=== PATIENT | female | born 1955 | race Caucasian/White ===

== ENCOUNTER 2023-09-14 13:28 | Outpatient (CLI) | payer MEDICARE, BC, SELFPAY ==
--- OUTSIDE RECORDS SUMMARY | 2023-09-14 13:34 | XMS_ITS | Continuity of Care Document ---
Author Name Unknown Organization [facility] Address [address] [place] [address] [address] [place] [address] Phone Care Team Providers Care Web Assistant Name Role Phone No Information Unavailable Unavailable Procedures Procedure Date Office consultation, moderate 9 X-ray exam lwr spine, min 4 views X-ray exam of pelvis, 1-2 views 009 Advance Directives Directive Yes / No Effective Date File Name No Information Encounters Encounter Description Practice Location Reason(s) For Visit Diagnoses Date Provider Providers Copied on Encounter [facility], [address] [place] [address], [facility], tel:[phone] No Information 4-200 9 No Information Office consultation, moderate Z [facility], [address], [address], [place] tel:[phone] [facility] No Information [address]ir. [facility], [address], [id number], [place]. tel:[phone] Family History Family Member Type Diagnosis Age At Onset No Information Payers Payer name Insurance type Covered republican ID [employer] tibrain(s) [employer] WC [id number] [employer] CI [id number] Social History Type Description Quantity Date Captured Comments Sex Female Smoking Status No Information Chief Complaint And Reason For Visit No Information Reason For Referral Reason For Referral No Information History Of Present Illness Encounter Date Complaint History Of Prese nt Illness No Information Functional Status Date Functional Assessmen t No Information Instructions Date Instruction Additional Infor mation No Information Assessments Type Assessment Date No Information Patient Care Teams Name Effective Dates (start - stop) Status Members No Information
== END 2023-09-14 13:29 | disposition home or self-care (01) ==
LOC: INJ CL 13:32
PROVIDERS: PCP Surgery; Visit Provider Family Medicine
DX: M17.12 Unilateral primary osteoarthritis, left knee (principal); M25.562 Pain in left knee
CPT/HCPCS: 64454

== ENCOUNTER 2023-10-05 13:15 | Outpatient (CLI) | payer MEDICARE, BC, SELFPAY | END 2023-10-05 13:16 | disposition home or self-care (01) | LOC: INJ CL 13:16 | PROVIDERS: PCP Surgery; Visit Provider Family Medicine | DX: M17.12 Unilateral primary osteoarthritis, left knee (principal); M25.562 Pain in left knee; G89.29 Other chronic pain | CPT/HCPCS: 64624; J2250; J3010 ==

== ENCOUNTER 2024-04-11 14:48 | Outpatient (CLI) | payer MEDICARE, BC, SELFPAY | END 2024-04-11 14:49 | disposition home or self-care (01) | PROVIDERS: PCP Surgery; Visit Provider Family Medicine | DX: M17.12 Unilateral primary osteoarthritis, left knee (principal); M25.562 Pain in left knee | CPT/HCPCS: 64454 ==

== ENCOUNTER 2024-05-09 12:03 | Outpatient (CLI) | payer MEDICARE, BC, SELFPAY ==
--- OUTSIDE RECORDS SUMMARY | 2024-05-09 12:07 | XMS_ITS | Clinical Summary ---
Author Organization [facility] Address [address] [place] [address] Care Team Providers Care Project Account Manager Name Role Phone Arnoldo Mejia MD Primary Care Provider [phone] Allergies Active Allergy Reactions Criticality Noted Date Comments Alendronate Other (See Comments) 12/12/2021 Tooth problem - possible osteonecrosis Blood-Group Specific Substance Other (See Comments) Low 02/26/2019 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 Blood products may be delayed. Draw patient 24 hours prior to transfusion. Draw one red top and two purple top tubes for all type and screen orders. Patient has an anti-Tiara antibody. Blood products may be delayed. Draw patient 24 hours prior to transfusion. For [facility] testing, draw one red top and two purple top tubes for all Type and Screen orders. Cefazolin Anaphylaxis High 07/23/2016 Tolerates cephalexin Ibuprofen Other (See Comments),Unknown Medium 07/22/2009 6 unit upper GI bleed. Oxycodone-Acetaminop hen Visual Disturbance Low 05/09/2009 Oxycodone-Acetaminop hen Low 08/18/2021 Hallucination, tolerates [place] and plain APAP Salicylates Other (See Comments),Unknown Low 03/08/2009 Contraindicated Medications Medication Sig Dispensed Refills Start Date End Date Status allopurinol (ZYLOPRIM) 300 MG tablet Take 300 mg by mouth daily Active calcium-vitamin D (OSCAL) 250-125 MG-UNIT TABS per tablet Take 1 tablet by mouth 2 times daily Active escitalopram (LEXAPRO) 20 MG tablet Take 20 mg by mouth daily Active Surprise-3 Fatty Acids (FISH OIL) 600 MG CAPS Take 2 capsules by mouth daily Active metFORMIN (GLUCOPHAGE) 1000 MG tablet Take 1,000 mg by mouth 2 times daily (with meals) Active multivitamin w/minerals (THERA-VIT-M) tablet Take 1 tablet by mouth daily Active omeprazole (PRILOSEC) [address] capsule Take 20 mg by mouth daily Active triamterene-HCTZ (MAXZIDE-25) 37.5-25 MG tablet Take 1 tablet by mouth every morning Active buPROPion (WELLBUTRIN SR) 150 MG 12 hr tablet Take 150 mg by mouth 2 times daily Active atorvastatin (LIPITOR) 20 MG tablet Take 20 mg by mouth At Bedtime Active pramipexole (MIRAPEX) 0.125 MG tablet Take 0.25 mg by mouth At Bedtime Active aspirin 81 MG EC tablet Take 81 mg by mouth daily Active fentaNYL (DURAGESIC) 25 mcg/hr [address] 1 patch onto the skin every 72 hours 03/27/2024 Active FEROSUL 325 (65 Fe) MG tablet Take 325 mg by mouth daily (with breakfast) 03/16/2024 Active gabapentin (NEURONTIN) 600 MG tablet Take 1,200 mg by mouth 3 times daily 03/10/2024 Active Glucosamine-Chond roitin 250-200 MG TABS Take 1 tablet by mouth 2 times daily Active HYDROcodone-aceta minophen (NORCO) 10-325 MG per tablet TAKE 1 TABLET BY MOUTH EVERY 4 HOURS NEEDED FOR PAIN . DO NOT EXCEED 6 PER 24 HOURS (USE DATES 04/21/24-05/20/24 ) Active losartan (COZAAR) 25 MG tablet Take 1 tablet by mouth daily 03/04/2024 Active methocarbamol (ROBAXIN) 750 MG tablet Take 750 mg by mouth 3 times daily as needed for muscle spasms Active acetaminophen (TYLENOL) 500 MG tablet Take 500-1,000 mg by mouth every 8 hours as needed for mild pain Active Vitamin D3 (CHOLECALCIFEROL) 25 mcg (1000 units) tablet Take 25 mcg by mouth daily 4 Discontinued (Med Rec(No AVS / No eCancel)) Cinnamon Bark POWD Take 500 mg by mouth 2 times daily 4 Discontinued (Med Rec(No AVS / No eCancel)) cyclobenzaprine (FLEXERIL) 10 MG tablet Take 10 mg by mouth 3 times daily as needed for muscle spasms 4 Discontinued (Med Rec(No AVS / No eCancel)) fentaNYL (DURAGESIC) 50 mcg/hr [address] 1 patch onto the skin every 72 hours remove old patch. 4 Discontinued (Med Rec(No AVS / No eCancel)) lisinopril (ZESTRIL) 5 MG tablet Take 5 mg by mouth daily 4 Discontinued (Med Rec(No AVS / No eCancel)) nystatin-triamcin olone (MYCOLOG II) 484866-9.1 UNIT/GM-% external cream Apply topically 4 times daily 4 Discontinued (Med Rec(No AVS / No eCancel)) vitamin E 400 units TABS Take 400 Units by mouth daily 4 Discontinued (Med Rec(No AVS / No eCancel)) Misc Natural Products (OSTEO BI-FLEX/5-LOXIN ADVANCED PO) Take 1 tablet by mouth daily 4 Discontinued (Med Rec(No AVS / No eCancel)) ketotifen (ZADITOR) 0.025 % ophthalmic solution Place 1 drop into both eyes 2 times daily as needed for itching 4 Discontinued (Med Rec(No AVS / No eCancel)) senna-docusate (SENOKOT-S/MIKAELA LACE) 8.6-50 MG tabletIndications :Status post total replacement of right hip Take 1 tablet by mouth 2 times daily Take while on oral narcotics to prevent or treat constipation. 40 tablet 09/16/2021 4 Discontinued (Med Rec(No AVS / No eCancel)) aspirin 81 MG EC tabletIndications :Status post total replacement of right hip Take 1 tablet (81 mg) by mouth 2 times daily 60 tablet 09/16/2021 4 Discontinued (Med Rec(No AVS / No eCancel)) Ferrous Sulfate 324 (65 Fe) MG TBECIndications:A nemia due to blood loss, acute Take 1.0031 tablets (325 mg) by mouth daily 90 tablet 09/19/2021 4 Discontinued (Med Rec(No AVS / No eCancel)) gabapentin (NEURONTIN) 300 MG capsuleIndication s:Status post total replacement of right hip Take 2 capsules (600 mg) by mouth 3 times daily 30 capsule 09/19/2021 4 Discontinued (Med Rec(No AVS / No eCancel)) HYDROmorphone (DILAUDID) 2 MG tabletIndications :Status post total replacement of right hip Take 1 tablet (2 mg) by mouth 4 times daily as needed for moderate to severe pain or severe pain (2 mg for moderate pain and 4 mg for severe pain) 2 mg four times/day prn 26 tablet 09/19/2021 4 Discontinued (Med Rec(No AVS / No eCancel)) acetaminophen (TYLENOL) 325 MG tabletIndications :Status post total replacement of left hip Take 3 tablets (975 mg) by mouth 3 times daily 30 tablet 09/19/2021 4 Discontinued (Med Rec(No AVS / No eCancel)) levofloxacin (LEVAQUIN) 750 MG tabletIndications :Pneumonia due to infectious organism, unspecified laterality, unspecified part of lung Take 1 tablet (750 mg) by mouth daily for 4 days 4 tablet 04/29/2024 4 Active Problems Problem Noted Date Diagnosed Date Pneumonia due to infectious organism, unspecified laterality, unspecified part of lung 04/26/2024 Sepsis with encephalopathy w ithout septic shock, due to unspecified organism 04/26/2024 Chronic, continuous use of opioids 04/26/2024 Family history of colon cancer 04/26/2024 Tibial plateau fracture, rig ht, closed, with routine healing, subsequent encounter 04/26/2024 Vitamin D deficiency 04/26/2024 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 The antibody is directed against the [place] antigen. It is not difficult to screen for and fully crossmatch [place] negative RBCs (about 93% of donor population) but this will add 1-2 hours to provision of antigen negative fully crossmatched RBC units. Pedro Plata MD, 04/08/2021 10:44 AM Iron deficiency 02/12/2021 Nephrolithiasis 04/03/2019 Ascending aorta dilatation (H24) 04/08/2018 CAD in [place] artery 10/15/2016 Osteopenia 07/03/2016 Type 2 diabetes mellitus without complication Lumbar spinal stenosis 02/11/2015 Anxiety state 10/22/2009 Dyslipidemia 07/16/2009 HTN (hypertension) 07/16/2009 Hypothyroidism 07/16/2009 Compression fx, lumbar spine 01/23/2009 Depressive disorder 02/22/2007 Restless legs syndrome (RLS) 02/22/2007 Encounters Date Type Department Care Team Description 04/26/2024 10:10 AM CDT - 04/29/2024 1:58 PM CDT Hospital Encounter [facility] [address] [place] [address] Connor Mast MD Schotl, Brent, MD Imholte, Philip B, MD Pneumonia due to infectious organism, unspecified laterality, unspecified part of lung; Sepsis with encephalopathy without septic shock, due to unspecified organism (H) Discharge Disposition: Home or Self Care 04/26/2024 Travel from Last 3 Months Immunizations Name Administration Dates Next Due Hepatitis B, Adult 01/12/1997,12/22/1996 Influenza (H1N1) 10/22/2009 Influenza (High Dose) 3 tyler nt vaccine 07/21/2019 Influenza (intradermal) 09/07/2018,07/28,10/05/2017,2015,08/20/2015,08/12/2015,08/11/2015,1 ,08/18/2013,07/14/2012, 011,09/22/2010,07/19/2009,09/17/2008,,08/03/2003 Influenza Vaccine 65+ (Fluzone HD) 09/20/2021, Pneumo Conj 13-V (2010&after) 02/03/2019 Pneumococcal 23 valent 12/01/2010 TD,PF 7+ (Tenivac) 08/29/2001 Tdap (Adult) Unspecified Formulation 04/08/2021, 12/01/2010 Social History Tobacco Use Types Packs/Day Years Used Date Smoking Tobacco: Never Smokeless Tobacco: Never Alcohol Use Standard Drinks/Week Comments Never 0 (1 standard drink = 0.6 oz pur e alcohol) Adolescent Education Answer Date Record ed Getting School Help Needed Not on file 08/11 Sex and Gender Information Value Date Recorded Sex Assigned at Not on file Gender Identity Not on file Sexual Orientation Not on file Last Filed Vital Signs Vital Sign Reading Time Taken Comments Blood Pressure 131/73 04/29/2024 1:04 PM CDT Pulse 83 04/29/2024 1:04 PM CDT Temperature 36.6 ??C (97.8 ??F) 04/29/2024 1:04 PM CD T Respiratory Rate 18 04/29/2024 1:04 PM CDT Oxygen Saturation 90% 04/29/2024 1:04 PM CDT Inhaled Oxygen Concentration - - Weight 108.1 kg (238 lb 6.4 oz) 04/28/2024 4:50 AM CDT Height 154.9 cm (5' 1) 04/26/2024 10:1 5 AM CDT Body Mass Index 45.05 04/26/2024 10:15 AM CDT Plan of Treatment Health Maintenance Due Date Last Done Comments ADVANCE CARE PLANNING 1955 ANNUAL REVIEW OF HM ORDERS 1953 CONTROLLED SUBSTANCE AGREEMENT FOR CHRONIC PAIN MANAGEMENT 1953 CT COLONOGRAPHY 1953 DEXA 1953 DIABETIC FOOT EXAM 1953 FIT 1953 FLEX SIG 1953 MIGUEL ASSESSMENT 1953 LIPID 1953 MICROALBUMIN 1953 PHQ-9 1953 URINE DRUG SCREEN 1953 sDNA (Cologuard) 1953 HEPATITIS C SCREENING 1971 RSV VACCINE ( & 60+) (1 - 1-dose 60+ series) 2013 FALL RISK ASSESSMENT 2018 EYE EXAM 08/11/2022 08/11/2021 PHQ-2 (once per calendar year) 2023 MEDICARE ANNUAL WELLNESS VISIT 10/29/2023 10/29/2022 COVID-19 Vaccine (2022- season) 2024 11/29/2023, 09/28/2022, 06/15/2022, Additional history exists INFLUENZA VACCINE (#1) 2024 , 07/15/2022, 09/20/2021, Additional history exists A1C 07/27/2024 04/26/2024, 08/18/2021 MAMMO SCREENING 11/17/2024 11/17/2022, 10/26, 03/07/2021 BMP 04/29/2025 04/29/2024, 07/0 02/2024, 04/27/2024, Additional history exists COLONOSCOPY 08/08/2030 08/08/2020 COLORECTAL CANCER SCREENING 08/08/2030 DTAP/TDAP/TD IMMUNIZATION (3 - Td or Tdap) 04/08/2031 04/08/2021, 04/08/2021, 12/01/2010, Additional history exists Pneumococcal Vaccine: 65+ Years Completed 09/28/2022, 02/03/2019, 12/01/2010 ZOSTER IMMUNIZATION Completed 02/11/2023, 3 HPV IMMUNIZATION Aged Out No longer e ligible based on patient's age to complete this topic IPV IMMUNIZATION Aged Out No longer e ligible based on patient's age to complete this topic MENINGITIS IMMUNIZATION Aged Out No l onger eligible based on patient's age to complete this topic RSV MONOCLONAL ANTIBODY Aged Out No l onger eligible based on patient's age to complete this topic Medical Devices Implanted Type Area Merchandise Appraiser Device Identifier Shelf Expiration Date Model / Serial / Lot Imp Adams Hole Eliminator Hip Depuy Duraloc 1246-03-000 - [id number] Implanted:Qty : 1 on 09/16/2021 by Ehsan Dumont MD at [facility] Metallic Hardware/An chor Right: Hip [employer]- [id number] 03/24/2031 [id number] / / [id number] Imp Scr Bone Can Aram 6.5x30mm 1217-30-500 - [id number] Implanted:Qty : 1 on 09/16/2021 by Ehsan Dumont MD at [facility] Metallic Hardware/An chor Right: Hip [employer] [id number] 05/24/2031 [id number] / / [id number] Imp Scr Bone Can Aram 6.5x25mm 1217--500 - [id number] Implanted:Qty : 1 on 09/16/2021 by Ehsan Dumont MD at [facility] Metallic Hardware/An chor Right: Hip [employer] [id number] 11/24/2030 [id number] / / [id number] Shell Allons Sector W/ Gription 52mm - [id number] Implanted:Qty : 1 on 09/16/2021 by Ehsan Dumont MD at [facility] Total Joint Component/I nsert Right: Hip [employer] 07/24/2031 1217-32-052 / / [id number] Liner Acetabular Altrx +4 Neut 98n40uc - [id number] Implanted:Qty : 1 on 09/16/2021 by Ehsan Dumont MD at [facility] Total Joint Component/I nsert Right: Hip [employer] [id number] 07/24/2026 1221-36-452 / / [id number] Imp Head Femoral Depuy Ceramic 36mm +8mm 1365-36-330 - [id number] Implanted:Qty : 1 on 09/16/2021 by Ehsan Dumont MD at [facility] Total Joint Component/I nsert Right: Hip [employer] [id number] 04/23/2026 [id number] / / [id number] Imp Stem Fem Depuy Actis Std Collar Tpr Sz 6mm 1010-11-060 - [id number] Implanted:Qty : 1 on 09/16/2021 by Ehsan Dumont MD at [facility] Total Joint Component/I nsert Right: Hip [facility] [id number] 08/24/2031 [id number] / / [id number] Procedures Procedure Name Priority Date/Time Associated Diagnosis Comments GLUCOSE BY METER Routine 04/29/2024 11:1 5 AM CDT GLUCOSE BY METER Routine 04/29/2024 7:34 AM CDT EXTRA SERUM SEPARATOR TUBE (SST) Routine 04/29/2024 5:27 AM CDT EXTRA BLUE TOP TUBE Routine 04/29/2024 5 :27 AM CDT EXTRA TUBE Routine 04/29/2024 5:27 AM CDT PROCALCITONIN Routine 04/29/2024 5:27 AM CDT BASIC METABOLIC PANEL Routine 04/29/2024 5:27 AM CDT CBC WITH PLATELETS Routine 04/29/2024 5: 27 AM CDT GLUCOSE BY METER Routine 04/28/2024 9:21 PM CDT GLUCOSE BY METER Routine 04/28/2024 4:56 PM CDT GLUCOSE BY METER Routine 04/28/2024 11:3 2 AM CDT PROCALCITONIN Add-On 04/28/2024 5:55 AM CDT BASIC METABOLIC PANEL Routine 04/28/2024 5:55 AM CDT CBC WITH PLATELETS Routine 04/28/2024 5: 55 AM CDT GLUCOSE BY METER Routine 04/27/2024 9:55 PM CDT GLUCOSE BY METER Routine 04/27/2024 4:12 PM CDT GLUCOSE BY METER Routine 04/27/2024 11:1 7 AM CDT LEGIONELLA URINARY ANTIGEN AND STREPTOCOCCUS PNEUMONIAE ANTIGEN Routine 04/27/2024 9:33 AM CDT BASIC METABOLIC PANEL Routine 04/27/2024 7:52 AM CDT CBC WITH PLATELETS Routine 04/27/2024 7: 52 AM CDT GLUCOSE BY METER Routine 04/27/2024 7:31 AM CDT XR CHEST 2 VIEWS Routine 04/27/2024 7:03 AM CDT GLUCOSE BY METER Routine 04/26/2024 10:0 3 PM CDT GLUCOSE BY METER Routine 04/26/2024 4:09 PM CDT EKG 12-LEAD, TRACING ONLY STAT 04/26/2024 1:39 PM CDT LACTIC ACID WHOLE BLOOD STAT 04/26/2024 12:42 PM CDT ROUTINE UA WITH MICROSCOPIC REFLEX TO CULTURE STAT 04/26/2024 11:09 AM CDT XR CHEST PORT 1 VIEW STAT 04/26/2024 11:05 AM CDT BLOOD GAS VENOUS STAT 04/26/2024 10:5 7 AM CDT BLOOD CULTURE STAT 04/26/2024 10:46 AM CDT BLOOD CULTURE STAT 04/26/2024 10:46 AM CDT MRSA MSSA PCR, NASAL SWAB STAT 04/26/2024 10:37 AM CDT INFLUENZA A/B, RSV, & SARS-COV2 PCR STAT 04/26/2024 10:37 AM CDT PROCALCITONIN Add-On 04/26/2024 10:32 AM CDT TSH WITH FREE T4 REFLEX Add-On 04/26/2024 10:32 AM CDT EXTRA RED TOP TUBE STAT 04/26/2024 10 :32 AM CDT EXTRA BLUE TOP TUBE STAT 04/26/2024 1 0:32 AM CDT EXTRA TUBE STAT 04/26/2024 10:32 AM CDT CBC WITH PLATELETS & DIFFERENTIAL STAT 04/26/2024 10:30 AM CDT HEMOGLOBIN A1C Add-On 04/26/2024 10:30 AM CDT NT PROBNP INPATIENT STAT 04/26/2024 1 0:30 AM CDT CBC WITH PLATELETS AND DIFFERENTIAL STAT 04/26/2024 10:30 AM CDT LACTIC ACID WHOLE BLOOD WITH 1X REPEAT IN 2 HR WHEN >2 STAT 04/26/2024 10:30 AM CDT COMPREHENSIVE METABOLIC PANEL STAT 04/26/2024 10:30 AM CDT MA SCREENING BILATERAL W/ CORY Routine 11/17/2022 10:37 AM 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 [facility] GLUCOSE BY METER POCT 137(H) 70 - 99 mg/dL 04/29/2024 11:22 AM CDT LABORATORY Blood, Capillary BLOOD SPECIMEN / Unknown 04/29/2024 11:15 AM CDT 04/29/2024 11:22 AM CDT Chris Ford MD LAB - BEAKER POCT LABORATORY [facility] [address] [facility] [address], [facility] [phone] * Extra Serum Separator Tube (SST) (04/29/2024 5:27 AM CDT) Hold Specimen [facility] 04/29/2024 6:46 AM CDT LABORATORY Blood STRUCTURE OF RIGHT UPPER LIMB / Unknown Venipuncture / Unknown 04/29/2024 5:27 AM CDT 04/29/2024 5:42 AM CDT Chris Ford MD LAB - BLOOD ORDERABL ES Performing Organization Address [facility]/ZIP Co de Phone Number LABORATORY [facility] [address] [place] [address] [place] [address], [facility] [phone] * Extra Blue Top Tube (04/29/2024 5:27 AM CDT) Only the most recent of2 resultswithin the time period is included. Hold Specimen [facility] 04/29/2024 6:46 AM CDT LABORATORY Blood STRUCTURE OF RIGHT UPPER LIMB / Unknown Venipuncture / Unknown 04/29/2024 5:27 AM CDT 04/29/2024 5:43 AM CDT Chris Ford MD LAB - BLOOD ORDERABL ES LABORATORY [facility] [address] [place] [address], [facility] [phone] * Procalcitonin (04/29/2024 5:27 AM CDT) Only the most recent of3 resultswithin the time period is included. [facility] Procalcitonin 0.40 <0.50 ng/mL 04/29/2024 6:26 AM CDT LABORATORY Comment: Interpretation and Recommendations <0.5 ng/mL: Systemic bacterial infection unlikely. Local bacterial infection is possible. 0.5-1.99 ng/mL: Systemic bacterial infection possible, but various other conditions are known to induce PCT as well. >=2.00 ng/mL: Systemic bacterial infection likely, unless other causes are known. Decision to start antibiotics should not be based on procalcitonin level alone. See Procalcitonin Guidance document for more details. [email or web address] Factors that may affect PCT levels (not all-inclusive): ?? - Increased PCT level ?Severe trauma/espitia ?Invasive surgery ?Cooling therapy after cardiac arrest/surgery ?Treatment with agents which stimulate cytokines ?Acute kidney injury ?Chronic kidney disease and end stage renal disease ?Acute graft vs host disease ?Non-specific shock causing decreased organ perfusion and/or infarction ?? - Normal or unchanged PCT level ?Early in infections (if low and infection is suspected, repeating in 6-12 hours is recommended) ?Chronic infections (endocarditis, osteomyelitis, prosthetic device/graft infections) ?Localized infections (cellulitis, wound infections, intra-abdominal abscess) Note: PCT has not been extensively studied in /, pediatrics, severe immunosuppression, and cystic fibrosis. Blood STRUCTURE OF RIGHT UPPER LIMB / Unknown Venipuncture / Unknown 04/29/2024 5:27 AM CDT 04/29/2024 5:43 AM CDT Chris Ford MD LAB - BLOOD ORDERABL ES LABORATORY [facility] [address] [facility] [place] [address], [facility] [phone] * (ABNORMAL) Basic metabolic panel (04/29/2024 5:27 AM CDT) Only the most recent of3 resultswithin the time period is included. Sodium 136 135 - 145 mmol/L 04/29/2024 6:21 AM CDT LABORATORY Potassium 3.8 3.4 - 5.3 mmol/L 04/29/2024 6:21 AM T LABORATORY Chloride 96(L) 98 - 107 mmol/L 04/29/2024 6:21 AM T LABORATORY Carbon Dioxide (CO2) 33(H) 22 - 29 mmol/L 04/29/2024 6:21 AM [facility] LABOR[facility] Anion Gap 7 7 - 15 mmol/L 04/29/2024 6:21 AM T LABORATORY Urea Nitrogen 17.9 8.0 - 23.0 mg/dL 04/29/2024 6:21 AM T LABORATORY Creatinine 0.77 0.51 - 0.95 mg/dL 04/29/2024 6:21 AM T LABORATORY GFR Estimate 83 >60 mL/min/1.7 3m2 04/29/2024 6:21 AM [facility] LABORATORY Comment:eGFR calculated 2020 CKD-EPI equation. Calcium 9.1 8.8 - 10.2 mg/dL 04/29/2024 6:21 AM T LABORATORY Glucose 134(H) 70 - 99 mg/dL 04/29/2024 6:21 AM T LABORATORY Blood STRUCTURE OF RIGHT UPPER LIMB / Unknown Venipuncture / Unknown 04/29/2024 5:27 AM CDT 04/29/2024 5:43 AM CDT Chris Ford MD LAB - BLOOD ORDERABL ES LABORATORY [facility] [address] [facility] [place] [address], [facility] [phone] * (ABNORMAL) CBC with platelets (04/29/2024 5:27 AM CDT) Only the most recent of3 resultswithin the time period is included. WBC Count 6.0 4.0 - 11.0 10e3/uL 04/29/2024 5:48 AM CDT LABORATORY RBC Count 3.44(L) 3.80 - 5.20 10e6/uL 04/29/2024 5:48 AM CDT LABORATORY Hemoglobin 10.9(L) 11.7 - 15.7 g/dL 04/29/2024 5:48 AM CDT LABORATORY Hematocrit 33.2(L) 35.0 - 47.0 % 04/29/2024 5:48 AM CDT LABORATORY MCV 97 78 - 100 fL 04/29/2024 5:48 AM CDT LABORATORY MCH 31.7 26.5 - 33.0 pg 04/29/2024 5:48 AM CDT LABORATORY MCHC 32.8 31.5 - 36.5 g/dL 04/29/2024 5:48 AM CDT LABORATORY RDW 13.4 10.0 - 15.0 % 04/29/2024 5:48 AM CDT LABORATORY Platelet Count 151 150 - 450 10e3/uL 04/29/2024 5:48 AM CDT LABORATORY Blood STRUCTURE OF RIGHT UPPER LIMB / Unknown Venipuncture / Unknown 04/29/2024 5:27 AM CDT 04/29/2024 5:42 AM CDT Chris Ford MD LAB - BLOOD ORDERABL ES LABORATORY [facility] [address] [place] [address], [facility] [phone] * Legionella Urinary Antigen and Streptococcus pneumoniae antigen (04/27/2024 9:33 AM CDT) Pathologist [facility] Legionella pneumophila serogroup 1 urinary antigen Negative Negative KYLE 04/28/2024 3:22 PM CDT [facility] Comment:A negative result do es not exclude the possibility of a Legionella infection, as it can be caused by other serogroups and species of Legionella. Streptococcus pneumoniae antigen Negative Negative KYLE 04/28/2024 3:22 PM CDT [facility] Comment:A negative result do es not exclude a Streptococcus pneumoniae infection. Urine URINE SPECIMEN OBTAINED BY CLEAN CATCH PROCEDURE / Unknown Non-blood Collection / Unknown 04/27/2024 9:33 AM CDT 04/27/2024 11:06 AM CDT Narrative [facility] - 04/28/2024 3:22 PM CDT The result of this test as well as culture, serology, or other antigen detection methods should be used in conjunction with clinical findings to make an accurate diagnosis. Chris Ford MD LAB - MICRO GENERAL ORDERABLES [facility]AT[facility] Inf. Diseases Diag. Lab [address] [facility], [address] [place], [place] [phone] * XR Chest 2 Views (04/27/2024 7:03 AM CDT) Anatomical Region Laterality Modality Chest Computed Radiogr aphy 04/27/2024 6:46 AM CDT Impressions 04/27/2024 9:37 AM CDT IMPRESSION: Left lower lobe pneumonia. THIS DOCUMENT HAS BEEN ELECTRONICALLY SIGNED BY RY MASON MD Narrative 04/27/2024 9:37 AM CDT PROCEDURE INFORMATION: Exam: XR Chest Exam date and time: 04/27/2024 6:46 AM Age: 68 years old Clinical indication: Other: Sepsis TECHNIQUE: Imaging protocol: Radiologic exam of the chest. Views: 2 views. COMPARISON: CR XR CHEST PORT 1 VIEW 04/26/2024 10:57 AM FINDINGS: Lungs: There is consolidation in the left lower lung zone likely lower lobe developed/worsened compared to yesterday's study. Normal pulmonary vasculature. Pleural spaces: Unremarkable. No pleural effusion. No pneumothorax. Heart/Mediastinum: Normal heart size. TAVR. Bones/joints: Unremarkable. Procedure Note Ry Mason MD - 04/27/2024 PROCEDURE INFORMATION: Exam: XR Chest Exam date and time: 04/27/2024 6:46 AM Age: 68 years old Clinical indication: Other: Sepsis TECHNIQUE: Imaging protocol: Radiologic exam of the chest. Views: 2 views. COMPARISON: CR XR CHEST PORT 1 VIEW 04/26/2024 10:57 AM FINDINGS: Lungs: There is consolidation in the left lower lung zone likely lowerlobe developed/worsened compared to yesterday's study. Normal pulmonaryvasculature. Pleural spaces: Unremarkable. No pleural effusion. No pneumothorax. Heart/Mediastinum: Normal heart size. TAVR. Bones/joints: Unremarkable. IMPRESSION: Left lower lobe pneumonia. THIS DOCUMENT HAS BEEN ELECTRONICALLY SIGNED BY RY MASON MD Mike Gill MD IMG DIAGNOSTIC IMAGI NG ORDERABLES * EKG 12-lead, tracing only (04/26/2024 1:39 PM CDT) Systolic Blood Pressure mmHg RADIOLOGY RESULTS Diastolic Blood Pressure mmHg RADIOLOGY RESULTS Ventricular Rate 102 BPM RAD IOLOGY RESULTS Atrial Rate 102 BPM RADIOLOG Y RESULTS MN Interval 190 ms RADIOLOG Y RESULTS QRS Duration 106 ms RADIOLO GY RESULTS QT 386 ms RADIOLOGY RESULTS QTc 503 ms RADIOLOGY RESULTS P [place] 33 degrees RADIOLOGY RESULTS R AXIS 17 degrees RADIOLOGY RESULTS T [place] 42 degrees RADIOLOGY RESULTS Interpretation ECG wandering baseline limits interpretation supraventricular rhythm. No previous ECGs available Confirmed by MD MANFRED, [facility] ([id number]) on 04/28/2024 10:10:35 AM RADIOLOGY RESULTS 04/26/2024 1:39 PM CDT 04/28/2024 10:10 AM CDT Connor Mast MD ECG ORDERABLES RADIOLOGY RESULTS * Lactic acid whole blood (04/26/2024 12:42 PM CDT) Lactic Acid 1.6 0.7 - 2.0 mmol/L 04/26/2024 12:45 PM CDT LABORATORY Blood BLOOD SPECIMEN / Unknown Venipuncture / Unknown 04/26/2024 12:42 PM CDT 04/26/2024 12:43 PM CDT Connor Mast MD LAB - BLOOD ORDERABL ES LABORATORY [facility] [address] [place] [address], [facility] [phone] * (ABNORMAL) UA with Microscopic reflex to Culture (04/26/2024 11:09 AM CDT) Color Urine Light Yellow Colorless, Straw, Light Yellow, Yellow 04/26/2024 11:18 AM CDT LABORATORY Appearance Urine Clear Clear 04/26/20 11:18 AM CDT LABORATORY Glucose Urine Negative Negative mg/dL 04/26/2024 11:18 AM CDT LABORATORY Bilirubin Urine Negative Negative 11:18 AM CDT LABORATORY Ketones Urine Negative Negative mg/dL 04/26/2024 11:18 AM CDT LABORATORY Specific [place] Urine 1.012 1.000 - 1.030 04/26/2024 11:18 AM CDT LABORATORY Blood Urine Negative Negative 04/26/2024 11:18 AM CDT LABORATORY pH Urine 7.5 5.0 - 9.0 04/26/2024 11:18 AM CDT LABORATORY Protein Albumin Urine 200(A) Negative mg/dL 04/26/2024 11:18 AM CDT LABORATORY Urobilinogen Urine 2.0 Normal, 2.0 mg/dL 04/26/2024 11:18 AM CDT LABORATORY Nitrite Urine Negative Negative 04/26/2024 11:18 AM CDT LABORATORY Leukocyte Esterase Urine Negative Negative 04/26/2024 11:18 AM CDT LABORATORY RBC Urine 1 <=2 /HPF 04/26/2024 11:18 AM CDT LABORATORY WBC Urine 1 <=5 /HPF 04/26/2024 11:18 AM CDT LABORATORY Urine URINE SPECIMEN FROM URINARY CONDUIT / Unknown Non-blood Collection / Unknown 04/26/2024 11:09 AM CDT 04/26/2024 11:13 AM CDT Narrative LABORATORY - 04/26/2024 11:18 AM CDT Urine Culture not indicated Connor Mast MD LAB - URINE ORDERABL ES LABORATORY [facility] [address] [place] [address], [facility] [phone] * XR Chest Port 1 View (04/26/2024 11:05 AM CDT) Anatomical Region Laterality Modality Chest Computed Radiogr aphy Impressions 04/26/2024 11:10 AM CDT Impression: Constellation of findings suggesting CHF with developing perihilar/ infrahilar pulmonary edema. No apparent pleural effusion. NIRMAL SHANNON MD Narrative 04/26/2024 11:10 AM CDT Procedure:XR CHEST PORT 1 VIEW Clinical history:Female, 68 years, Fever Technique: Single view was obtained. Comparison: No relevant prior imaging. Findings: The cardiac silhouette appears mildly enlarged. The pulmonary vasculature is distended and indistinct The lungs demonstrate diffuse interstitial thickening with patchy areas of airspace consolidation. Costophrenic angles are sharp Bony structures are unremarkable. Procedure Note Nirmal Shannon MD - 04/26/2024 Procedure:XR CHEST PORT 1 VIEW Clinical history:Female, 68 years, Fever Technique: Single view was obtained. Comparison: No relevant prior imaging. Findings: The cardiac silhouette appears mildly enlarged. The pulmonary vasculature is distended and indistinct The lungs demonstrate diffuse interstitial thickening with patchy areas of airspace consolidation. Costophrenic angles are sharp Bony structures are unremarkable. Impression: Constellation of findings suggesting CHF with developing perihilar/ infrahilar pulmonary edema. No apparent pleural effusion. NIRMAL SHANNON MD Connor Mast MD IMG DIAGNOSTIC IMAGI NG ORDERABLES * (ABNORMAL) Blood gas venous (04/26/2024 10:57 AM CDT) pH Venous 7.35 7.32 - 7.43 04/26/2024 11:01 AM CDT LABORATORY pCO2 Venous 58(H) 40 - 50 mm Hg 04/26/2024 11:01 AM CDT LABORATORY pO2 Venous 36 25 - 47 mm Hg 04/26/2024 11:01 AM CDT LABORATORY Bicarbonate Venous 32(H) 21 - 28 mmol/L 04/26/2024 11:01 AM CDT LABORATORY Base Excess/Deficit Venous 4.6(H) -3.0 - 3.0 mmol/L 04/26/2024 11:01 AM CDT LABORATORY FIO2 36 KYLE 04/26/2024 11:01 AM CDT LABORATORY Oxyhemoglobin Venous 65(L) 70 - 75 % 04/26/2024 11:01 AM CDT LABORATORY O2 Sat, Venous 66.3(L) 70.0 - 75.0 % 04/26/2024 11:01 AM CDT LABORATORY Blood, venous BLOOD SPECIMEN / Unknown Venipuncture / Unknown 04/26/2024 10:57 AM CDT 04/26/2024 10:57 AM CDT Narrative LABORATORY - 04/26/2024 11:01 AM CDT In healthy individuals, oxyhemoglobin (O2Hb) and oxygen saturation (SO2) are approximately equal. In the presence of dyshemoglobins, oxyhemoglobin can be considerably lower than oxygen saturation. Connor Mast MD LAB - BLOOD ORDERABL ES [facility] [address] [place] [address], [facility] [phone] * Blood Culture Peripheral Blood (04/26/2024 10:46 AM CDT) Only the most recent of2 resultswithin the time period is included. Culture No Growth 05/01/2024 11:01 AM CDT LABORATORY Blood BLOOD SPECIMEN / Unknown Venipuncture / Unknown 04/26/2024 10:46 AM CDT 04/26/2024 10:57 AM CDT Connor Mast MD LAB - MICRO GENERAL ORDERABLES [facility] [address] [place] [address], [facility] [phone] * Symptomatic Influenza A/B, RSV, & SARS-CoV2 PCR (COVID-19) Nose (04/26/2024 10:37 AM CDT) Influenza A PCR Negative Negative 04/26/2024 11:23 AM CDT LABORATORY Influenza B PCR Negative Negative 04/26/2024 11:23 AM CDT LABORATORY RSV PCR Negative Negative 04/26/2024 11:23 AM CDT LABORATORY SARS CoV2 PCR Negative Negative 04/26/2024 11:23 AM CDT LABORATORY Comment:NEGATIVE: SARS-CoV-2 (COVID-19) RNA not detected, presumed negative. Swab NASAL STRUCTURE / Unknown Non-blood Collection / Unknown 04/26/2024 10:37 AM CDT 04/26/2024 10:42 AM CDT Narrative LABORATORY - 04/26/2024 11:23 AM CDT Testing was performed using the Xpert Xpress CoV2/Flu/RSV Assay on the [employer] GeneXpert Instrument. This test should be ordered for the detection of SARS-CoV-2, influenza, and RSV viruses in individuals who meet clinical and/or epidemiological criteria. Test performance is unknown in asymptomatic patients. This test is for in vitro diagnostic use under the FDA EUA for laboratories certified under CLIA to perform high or moderate complexity testing. This test has not been FDA cleared or approved. A negative result does not rule out the presence of PCR inhibitors in the specimen or target RNA in concentration below the limit of detection for the assay. If only one viral target is positive but coinfection with multiple targets is suspected, the sample should be re-tested with another FDA cleared, approved, or authorized test, if coinfection would change clinical management. This test was validated by the [facility] [employer]. These laboratories are certified under the Clinical Laboratory Improvement Amendments of 1988 (CLIA-88) as qualified to perform high complexity laboratory testing. Connor Mast MD LAB - MICRO GENERAL ORDERABLES LABORATORY [facility] [address] [place] [address], [facility] [phone] * MRSA/MSSA PCR (04/26/2024 10:37 AM CDT) MRSA Target DNA Negative Negative 04/26/2024 8:25 PM CDT [facility] SA Target DNA Negative 04/26/2024 8:25 PM CDT [facility] Swab NASAL STRUCTURE / Unknown Non-blood Collection / Unknown 04/26/2024 10:37 AM CDT 04/26/2024 10:42 AM CDT Narrative [facility] - 04/26/2024 8:25 PM CDT The Cepheid?? Xpert SA Nasal Complete assay performed in the Instilling Values?? Dx System is a qualitative in vitro diagnostic test designed for rapid detection of Staphylococcus aureus (SA) and methicillin-resistant Staphylococcus aureus (MRSA) from nasal swabs in patients at risk for nasal colonization. The test utilizes automated real- time polymerase chain reaction (PCR) to detect MRSA/SA DNA. The Xpert SA Nasal Complete assay is intended to aid in the prevention and control of MRSA/SA infections in healthcare settings. The assay is not intended to diagnose, guide or monitor treatment for MRSA/SA infections, or provide results of susceptibility to methicillin. A negative result does not preclude MRSA/SA nasal colonization. Connor aMst MD LAB - MICRO GENERAL ORDERABLES [facility]ORAT[facility] Lab [address] [place] [address], [facility] * Extra Red Top Tube (04/26/2024 10:32 AM CDT) Pathologist [facility] Hold Specimen JIC 04/26/2024 11:47 AM CDT LABORATORY Blood BLOOD SPECIMEN / Unknown Venipuncture / Unknown 04/26/2024 10:32 AM CDT 04/26/2024 10:34 AM CDT Connor Mast MD LAB - BLOOD ORDERABL ES LABORATORY [facility] [address] [place] [address], [facility] [phone] * TSH with free T4 reflex (04/26/2024 10:32 AM CDT) TSH 2.17 0.30 - 4.20 uIU/mL 04/26/2024 1:49 PM CDT LABORATORY Blood BLOOD SPECIMEN / Unknown Venipuncture / Unknown 04/26/2024 10:32 AM CDT 04/26/2024 10:34 AM CDT Mike Gill MD LAB - BLOOD ORDERABL ES LABORATORY [facility] [address] [facility] [place] [address], [facility] [phone] * (ABNORMAL) Lactic Acid Whole Blood with 1X Repeat in 2 HR when >2 (04/26/2024 10:30 AM CDT) Lactic Acid, Initial 2.5(H) 0.7 - 2.0 mmol/L 04/26/2024 10:39 AM CDT LABORATORY Blood BLOOD SPECIMEN / Unknown Venipuncture / Unknown 04/26/2024 10:30 AM CDT 04/26/2024 10:34 AM CDT Connor Mast MD LAB - BLOOD ORDERABL ES LABORATORY [facility] [address] [facility] [place] [address], [facility] [phone] * (ABNORMAL) CBC with platelets and differential (04/26/2024 10:30 AM CDT) WBC Count 11.8(H) 4.0 - 11.0 10e3/uL 04/26/2024 10:39 AM CDT LABORATORY RBC Count 4.46 3.80 - 5.20 10e6/uL 04/26/2024 10:39 AM CDT LABORATORY Hemoglobin 14.2 11.7 - 15.7 g/dL 04/26/2024 10:39 AM CDT [facility] LAB[facility]ATORY Hematocrit 42.6 35.0 - 47.0 % 04/26/2024 10:39 AM CDT [facility] MCV 96 78 - 100 fL 04/26/2024 10:39 AM CDT [facility] MCH 31.8 26.5 - 33.0 pg 04/26/2024 10:39 AM CDT [facility] MCHC 33.3 31.5 - 36.5 g/dL 04/26/2024 10:39 AM CDT [facility] RDW 13.3 10.0 - 15.0 % 04/26/2024 10:39 AM CDT [facility] Platelet Count 162 150 - 450 10e3/uL 04/26/2024 10:39 AM CDT [facility] % Neutrophils 87 % 04/26/2024 10:39 AM CDT [facility] % Lymphocytes 6 % 04/26/2024 10:39 AM CDT [facility] % Monocytes 6 % 04/26/2024 10:39 AM CDT [facility] % Eosinophils 0 % 04/26/2024 10:39 AM CDT [facility] % Basophils 0 % 04/26/2024 10:39 AM CDT [facility] % Immature Granulocytes 0 % 04/26/2024 10:39 AM CDT [facility] NRBCs per 100 WBC 0 <1 /100 024 10:39 AM CDT [facility] Absolute Neutrophils 10.3(H) 1.6 - 8.3 10e3/uL 04/26/2024 10:39 AM CDT [facility] Absolute Lymphocytes 0.7(L) 0.8 - 5.3 10e3/uL 04/26/2024 10:39 AM CDT [facility] Absolute Monocytes 0.7 0.0 - 1.3 10e3/uL 04/26/2024 10:39 AM CDT [facility] LAB[facility]AT[facility] Absolute Eosinophils 0.0 0.0 - 0.7 10e3/uL 04/26/2024 10:39 AM CDT [facility]AT[facility] Absolute Basophils 0.0 0.0 - 0.2 10e3/uL 04/26/2024 10:39 AM CDT [facility] LAB[facility]AT[facility] Absolute Immature Granulocytes 0.1 <=0.4 10e3/uL 04/26/2024 10:39 AM CDT [facility] LAB[facility]AT[facility] Absolute NRBCs 0.0 10e3/uL 04/26/2024 10:39 AM CDT [facility] LAB[facility]AT[facility] Blood BLOOD SPECIMEN / Unknown Venipuncture / Unknown 04/26/2024 10:30 AM CDT 04/26/2024 10:34 AM CDT Connor Mast MD LAB - BLOOD ORDERABL ES LABORATORY [facility] [address] [facility] [facility] [address], [facility] [phone] * NT pro BNP (04/26/2024 10:30 AM CDT) N terminal Pro BNP Inpatient 400 0 - 900 pg/mL 04/26/2024 11:27 AM CDT LABORATORY Comment: Reference range shown and results flagged as abnormal are suggested inpatient cut points for confirming diagnosis if CHF in an acute setting. Establishing a baseline value for each individual patient is useful for follow-up. An inpatient or emergency department NT-proPBNP <300 pg/mL effectively rules out acute CHF, with 99% negative predictive value. The outpatient non-acute reference range for ruling out CHF is: 0-125 pg/mL (age 18 to less than 75) 0-450 pg/mL (age 75 yrs and older) Blood BLOOD SPECIMEN / Unknown Venipuncture / Unknown 04/26/2024 10:30 AM CDT 04/26/2024 10:34 AM CDT Connor Mast MD LAB - BLOOD ORDERABL ES LABORATORY [facility] [address] [place] [address] [place] [address], [facility] [phone] * Hemoglobin A1c (04/26/2024 10:30 AM CDT) Hemoglobin A1C 6.2 4.0 - 6.2 % 04/26/2024 1:31 PM CDT LABORATORY Blood BLOOD SPECIMEN / Unknown Venipuncture / Unknown 04/26/2024 10:30 AM CDT 04/26/2024 10:34 AM CDT Mike Gill MD LAB - BLOOD ORDERABL ES LABORATORY [facility] [address] [place] [address], [facility] [phone] * (ABNORMAL) Comprehensive metabolic panel (04/26/2024 10:30 AM CDT) Sodium 134(L) 135 - 145 mmol/L 04/26/2024 11:00 AM T LABORATORY Potassium 3.7 3.4 - 5.3 mmol/L 04/26/2024 11:00 AM [facility] Carbon Dioxide (CO2) 32(H) 22 - 29 mmol/L 04/26/2024 11:00 AM [facility] Anion Gap 11 7 - 15 mmol/L 04/26/2024 11:00 AM [facility] Urea Nitrogen 10.9 8.0 - 23.0 mg/dL 04/26/2024 11:00 AM [facility] Creatinine 0.69 0.51 - 0.95 mg/dL 04/26/2024 11:00 AM [facility] GFR Estimate >90 >60 mL/min/1. 73m2 04/26/2024 11:00 AM [facility] Comment:eGFR calculated usin g 2020 CKD-EPI equation. Calcium 10.0 8.8 - 10.2 mg/dL 04/26/2024 11:00 AM [facility] Chloride 91(L) 98 - 107 mmol/L 04/26/2024 11:00 AM [facility] Glucose 169(H) 70 - 99 mg/dL 04/26/2024 11:00 AM T LABORATORY Alkaline Phosphatase 78 40 - 150 U/L 04/26/2024 11:00 AM [facility] AST 32 0 - 45 U/L 04/26/2024 11:00 AM [facility] Comment:Reference intervals for this test were updated on 04/05/2023 to more accurately reflect our healthy population. There may be differences in the flagging of prior results with similar values performed with this method. Interpretation of those prior results can be made in the context of the updated reference intervals. ALT 30 0 - 50 U/L 04/26/2024 11:00 AM CDT [facility] LAB[facility]ATORY Comment:Reference intervals for this test were updated on 04/05/2023 to more accurately reflect our healthy population. There may be differences in the flagging of prior results with similar values performed with this method. Interpretation of those prior results can be made in the context of the updated reference intervals. Protein Total 7.8 6.4 - 8.3 g/dL 04/26/2024 11:00 AM CDT [facility] LAB[facility]AT[facility] Albumin 4.8 3.5 - 5.2 g/dL 04/26/2024 11:00 AM CDT LABORATORY Bilirubin Total 0.8 <=1.2 mg/dL 04/26/2024 11:00 AM CDT LABORATORY Blood BLOOD SPECIMEN / Unknown Venipuncture / Unknown 04/26/2024 10:30 AM CDT 04/26/2024 10:34 AM CDT Connor Mast MD LAB - BLOOD ORDERABL ES LABORATORY [facility] [address] [place] [address] [phone] from Last 3 Months or Most Recently Relevant to Health Maintenance Advance Directives For more information, please contact: [phone] * Full Code (Latest Code Status on File) Date Activated Date Inactivated Comments 04/26/2024 2:32 PM 04/29/2024 4:03 PM All basic and advanced life-sustaining interventions are performed as appropriate Question Answer Comments Code status determined by: Discussion with patie nt/ legal decision maker * Full Code Date Activated Date Inactivated Comments 09/16/2021 11:25 AM 09/20/2021 5:39 PM All basic and advanced life-sustaining interventions are performed as appropriate Question Answer Comments Code status determined by: Unable to dis cuss and no AD/POLST on file; continue PREVIOUSLY ORDERED code status Care Teams Project Account Manager Relationship Specialty Start Date End Date Arnoldo Mejia MD [address] [place] [address] PCP - General 08/26/21
--- OUTSIDE RECORDS SUMMARY | 2024-05-09 12:07 | XMS_ITS | Referral Summary ---
Author Organization [facility] Address [address] [place] [address] Care Team Providers Care Cylinder Inspector Name Role Phone Arnoldo Mejia MD Primary Care Provider [phone] Encounters Date Type Department Care Team Description 04/26/2024 10:10 AM CDT - 04/29/2024 1:58 PM CDT Hospital Encounter [facility] [address] [place] [address] Connor Mast MD Schotl, Brent, MD Imholte, Philip B, MD Pneumonia due to infectious organism, unspecified laterality, unspecified part of lung; Sepsis with encephalopathy without septic shock, due to unspecified organism (H) Discharge Disposition: Home or Self Care 04/26/2024 Travel from Last 3 Months Allergies Active Allergy Reactions Criticality Noted Date Comments Alendronate Other (See Comments) 12/12/2021 Tooth problem - possible osteonecrosis Blood-Group Specific Substance Other (See Comments) Low 02/26/2019 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 Blood products may be delayed. Draw patient 24 hours prior to transfusion. Draw one red top and two purple top tubes for all type and screen orders. Patient has an anti-[place] antibody. Blood products may be delayed. Draw patient 24 hours prior to transfusion. For [facility] testing, draw one red top and two purple top tubes for all Type and Screen orders. Cefazolin Anaphylaxis High 07/23/2016 Tolerates cephalexin Ibuprofen Other (See Comments),Unknown Medium 07/22/2009 6 unit upper GI bleed. Oxycodone-Acetaminop hen Visual Disturbance Low 05/09/2009 Oxycodone-Acetaminop hen Low 08/18/2021 Hallucination, tolerates [place] and plain APAP Salicylates Other (See Comments),Unknown Low 03/08/2009 Contraindicated Medications Medication Sig Dispensed Refills Start Date End Date Status allopurinol (ZYLOPRIM) 300 MG tablet Take 300 mg by mouth daily Active calcium-vitamin D (OSCAL) 250-125 MG-UNIT TABS per tablet Take 1 tablet by mouth 2 times daily Active escitalopram (LEXAPRO) 20 MG tablet Take 20 mg by mouth daily Active [place]-3 Fatty Acids (FISH OIL) 600 MG CAPS [...] / No eCancel)) nystatin-triamcin olone (MYCOLOG II) 231934-0.1 UNIT/GM-% external cream Apply topically 4 times [...] 04/08/21. The antibody is directed against the [place] antigen. It is not difficult to screen for and fully crossmatch [place] negative RBCs (about 93% of donor population) but this will add 1-2 hours to provision of antigen negative fully crossmatched RBC units. Pedro Plata MD, 04/08/2021 10:44 AM Iron deficiency 02/12/2021 Nephrolithiasis 04/03/2019 Ascending aorta dilatation (H24) 04/08/2018 CAD in [place] artery 10/15/2016 Osteopenia 07/03/2016 Type 2 diabetes mellitus without complication Lumbar spinal stenosis 02/11/2015 Anxiety state 10/22/2009 Dyslipidemia 07/16/2009 HTN (hypertension) 07/16/2009 Hypothyroidism 07/16/2009 Compression fx, lumbar spine 01/23/2009 Depressive disorder 02/22/2007 Restless legs syndrome (RLS) 02/22/2007 Immunizations Name Administration Dates Next Due Hepatitis [...] 04/26/2024 10:15 AM CDT Plan of Treatment Not on file Medical Devices Implanted Type Area Asphalt Spreader Operator Device Identifier Shelf Expiration Date Model / Serial / Lot Imp [place] Hole Eliminator Hip Depuy Duraloc 1246-03-000 - [id number] Implanted:Qty : 1 on 09/16/2021 by Ehsan Dumont MD at [facility] Metallic Hardware/An chor Right: Hip [employer] [id number] 03/24/2031 [id number] / / [id number] Imp Scr Bone Can Aram 6.5x30mm 1217-30-500 - [id number] Implanted:Qty : 1 on 09/16/2021 by Ehsan Dumont MD at [facility] Metallic Hardware/An chor Right: Hip [employer] [id number] 05/24/2031 [id number] / / [id number] Imp Scr Bone Can Aram 6.5x25mm 1217-25-500 - [id number] Implanted:Qty : 1 on 09/16/2021 by Ehsan Dumont MD at [facility] Metallic Hardware/An chor Right: Hip [employer] [id number] 11/24/2030 [id number] / / [id number] Shell [place] W/ Gription 52mm - [id number] Implanted:Qty : 1 on 09/16/2021 by Ehsan Dumont MD at [facility] Total Joint Component/I nsert Right: Hip [employer] 07/24/2031 1217-32-052 / / [id number] Liner Acetabular Altrx +4 Neut [id number] - [id number] Implanted:Qty : 1 on 09/16/2021 by Ehsan Dumont MD at [facility] Total Joint Component/I nsert Right: Hip [employer] [id number] 07/24/2026 1221-36-452 / / [id number] Imp Head Femoral Depuy Ceramic 36mm +8mm 1365-36-330 - [id number] Implanted:Qty : 1 on 09/16/2021 by Ehsan Dumont MD at [facility] Total Joint Component/I nsert Right: Hip [employer] [id number] 04/23/2026 [id number] / / [id number] Imp Stem Fem Depuy Actis Std Collar Tpr Sz 6mm 1010-11-060 - [id number] Implanted:Qty : 1 on 09/16/2021 by Ehsan Dumont MD at [facility] Total Joint Component/I nsert Right: Hip [employer] [id number] 08/24/2031 [id number] / / [id number] Procedures Procedure Name Priority Date/Time Associated Diagnosis [...] BILATERAL W/ CORY Routine 11/17/2022 10:37 AM SHANK ARCHER from Last 3 Months or Most Recently Relevant to Health Maintenance Results * (ABNORMAL) Glucose by meter (04/29/2024 11:15 AM CDT) Only the most recent of11 resultswithin the time period is included. [facility] GLUCOSE BY METER POCT 137(H) 70 - 99 mg/dL 04/29/2024 11:22 AM CDT [facility] LABORATORY Blood, Capillary BLOOD SPECIMEN / Unknown 04/29/2024 11:15 AM CDT 04/29/2024 11:22 AM CDT Chris Ford MD LAB - BEAKER POCT LABORATORY [facility] [address] [place] [address], [facility] [phone] * Extra Serum Separator Tube (SST) (04/29/2024 5:27 AM CDT) Hold Specimen [facility] 04/29/2024 6:46 AM CDT LABORATORY Blood STRUCTURE OF RIGHT UPPER LIMB / Unknown Venipuncture / Unknown 04/29/2024 5:27 AM CDT 04/29/2024 5:42 AM CDT Chris Ford MD LAB - BLOOD ORDERABL ES Performing Organization Address [facility] Care [facility]/ZIP Co de Phone Number LABORATORY [facility] [address] [place] [address], [facility] [phone] * Extra Blue Top Tube (04/29/2024 5:27 AM CDT) Only the most recent of2 resultswithin the time period is included. Hold Specimen [facility] 04/29/2024 6:46 AM CDT LABORATORY Blood STRUCTURE OF RIGHT UPPER LIMB / Unknown Venipuncture / Unknown 04/29/2024 5:27 AM CDT 04/29/2024 5:43 AM CDT Chris Ford MD LAB - BLOOD ORDERABL ES LABORATORY [facility] [address] [place] [address], [facility] [phone] * Procalcitonin (04/29/2024 5:27 AM CDT) Only the most recent of3 resultswithin the time period is included. Procalcitonin 0.40 <0.50 ng/mL 04/29/2024 6:26 AM [...] See Procalcitonin Guidance document for more details. [email or web address] Factors that may affect PCT levels (not [...] MD LAB - BLOOD ORDERABL ES LABORATORY [facility] [address] [place] [address], [facility] [phone] * (ABNORMAL) Basic metabolic panel (04/29/2024 5:27 AM CDT) Only the most recent of3 resultswithin the time period is included. [facility] Sodium 136 135 - 145 mmol/L 04/29/2024 6:21 AM CDT LABORATORY Potassium 3.8 3.4 - 5.3 mmol/L 04/29/2024 6:21 AM T LABORATORY Chloride 96(L) 98 - 107 mmol/L 04/29/2024 6:21 AM [facility] LABORATORY Carbon Dioxide (CO2) 33(H) 22 - 29 mmol/L 04/29/2024 6:21 AM [facility] LAB[facility]ATORY Anion Gap 7 7 - 15 mmol/L 04/29/2024 6:21 AM [facility] LAB[facility] Urea Nitrogen 17.9 8.0 - 23.0 mg/dL 04/29/2024 6:21 AM T LABORATORY Creatinine 0.77 0.51 - 0.95 mg/dL 04/29/2024 6:21 AM T LABORATORY GFR Estimate 83 >60 mL/min/1.7 3m2 04/29/2024 6:21 AM [facility] LABORATORY Comment:eGFR calculated 2020 CKD-EPI equation. Calcium 9.1 8.8 - 10.2 mg/dL 04/29/2024 6:21 AM [facility] LABORATORY Glucose 134(H) 70 - 99 mg/dL 04/29/2024 6:21 AM [facility] LABORATORY Blood STRUCTURE OF RIGHT UPPER LIMB / Unknown Venipuncture / Unknown 04/29/2024 5:27 AM CDT 04/29/2024 5:43 AM CDT Chris Ford MD LAB - BLOOD ORDERABL ES LABORATORY [facility] [address] [place] [address], [facility] [phone] * (ABNORMAL) CBC with platelets (04/29/2024 5:27 AM CDT) Only the most recent of3 resultswithin the time period is included. [facility] WBC Count 6.0 4.0 - 11.0 10e3/uL [...] MD LAB - BLOOD ORDERABL ES LABORATORY [facility] [address] [place] [address], [facility] [phone] * Legionella Urinary Antigen and Streptococcus pneumoniae antigen (04/27/2024 9:33 AM CDT) [facility] Legionella pneumophila serogroup 1 urinary antigen Negative [...] AM CDT 04/27/2024 11:06 AM CDT Narrative [facility] - 04/28/2024 3:22 PM CDT The result of this test as well as culture, serology, or other antigen detection methods should be used in conjunction with clinical findings to make an accurate diagnosis. Chris Ford MD LAB - MICRO GENERAL ORDERABLES [facility]ORATORY [facility] Inf. Diseases Diag. Lab [address] [facility] [place] [address] * XR Chest 2 Views (04/27/2024 7:03 [...] Atrial Rate 102 BPM RADIOLOG Y RESULTS DC Interval 190 ms RADIOLOG Y RESULTS QRS Duration 106 ms RADIOLO GY RESULTS QT 386 ms RADIOLOGY RESULTS QTc 503 ms RADIOLOGY RESULTS P [place] 33 degrees RADIOLOGY RESULTS R AXIS 17 degrees RADIOLOGY RESULTS T [place] 42 degrees RADIOLOGY RESULTS Interpretation ECG wandering baseline limits interpretation supraventricular rhythm. No previous ECGs available Confirmed by MD MANFRED, [facility] ([id number]) on 04/28/2024 10:10:35 AM RADIOLOGY RESULTS 04/26/2024 [...] MD LAB - BLOOD ORDERABL ES LABORATORY [facility] [address] [place] [address], [facility] [phone] * (ABNORMAL) UA with Microscopic reflex to [...] mg/dL 04/26/2024 11:18 AM CDT LABORATORY Specific [place] Urine 1.012 1.000 - 1.030 04/26/2024 11:18 [...] Urine 1 <=5 /HPF 04/26/2024 11:18 AM T LABORATORY Urine URINE SPECIMEN FROM URINARY CONDUIT / Unknown Non-blood Collection / Unknown 04/26/2024 11:09 AM CDT 04/26/2024 11:13 AM CDT Narrative LABORATORY - 04/26/2024 11:18 AM CDT Urine Culture not indicated Connor Mast MD LAB - URINE ORDERABL ES LABORATORY [facility] [address] [place] [address], [facility] [phone] * XR Chest Port 1 View (04/26/2024 [...] effusion. NIRMAL SHANNON MD Connor Mast MD G DIAGNOSTIC IMAGI NG ORDERABLES * (ABNORMAL) Blood [...] Mast MD LAB - BLOOD ORDERABL ES Performing Organization Address City/[facility] Care [facility]/ZIP Co de Phone Number [facility] [place] [address], [facility] [phone] * Blood Culture Peripheral Blood (04/26/2024 10:46 AM CDT) Only the most recent of2 resultswithin the time period is included. Pathologist [facility] Culture No Growth 05/01/2024 11:01 AM CDT LABORATORY Blood BLOOD SPECIMEN / Unknown Venipuncture / Unknown 04/26/2024 10:46 AM CDT 04/26/2024 10:57 AM CDT Connor Mast MD LAB - MICRO GENERAL ORDERABLES [facility] [address] [address], [facility] [phone] * Symptomatic Influenza A/B, RSV, & SARS-CoV2 [...] the Xpert Xpress CoV2/Flu/RSV Assay on the [employer] GeneXpert Instrument. This test should be ordered [...] management. This test was validated by the [facility]. These laboratories are certified under the Clinical Laboratory Improvement Amendments of 1988 (CLIA-88) as qualified to perform high complexity laboratory testing. Connor Mast MD LAB - MICRO GENERAL ORDERABLES LABORATORY [facility] [address] [place] [address], [facility] [phone] * MRSA/MSSA PCR (04/26/2024 10:37 AM CDT) [...] SA Nasal Complete assay performed in the GeneTalkSession?? Dx System is a qualitative in vitro [...] does not preclude MRSA/SA nasal colonization. Connor Mast MD LAB - MICRO GENERAL ORDERABLES [facility] LABORATORY [facility] Inf. Diseases Diag. Lab [address] [facility] [place] [address], [facility] * Extra Red Top Tube (04/26/2024 10:32 AM CDT) Hold Specimen [facility] 04/26/2024 11:47 AM CDT LABORATORY Blood BLOOD SPECIMEN / Unknown Venipuncture / Unknown 04/26/2024 10:32 AM CDT 04/26/2024 10:34 AM CDT Connor Mast MD LAB - BLOOD ORDERABL ES LABORATORY [facility] [address] [place] [address], [facility] [phone] * TSH with free T4 reflex (04/26/2024 10:32 AM CDT) TSH 2.17 0.30 - 4.20 uIU/mL 04/26/2024 1:49 PM CDT LABORATORY Blood BLOOD SPECIMEN / Unknown Venipuncture / Unknown 04/26/2024 10:32 AM CDT 04/26/2024 10:34 AM CDT Mike Gill MD LAB - BLOOD ORDERABL ES Performing Organization Address City/[facility]/ZIP Co de Phone Number LABORATORY [facility] [address] [facility] [place] [address], [facility] [phone] * (ABNORMAL) Lactic Acid Whole Blood with 1X Repeat in 2 HR when >2 (04/26/2024 10:30 AM CDT) Lactic Acid, Initial 2.5(H) 0.7 - 2.0 mmol/L 04/26/2024 10:39 AM CDT LABORATORY Blood BLOOD SPECIMEN / Unknown Venipuncture / Unknown 04/26/2024 10:30 AM CDT 04/26/2024 10:34 AM CDT Connor Mast MD LAB - BLOOD ORDERABL ES Performing Organization Address City/[facility]/ZIP Co de Phone Number LABORATORY [facility] [address] [place] [address], [facility] [phone] * (ABNORMAL) CBC with platelets and differential (04/26/2024 10:30 AM CDT) WBC Count 11.8(H) 4.0 - 11.0 10e3/uL 04/26/2024 10:39 AM CDT LABORATORY RBC Count 4.46 3.80 - 5.20 10e6/uL 04/26/2024 10:39 AM CDT LABORATORY Hemoglobin 14.2 11.7 - 15.7 g/dL 04/26/2024 10:39 AM CDT LABORATORY Hematocrit 42.6 35.0 - 47.0 % 04/26/2024 10:39 AM CDT LABORATORY MCV 96 78 - 100 fL 04/26/2024 10:39 AM CDT LABORATORY MCH 31.8 26.5 - 33.0 pg [...] MD LAB - BLOOD ORDERABL ES LABORATORY [facility] [address] [facility] [address], [facility] [phone] * NT pro BNP (04/26/2024 10:30 AM [...] Mast MD LAB - BLOOD ORDERABL ES Performing Organization Address [facility] Co de Phone Number LABORATORY [facility] [address] [place] [address] [place] [address], [facility] [phone] * Hemoglobin A1c (04/26/2024 10:30 AM CDT) Hemoglobin A1C 6.2 4.0 - 6.2 % 04/26/2024 1:31 PM CDT LABORATORY Blood BLOOD SPECIMEN / Unknown Venipuncture / Unknown 04/26/2024 10:30 AM CDT 04/26/2024 10:34 AM CDT Mike Gill MD LAB - BLOOD ORDERABL ES LABORATORY [facility] [address] [facility] [address], [facility] [phone] * (ABNORMAL) Comprehensive metabolic panel (04/26/2024 10:[address] [facility]) Sodium 134(L) 135 - 145 mmol/L 04/26/2024 11:00 AM [facility] LABORATORY Potassium 3.7 3.4 - 5.3 mmol/L 04/26/2024 11:00 AM [facility] LABORATORY Carbon Dioxide (CO2) 32(H) 22 - 29 mmol/L 04/26/2024 11:00 AM [facility] LAB[facility]ATORY Anion Gap 11 7 - 15 mmol/L 04/26/2024 11:00 AM [facility] LAB[facility]ORY Urea Nitrogen 10.9 8.0 - 23.0 mg/dL 04/26/2024 11:00 AM [facility] LAB[facility]ATORY Creatinine 0.69 0.51 - 0.95 mg/dL 04/26/2024 11:00 AM [facility] LABORATORY GFR Estimate >90 >60 mL/min/1. 73m2 04/26/2024 11:00 AM [facility] LAB[facility]ATORY Comment:eGFR calculated usin 2020 CKD-EPI equation. Calcium 10.0 8.8 - 10.2 mg/dL 04/26/2024 11:00 AM [facility] LABORATORY Chloride 91(L) 98 - 107 mmol/L 04/26/2024 11:00 AM [facility] LAB[facility]ATORY Glucose 169(H) 70 - 99 mg/dL 04/26/2024 11:00 AM [facility] LABORATORY Alkaline Phosphatase 78 40 - 150 U/L 04/26/2024 11:00 AM [facility] LABORATORY AST 32 0 - 45 U/L 04/26/2024 11:00 AM [facility] LAB[facility]ATORY Comment:Reference intervals for this test were updated on 04/05/2023 to more accurately reflect our healthy population. There may be differences in the flagging of prior results with similar values performed with this method. Interpretation of those prior results can be made in the context of the updated reference intervals. ALT 30 0 - 50 U/L 04/26/2024 11:00 AM [facility] LABORATORY Comment:Reference intervals for this test were updated on 04/05/2023 to more accurately reflect our healthy population. There may be differences in the flagging of prior results with similar values performed with this method. Interpretation of those prior results can be made in the context of the updated reference intervals. Protein Total 7.8 6.4 - 8.3 g/dL 04/26/2024 11:00 AM CDT LABORATORY Albumin 4.8 3.5 - 5.2 g/dL 04/26/2024 11:00 AM CDT LABORATORY Bilirubin Total 0.8 <=1.2 mg/dL 04/26/2024 11:00 AM CDT LABORATORY Blood BLOOD SPECIMEN / Unknown Venipuncture / Unknown 04/26/2024 10:30 AM CDT 04/26/2024 10:34 AM CDT Connor Mast MD LAB - BLOOD ORDERABL ES LABORATORY [facility] Laboratory [address] [place] [address], [facility] [phone] from Last 3 Months or Most Recently Relevant to Health Maintenance Advance Directives For more information, please contact: [phone] * Full Code (Latest Code Status on File) Date Activated Date Inactivated Comments 04/26/2024 2:32 PM 04/29/2024 4:03 PM All basic and advanced life-sustaining interventions are performed as appropriate Question Answer Comments Code status determined by: Discussion with manda danielle/ legal decision maker * Full Code Date Activated Date Inactivated Comments 09/16/2021 11:25 AM 09/20/2021 5:39 PM All basic and advanced life-sustaining interventions are performed as appropriate Question Answer Comments Code status determined by: Unable to dis cuss and no AD/POLST on file; continue PREVIOUSLY ORDERED code status Care Teams Cylinder Inspector Relationship Specialty Start Date End Date Arnoldo Mejia MD [address] [place] [address] PCP - General 08/26/21
--- OUTSIDE RECORDS SUMMARY | 2024-05-09 12:07 | XMS_ITS | Clinical Summary ---
Author Organization [facility] Address [place], [place] [address] Care Team Providers Care Nude Model Name Role Phone Jax Bradford DPM Unavailable [phone] Arnoldo Mejia MD Primary Care Provider [phone] Allergies Active Allergy Reactions Criticality Noted Date Comments Cefazolin Anaphylaxis High 07/23/2016 Tolerates cephalexin Blood-Group Specific Substance Other - Describe In Comment Field 11/06/2021 Patient has an anti-Tiara (antibody). Blood products may be delayed. Draw patient 24 hours prior to transfusion. For [facility] testing, draw one red top and two purple top tubes for all Type and Screen orders. Alendronate Other - Describe In Comment Field 12/12/2021 Tooth problem - possible osteonecrosis Ibuprofen Bleeding 07/22/2009 6 unit upper GI bleed. Oxycodone-Acetamino phen Hallucinations 05/09/2009 Salicylates *Unknown,Other - Describe In Comment Field,*Unknown - Follow up needed 03/08/2009 Contraindicated Contraindicated Unlisted Allergen (Include Detail In Comments) *Unknown 08/18/2021 Medications Medication Sig Dispensed Refills Start Date End Date Status multivitamin (MVI) tablet Take 1 Tablet by mouth once daily. Active TENS unit and electrodes cmpkIndications:C hronic pain syndrome As directed. 1 Each 07/26/2020 Active vitamin E acid succinate (vitamin E succinate) 400 unit tab Take 400 units by mouth once daily. Active cholecalciferol (VITAMIN D3) 1,000 unit tablet Take 25 mcg by mouth once daily. Active calcium carbonate-vitamin D 250-125 mg-unit tab Take 1 Tablet by mouth 2 times daily. Active cinnamon bark, bulk, powd Mix 500 mg in liquid then take by mouth once daily. Active aspirin 81 mg cap Take by mouth. 0 12/11/2021 Act dari nebulizer accessories kitIndications:Ac yesenia non-recurrent maxillary sinusitis For home use. Length of need: prn going forward 1 Kit 01/06/2022 Active CPAPIndications:O SA (obstructive sleep apnea) CPAP machine for home use at pressure 4-10 cm/H2O, full face mask x1/3month with a full face cushion x1/mo 1 Each 11 03/24/2022 Active blood-glucose meterIndications: Type 2 diabetes mellitus without complication, without long-term current use of insulin (HC) Dispense meter covered by pt ins. E11.9 NIDDM type II - Test 1 time/day 1 Each 01/29/2023 Active nystatin (MYCOSTATIN) 100,000 unit/gram topical creamIndications: Intertrigo Apply topically to affected area(s) two times daily. To yeast rash. 30 g 2 10/08/2023 Active Narcan 4 mg/actuation nasal sprayIndications: Chronic, continuous use of opioids 1 spray (4 mg) intranasally into 1 nostril. Administer into alternating nostrils. additional doses of NARCAN Nasal [place] may be given every 2 to 3 minutes until emergency medical assistance arrives 1 Each 10/20/2023 Active gabapentin (NEURONTIN) 600 mg tabletIndications :Restless legs syndrome (RLS) Take 2 Tablets (1,200 mg) by mouth three times daily. 540 Tablet 3 02/23/2024 Active methocarbamoL (Robaxin-750) 750 mg tabletIndications :Myofascial pain Take 1 tablet 3x a days as needed for muscle spasm 90 Tablet 3 02/23/2024 Active benzonatate (TESSALON) 200 mg capsuleIndication s:Cough, unspecified type Take 1 Capsule (200 mg) by mouth 3 times daily if needed for Cough. 21 Capsule 03/02/2024 Active allopurinoL (ZYLOPRIM) 300 mg tabletIndications :Gout, unspecified cause, unspecified chronicity, unspecified site Take 1 Tablet (300 mg) by mouth once daily. 90 Tablet 3 03/04/2024 Active atorvastatin (LIPITOR) 20 mg tabletIndications :Dyslipidemia Take 1 Tablet (20 mg) by mouth at bedtime. 90 Tablet 3 03/04/2024 Active blood sugar diagnostic (Accu-Chek Lisa Plus test strp) stripIndications: Type 2 diabetes mellitus without complication, without long-term current use of insulin (HC) Dispense item covered by pt ins. E11.9 NIDDM type II - Test 1 time/day 100 Each 3 03/04/2024 Active buPROPion (WELLBUTRIN SR) 150 mg Sustained-Release tabletIndications :Depressive disorder Take 1 Tablet (150 mg) by mouth two times daily. 180 Tablet 2 03/04/2024 Active escitalopram oxalate (LEXAPRO) 20 mg tabletIndications :Dysthymia Take 1 Tablet (20 mg) by mouth every morning. 90 Tablet 2 03/04/2024 Active ferrous sulfate, 65 mg elemental, (FeroSuL) tabletIndications :Iron deficiency anemia, unspecified iron deficiency anemia type Take 1 Tablet (325 mg) by mouth once daily with a meal. 90 Tablet 3 03/04/2024 Active losartan (COZAAR) 25 mg tabletIndications :HTN (hypertension) Take 1 Tablet (25 mg) by mouth once daily. 90 Tablet 3 03/04/2024 Active metFORMIN (GLUCOPHAGE) 1,000 mg tabletIndications :Type 2 diabetes mellitus without complication, unspecified whether cuff turner insulin use (HC) Take 1 Tablet (1,000 mg) by mouth two times daily with meals. 180 Tablet 03/04/2024 Active omeprazole (PRILOSEC) 20 mg Delayed-Release capsuleIndication s:Gastroesophagea l reflux disease, unspecified whether esophagitis present Take 1 Capsule (20 mg) by mouth once daily before a meal. 90 Capsule 3 03/04/2024 Active pramipexole (MIRAPEX) 0.125 mg tabletIndications :Restless leg syndrome Take 2 Tablets (0.25 mg) by mouth at bedtime. 180 Tablet 2 03/04/2024 Active triamterene-hydro chlorothiazide, 37.5-25 mg, (MAXZIDE-25) 37.5-25 mg tabletIndications :HTN (hypertension) Take 1 Tablet by mouth every morning. 90 Tablet 4 03/04/2024 Active blood-glucose meterIndications: Type 2 diabetes mellitus without complication, without long-term current use of insulin (HC) Check 1-2 times per day 1 Each 03/06/2024 Active albuterol HFA (PRO-AIR; VENTOLIN; PROVENTIL) 90 mcg/actuation inhalerIndication s:Bronchiolitis Inhale 1-2 Puffs by mouth every 4 hours if needed for Shortness Of Breath or Wheezing. 1 Each 3 03/07/2024 Active furosemide (LASIX) 40 mg tabletIndications :Rhonchi at both lung bases Take 1 Tablet (40 mg) by mouth once daily in the morning. 7 Tablet 03/10/2024 Active fentaNYL (DURAGESIC) 25 mcg/hr transdermal patchIndications: Chronic pain syndrome Apply 1 Patch on dry, clean, hairless skin every 72 hours. Use dates: 04/18/2024-2023 10 Patch 04/15/2024 Active HYDROcodone-aceta minophen (10-325 mg/tablet)Indicat ions:Chronic pain syndrome,Lumbar degenerative disc disease,Neck pain, chronic,Controlle d substance agreement signed Take 1 tablet Every 4 hours PRN PAIN (MAX OF 6 TABS/DAY) use dates: 04/21/2024-2023 180 Tablet 04/18/2024 Active naloxone (Narcan) 4 mg/actuation nasal sprayIndications: Chronic pain syndrome Inhale 1 Earleton into affected nostril(s) each time if needed for Patient Diff To Arouse or Resp Rate < 8 / min. Additional doses may be given every 2 to 3 minutes until emergency medical assistance arrives. 2 Each 04/14/2024 Active fentaNYL (DURAGESIC) 25 mcg/hr transdermal patchIndications: Chronic pain syndrome Apply 1 Patch on dry, clean, hairless skin every 72 hours. Use dates: 03/19/24-04/17/20 24 10 Patch 03/16/2024 4 Discontinue d(Reorder (E-cancel not sent)) HYDROcodone-aceta minophen (10-325 mg/tablet)Indicat ions:Chronic pain syndrome,Lumbar degenerative disc disease,Neck pain, chronic,Controlle d substance agreement signed Take 1 tablet Every 4 hours PRN PAIN (MAX OF 6 TABS/DAY) use dates: 03/22/2024-2023 (54 of 180 remaindered) 54 Tablet 03/22/2024 4 Discontinue d(Reorder (E-cancel not sent)) levoFLOXacin (LEVAQUIN) 750 mg tablet Take 750 mg by mouth. 04/29/2024 4 Active Problems Problem Noted Date Diagnosed Date Controlled substance agreement signed 05/26/2023 Overview: Jeff Painter .................... 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 04/13/2022 02/18/2023 S/P TAVR (transcatheter aortic valve replacement ) 01/09/2022 CARA 02/24/2021 AHI- 26, no REM FFM standard 12/11 Closed fracture of lateral portion of right tibi al plateau 11/28/2021 S/P total hip arthroplasty 09/16/2021 Hip pain 08/29/2021 Controlled substance agreement signed 05/20/2021 Overview: David Varner MD [facility] Merna Yu CMA....05/20/2021 3:21 PM Open displaced comminuted nur pracondylar fracture without intercondylar fracture of right humerus 04/08/2021 Iron deficiency 02/12/2021 Controlled substance agreement signed 05/22/2020 Overview: David Varner MD [facility] [place] Merna Yu CMA....05/21/2020 10:46 AM Nephrolithiasis 04/03/2019 Polymicrobial sepsis 02/23/2019 Pyelonephritis 02/23/2019 Polyarthralgia 02/22/2019 Ascending aorta dilatation 04/08/2018 CAD in tribal artery 10/15/2016 Osteopenia 07/03/2016 Type 2 diabetes mellitus without complication Lumbar spinal stenosis at L4-5 and L1-2 02/12/20 15 Anxiety state, unspecified 10/22/2009 Hypothyroidism 07/16/2009 Dyslipidemia 07/16/2009 HTN (hypertension) 07/16/2009 Compression fx, lumbar spine 01/23/2009 Restless legs syndrome (RLS) 02/22/2007 Depressive disorder, not elsewhere classified Chronic, continuous use of opioids Family history of colon cancer Tibial plateau fracture, rig ht, closed, with routine healing, subsequent encounter Resolved Problems Problem Noted Date Diagnosed Date Resolved Date Controlled substance agreement signed 03/25/2022 10/29/2022 Severe aortic stenosis 08/29/202110/29 Hypoxia 04/11/2019 10/31/2019 Hypoxia 03/09/2019 10/31/2019 Hypoventilation associated w ith obesity syndrome 03/02/2019 12/12/2021 Allergy to cephalosporin 02/24/201904/2020 Proteus mirabilis infection 02/24/2019 10/31/2019 Drug resistance 02/24/2019 10/31/2019 Antibiotic-resistant bacterial infection 02/24/2019 10/31/2019 Carbapenem-resistant Enterob acteriaceae infection 02/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 Varner 05/27/18 90 day reminder signed. Dona Benson CMA...........05/27/2018 1:07 PM Controlled substance agreement signed 05/27/2018 07/08/2018 Overview: David Varner MD [facility] Merna Yu CMA....05/27/2018 3:11 PM Aortic valve stenosis 04/08/20182021 Overview: Moderate on echo 04/2018 - repeat 1-2 years Controlled substance agreement signed 07/23/2017 05/27/2018 Overview: Telly Hernandez ,[facility],[place] Merna [place] MUÑIZ....07/23/2017 1:30 PM Probable bicuspice aortic va lve stenosis (tte 10/09/16) 10/11/2016 09/20/2018 Overview: Needs an echocardiogram every 2 to 3 years, or sooner should she have symptoms suggestive of symptomatic aortic valve stenosis Demand ischemia 10/09/2016 10/15/2016 Pneumonia of left lower lobe due to infectious organism 10/09/2016 10/15/2016 Acute respiratory failure with hypoxia 10/08/2016 10/15/2016 Elevated troponin 10/08/2016 10/09/2016 Chronic pain disorder 01/06/20162019 Lumbar spinal stenosis 10/05/201402/11 Diastasis recti 01/04/2012 02/03/2019 Osteopenia 01/04/2012 07/03/2016 Pain medication agreement si gned and scanned 09/10/10 03/26/2011 12/15/2017 Overview: Prescriber: Dr. Renato Miguel, Pain clinic referral Ok to fill at same amount/dose/frequency in my absence. Controlled substance agreement: updated and signed 06/07/15, and signed in 2009. TELEPHONE OPERATOR CHIEF query was acceptable. Last UDS on 03/2017, was appropriate. Pubic ramus fractures, s/p ORIF 03/11/2011 07/03/2016 Pelvic fracture 12/04/2010 07/16/2014 Tendonitis 02/20/2010 07/03/2016 Hair loss 10/22/2009 05/18/2016 GI bleed 07/18/2009 12/29/2010 Chronic back pain 07/16/2009 02/11/2015 Abnormal EKG 07/16/2009 02/03/2019 Anemia due to acute blood loss 07/16/2009 02/20/2010 Bleeding stomach ulcer 07/16/200912/29 Melena 07/15/2009 07/21/2012 Degeneration of lumbar or michelle mbosacral intervertebral disc 06/10/2009 10/29/2022 Lumbosacral Facet Arthropathy 06/10/2009 10/31/2019 L4-5 Disk Herniation with L5 Impingement 06/10/2009 07/03/2016 Venous Stasis Ulcer right medial malleolus 08/01/2008 05/19/2013 Venous insufficiency 06/15/2008 019 Irritable bowel syndrome 02/22/2007 Acute respiratory insufficiency 10/31/2019 Encounters Date Type Department Care Team Description 05/02/2024 7:30 AM CDT Preop Visit [facility] [address] [place] [address] Thaddeus Smith DO Preoperative Exam (LT Knee Coolief RFA - [facility] - [facility] - SHEILA 05/09/2024) 05/02/2024 Travel 04/14/2024 Refill [facility] [address] [place] [address] David Varner MD Refill Request 04/11/2024 3:00 PM CDT Procedure Only [facility] [address] [place] [address] Farooq Euceda MD Procedure (Left knee genicular nerve block ) 03/27/2024 Nurse Triage [facility] [address] [place] [address] Arnoldo Mejia MD Chest Pain/problem 03/21/2024 Telephone [facility] [address] [place] [address] David Varner MD Medication Management 03/17/2024 Telephone [facility] [address] [place] [address] David Varner MD Error-please disregard 03/17/2024 Telephone [facility] [address] [place] [address] David Varner MD Prior Authorization (Fentanyl 25 mcg patch ) 03/16/2024 Orders Only [facility] [address] [place] [address] David Varner MD <No scans attached> 03/10/2024 Telephone [facility] [address] [place] [address] Arnoldo Mejia MD Questions 03/10/2024 Telephone [facility] [address] [place] [address] David Varner MD Medication Management (Medication review ) 03/07/2024 10:05 AM CDT Office Visit [facility] [address] [place] [address] Arnoldo Mejia MD Follow Up (CT scan results) 03/06/2024 11:30 AM CDT Ancillary Procedure [address] [address] 03/06/[address] [address] Arnoldo Mejia MD Refill Request (Accuchek) 03/06/2024 Travel 03/06/[address] [address] Arnoldo Mejia MD Cough (Pneumonia, wheezy) 03/03/[address] [address] Arnoldo Mejia MD Medication Management (MEDICATION TRANSFER ISSUES) 03/01/[address] [address] Arnoldo Mejia MD Refill Request (BENZONATAPE 100 MG ) 02/29/2024 4:15 PM CDT Ancillary Procedure [address] [address] 02/29/2024 3:40 PM CDT Office Visit [address] [address] Arnoldo Mejia MD Cough (Started a week ago/A rattle ); Nose Problem (Started running this morning); Shortness Of Breath (Started a week ago) 02/29/2024 Travel 02/28/[address] [place] [address] Arnoldo Mejia MD Medication Management (Med for cough?) 02/23/2024 1:30 PM CDT Office Visit [facility] [address] [place] [address] David Varner MD Occ Med (Worker's comp) 02/23/2024 Travel 02/21/2024 8:00 AM CDT Office Visit [facility] [address] [facility] [place] [address] Farooq Euceda MD Musculoskeletal Problem (Follow up left knee pain) 02/21/2024 Travel 02/16/2024 Refill [facility] [address] [place] [address] David Varner MD Refill Request from Last 3 Months Immunizations Name Administration Dates Next Due AMB Influenza, IIV4 PF (=>6 mos Flulaval,Fluzone Fluarix)(Flu Clinic Only) 09/07/2018 COVID-19 vaccine (Moderna 100mcg/0.5mL) PF, MDV 01/17/2021,12/20/2020 COVID-19 vaccine (Pfizer-Bio NTech 30mcg/0.3mL) 12YO+ BIVALENT PF, MDV 09/28/2022 COVID-19 vaccine (Pfizer-Bio NTech 30mcg/0.3mL) 12YO+ ESME-SUCROSE PF, MDV 06/15/2022 COVID-19 vaccine (Pfizer-Bio NTech 30mcg/0.3mL) PF, MDV 10/02/2021 Hepatitis B (Adult) 01/22/1997,12/22/1996 Influenza A (H1N1), Inactivated 10/22/2009 Influenza A (H1N1), Inactiva benja (Age >=3 Years) 10/22/2009 Influenza Virus, Unspecified 09/20/2021 Influenza, High-dose Inactivated 07/21/2019 Influenza, High-dose Quadriv alent Inactivated 09/20/2021,08/21/2020 Influenza, IIV3 (Age 6-35 mos) 08/11/2015,2010 Influenza, IIV3 (Age >=3 years) 08/07/20 14,08/18/2013,07/14/2012,2010,09/22/2010,07/19/2009,09/17/2008,1 11/17/2005,08/03/2003 Influenza, IIV4 07/28/2018, 7,08/20/2015,2014 Influenza, Inactivated AIIV4 (Age 65+ Years) Preserv Free 07/15/2022 Influenza, RIV3 (Age =>18 Years) 07/03/2016 Pneumococcal Conj 20-valent (Prevnar 20) 09/28/2022 Pneumococcal Poly,23-Valent (Pneumovax) 12/01/2010 Pneumococcal conj 13-Valent (Prevnar 13) 02/03/2019 TD, UNSPECIFIED 04/08/2021,08/29/2001 Td (Age >=7 Years) 08/29/2001 Tdap 12/01/2010 Tdap, Unspecified 04/08/2021 Zoster (Shingrix-RZV, recombinant) 02/11/2023, Family History Medical History Relation Name Comments Stroke Father Heart Disease Mother AAA Diabetes Paternal Grandmother Cancer-colon Sister 7 Cancer-breast No Family History Relation Name Status Comments Brother 1 Alive Brother 2 Alive Daughter Alive Father Maternal Grandfather Mother Paternal Grandfather Paternal Grandmother Sister 1 Sister 2 Alive Sister 3 Alive Sister 4 Alive Sister 5 Alive Sister 6 Alive Sister 7 Son Alive Social History Tobacco Use Types Packs/Day Years Used Date Smoking Tobacco: Former Cigarettes 1 25 0 12/04/1965 - 12/04/1990 Smokeless Tobacco: Never Tobacco Cessation:Counseling Given: Yes Alcohol Use Standard Drinks/Week Comments No 0 (1 standard drink = 0.6 oz pur e alcohol) PHQ-2 Answer Date Recorded PHQ-2 TOTAL SCORE 0 10/29/2022 Social Connections Answer Date Recorded Frequency of Communication with Friends and Fami ly 0 02/04/2024 Financial Resource Strain Answer Date R ecorded Difficulty of Paying Living Expenses 3 02/04/2024 Difficulty of Paying Living Expenses Not on file 02/04/2024 Food Insecurity Answer Date Recorded Worried About Running Out of Food in the Last Ye ar 1 02/04/2024 Transportation Needs Answer Date Record ed Lack of Transportation (Medical) 1 02/04/2024 Housing Stability Answer Date Recorded Unable to Pay for Housing in the Last Year 1 02/04/2024 Sex and Gender Information Value Date Recorded Sex Assigned at Female 02/28/2024 4:34 PM CDT Gender Identity Female 02/28/2024 4:34 PM CDT Sexual Orientation Not on file Obstetrics History Para Term AB IAB SAB Ectopic Multiple Livin g Live Births 2 2 2 2 2 Date Outcome GA Total Labor Labor/2nd/3rd Weight Sex Type Anes PTL Valerie A1 A5 Name Clin Term CS-LT ranv Living Term CS-LT ranv Living Last Filed Vital Signs Vital Sign Reading Time Taken Comments Blood Pressure 147/77 05/02/2024 7:44 AM CDT rec heck Pulse 88 05/02/2024 7:42 AM CDT Temperature 36.7 ??C (98.1 ??F) 02/29/2024 3:42 PM CD T Respiratory Rate 12 02/23/2024 1:20 PM CDT Oxygen Saturation 95% 05/02/2024 7:42 AM CDT Inhaled Oxygen Concentration - - Weight 103.8 kg (228 lb 12.8 oz) 05/02/2024 7:42 AM CDT Height 154.9 cm (5' 1) 09/12/2023 10:5 6 PM [employer] Body Mass Index 43.23 09/12/2023 10:56 PM [employer] Plan of Treatment Upcoming Encounters Date Type Department Care Team (Late st Contact Info) Description 05/09/2024 1:00 PM CDT Procedure Only [facility] [address] [place] [address] Farooq Euceda MD [address] [place] [address] Arrived 05/22/2024 7:40 AM CDT Office Visit [facility] [address] [place] [address] Farooq Euceda MD [address] [place] [address] 05/24/2024 2:10 PM CDT Office Visit [facility] [address] [place] [address] David Varner MD [address] [place] [address] Health Maintenance Due Date Last Done Comments Colonoscopy through age 75 08/08/202308/08, 12/05/2015, 12/05/2015, Additional history exists Medicare Wellness for age 65+ 10/30/2023 10/29/2022 Depression screening for age 12+ 10/31/2023 10/31/2022, 10/31/2022, 10/29/2022, Additional history exists Mammogram for age 45-75 11/17/2023 11/17/19 23, 03/07/2021, 01/16/2019, Additional history exists BMI (ht and wt on same day) for age 18+ 03/23/2024 03/23/2023, 01/21/2023, 10/29/2022, Additional history exists COVID-19 vaccine series ( season) 2024 11/29/2023, 09/28/2022, 06/15/2022, Additional history exists Influenza for age 65+ 06/25/2024 07/15/2022 , 09/20/2021, 09/20/2021, Additional history exists Lipids for age 45-75 09/28/2027 09/28/2022, 02/04/2021, 05/26/2019, Additional history exists Tetanus booster 04/08/2031 04/08/2021, 03/25, 12/01/2010, Additional history exists Hepatitis C screening for ag e 18-79 Completed 10/31/2019 DEXA/DXA scan for age 65+ Completed 2020, 07/21/2016, 02/04/2012, Additional history exists Tdap Completed 04/08/2021, 12/01/2010 Pneumococcal series for age 65+ Completed 09/28/2022, 02/03/2019, 12/01/2010 Zoster (shingles) series for age 50+ Completed 02/11/2023, 12/14/2022 Procedures Procedure Name Priority Date/Time Associated Diagnosis Comments HEMOGLOBIN A1C Routine 05/02/2024 8:44 AM CDT Type 2 diabetes mellitus without complication, without long-term current use of insulin (HC) URINE ALBUMIN TO CREATININE RATIO, RANDOM Routine 05/02/2024 8:29 AM CDT Type 2 diabetes mellitus without complication, without long-term current use of insulin (HC) POTASSIUM Routine 05/02/2024 8:24 AM CDT Preop general physical exam NM INJECTION AA&/STRD GENICULAR NRV BRANCHES W/IMG Routine 04/11/2024 12:00 AM CDT Primary osteoarthritis of left knee Chronic pain of left knee CT CHEST WO Routine 03/06/2024 11:50 AM CDT Cough, unspecified type CBC WITH AUTO DIFFERENTIAL Routine 02/29/2024 4:15 PM CDT Cough, unspecified type BASIC METABOLIC PANEL Routine 02/29/2024 4:15 PM CDT Cough, unspecified type CBC WITH AUTO DIFFERENTIAL Routine 02/29/2024 4:15 PM CDT Cough, unspecified type XR CHEST 2 VIEWS PA AND LATERAL Routine 02/29/2024 4:08 PM CDT Cough, unspecified type XR MAMMO CORY BILAT SCREEN Routine 11/17/2022 10:37 AM [employer] Visit for screening mammogram LIPID PANEL Routine 09/28/2022 8:44 AM [employer] Dyslipidemia XR DXA BONE DENSITY 2 SITES AXIAL Routine 11/28/2020 3:07 PM [employer] Compression fracture of lumbar vertebra, unspecified lumbar vertebral level, sequela COLONOSCOPY 08/08/2020 9:10 AM CDT ANTI HCV Routine 10/31/2019 9:21 AM [employer] Anemia, unspecified type from Last 3 Months or Most Recently Relevant to Health Maintenance Results * HEMOGLOBIN A1C MONITORING (POCT) (05/02/2024 8:44 AM CDT) Pathologist [facility] HEMOGLOBIN A1C MONITORING (POCT) 6.3 <=6.4 % 05/02/2024 8:45 AM CDT [facility] Blood BLOOD SPECIMEN / Unknown Venipuncture / Unknown 05/02/2024 8:44 AM CDT 05/02/2024 8:45 AM CDT Narrative [facility] - 05/02/2024 8:45 AM CDT ? (<=6.9%) ? Indicates good control ? (7.0% to 7.9%) ? Indicates fair control ? (>=8.0%) ? Indicates poor control ?? NOTE: ??These thresholds are guidelines and ?individual targets may vary. Falsely low levels may be seen with: Recent Transfusion, Recent Significant Blood Loss, Hemolytic Diseases, or Falsely elevated levels may be seen with: Untreated Anemias, Splenectomy ? Thaddeus Smith DO CHEMISTRY [facility] [address] [place] [address], * (ABNORMAL) URINE ALBUMIN TO CREATININE RATIO, RANDOM (05/02/2024 8:29 AM CDT) Pathologist [facility] ALB RAND URINE 147.0 mg/L 05/02/2024 9:30 PM CDT [facility] CREATININE,URIN E 0.42 g/L 05/02/2024 9:30 PM CDT [facility] ALBUMIN TO CREATININE RATIO,RAND UR 350.0(H) <30.0 mg/g creat 05/02/2024 9:30 PM CDT [facility] Urine URINE SPECIMEN / Unknown Non-Blood / Unknown 05/02/2024 8:29 AM CDT 05/02/2024 8:29 AM CDT Narrative [facility] - 05/02/2024 9:30 PM CDT If Albumin to Creatinine Ratio is elevated, consider the following: ? Elevations seen with incipient nephropathy associated ?? with diabetes mellitus or hypertension. Stress, exercise,hematuria, ?? and urinary tract infection may also produce elevated results. If clinically indicated, confirm with ?24 Hour Albumin to Creatinine Ratio. ?? Thaddeus Smith DO URINE Performing Organization Address City/[facility]/ZIP Co de Phone Number [facility] [address] [place] [address], * POTASSIUM (05/02/2024 8:24 AM CDT) POTASSIUM 4.4 3.5 - 5.1 mmol/L 05/02/2024 7:22 PM CDT [facility] Blood BLOOD SPECIMEN / Unknown Venipuncture / Unknown 05/02/2024 8:24 AM CDT 05/02/2024 8:46 AM CDT Thaddeus Smith DO CHEMISTRY Performing Organization Address City/[facility]/ZIP Co de Phone Number [facility] [address] [place] [address], * NM INJECTION AA&/STRD GENICULAR NRV BRANCHES W/IMG (04/11/2024 12:00 AM CDT) Farooq Euceda MD PB - NERVOUS SYSTE M SERVICES * CT CHEST WO (03/06/2024 11:50 AM CDT) Anatomical Region Laterality Modality CHEST, THORAX, HEART Computed To mography 03/06/2024 3:53 PM CDT Narrative 03/06/2024 3:53 PM CDT For Patients: ??As a result of the 21st Century Cures Act, medical imaging exams and procedure reports are released immediately into your electronic medical record. ??You may view this report before your referring provider. ??If you have questions, please contact your health care provider. Indication: Cough, unspecified typeCough, chronic/persisting Greater Than 8 weeks, failed empiric treatment Technique: Noncontrast CT chest Please note that all CT scans at this facility use dose modulation, iterative reconstruction, and/or weight-based dosing when appropriate to reduce radiation dose to as low as reasonably achievable. Comparison: 09/17/2023 Findings: Tiny nodule within the right thyroid lobe is again noted and considered incidental. Vascular calcifications are present. No enlarged lymph nodes in the mediastinum, fercho or axilla. Cardiomegaly. Calcification in the spleen. The gallbladder is absent. Postop changes to the stomach. Fluid distention of the esophagus noted distally. Calcified granuloma is present within the left lower lobe medially. Old left- sided rib fracture deformities are present. Multilevel degenerative disc disease throughout the thoracic spine. Postprocedural changes at the thoracolumbar junction. Tiny nodular densities are present within the lateral aspect of the right upper lobe. No pleural effusion or pulmonary edema. Mosaic attenuation of the pulmonary parenchyma. Impression: Mosaic attenuation of the pulmonary parenchyma consistent with small airway disease. No pulmonary fibrosis. Old granulomatous change. No adenopathy. Cardiomegaly without pulmonary edema. Please note that all CT scans at this facility use dose modulation, iterative reconstruction, and/or weight-based dosing when appropriate to reduce radiation dose to as low as reasonably achievable. Dictated by Mark Ambrocio MD @ 03/06/2024 3:53:24 PM (Electronically Signed) Procedure Note Mark Ambrocio MD - 03/06/2024 For Patients: As a result of the Cures Act, medical imagingexams and procedure reports are released immediately into your electronicmedical record. You may view this report before your referring provider.If you have questions, please contact your health care provider. Indication: Cough, unspecified typeCough, chronic/persisting Greater Than 8 weeks,failed empiric treatment Technique: Noncontrast CT chest Please note that all CT scans at this facility use dose modulation,iterative reconstruction, and/or weight-based dosing when appropriate toreduce radiation dose to as low as reasonably achievable. Comparison: 09/17/2023 Findings: Tiny nodule within the right thyroid lobe is again noted and consideredincidental. Vascular calcifications are present. No enlarged lymph nodesin the mediastinum, fercho or axilla. Cardiomegaly. Calcification in thespleen. The gallbladder is absent. Postop changes to the stomach. Fluiddistention of the esophagus noted distally. Calcified granuloma is presentwithin the left lower lobe medially. Old left- sided rib fracturedeformities are present. Multilevel degenerative disc disease throughoutthe thoracic spine. Postprocedural changes at the thoracolumbar junction.Tiny nodular densities are present within the lateral aspect of the rightupper lobe. No pleural effusion or pulmonary edema. Mosaic attenuation ofthe pulmonary parenchyma. Impression: Mosaic attenuation of the pulmonary parenchyma consistent with smallairway disease. No pulmonary fibrosis. Old granulomatous change. No adenopathy. Cardiomegaly without pulmonary edema. Please note that all CT scans at this facility use dose modulation,iterative reconstruction, and/or weight-based dosing when appropriate toreduce radiation dose to as low as reasonably achievable. Dictated by Mark Ambrocio MD @ 03/06/2024 3:53:24 PM (Electronically Signed) Arnoldo Mejia MD CT * (ABNORMAL) CBC WITH AUTO DIFFERENTIAL (02/29/2024 4:15 PM CDT) WHITE BLOOD COUNT 7.5 4.5 - 11.0 thou/cu mm 02/29/2024 4:23 PM CDT [facility] RED BLOOD COUNT 3.99(L) 4.00 - 5.20 mil/cu mm 02/29/2024 4:23 PM CDT [facility] HEMOGLOBIN 13.0 12.0 - 16.0 g/dL 02/29/2024 4:23 PM CDT [facility] HEMATOCRIT 38.1 33.0 - 51.0 % 02/29/2024 4:23 PM CDT [facility] MCV 96 80 - 100 fL 02/29/2024 4:23 PM CDT [facility] MCH 32.6 26.0 - 34.0 pg 02/29/2024 4:23 PM CDT [facility] MCHC 34.1 32.0 - 36.0 g/dL 02/29/2024 4:23 PM CDT [facility] RDW 13.6 11.5 - 15.5 % 02/29/2024 4:23 PM CDT [facility] PLATELET COUNT 183 140 - 440 thou/cu mm 02/29/2024 4:23 PM CDT [facility] MPV 9.9 6.5 - 11.0 fL 02/29/2024 4:23 PM CDT [facility] % NEUT 63.5 % 02/29/2024 4:23 PM CDT [facility] % LYMPH 24.8 % 02/29/2024 4:23 PM CDT [facility] % MONO 9.0 % 02/29/2024 4:23 PM CDT [facility] % EOS 2.4 % 02/29/2024 4:23 PM CDT [facility] % BASO 0.3 % 02/29/2024 4:23 PM CDT [facility] ABSOLUTE NEUTROPHILS 4.8 1.7 - 7.0 thou/cu mm 02/29/2024 4:23 PM CDT [facility] ABSOLUTE LYMPHOCYTES 1.9 0.9 - 2.9 thou/cu mm 02/29/2024 4:23 PM CDT [facility] ABSOLUTE MONOCYTES 0.7 <0.9 thou/cu mm 02/29/2024 4:23 PM CDT [facility] ABSOLUTE EOSINOPHILS 0.2 <0.5 thou/cu mm 02/29/2024 4:23 PM CDT [facility] ABSOLUTE BASOPHILS 0.0 <0.3 thou/cu mm 02/29/2024 4:23 PM CDT [facility] Blood BLOOD SPECIMEN / Unknown Venipuncture / Unknown 02/29/2024 4:15 PM CDT 02/29/2024 4:20 PM CDT Arnoldo Mejia MD HEMATOLOGY [facility] [address] [place] [address], * (ABNORMAL) BASIC METABOLIC PANEL (02/29/2024 4:15 PM CDT) [facility] SODIUM 136 136 - 145 mmol/L 03/01/2024 2:39 PM CDT [facility] POTASSIUM 4.2 3.5 - 5.1 mmol/L 03/01/2024 2:39 PM CDT [facility] CHLORIDE 96(L) 98 - 107 mmol/L 03/01/2024 2:39 PM CDT [facility] CO2,TOTAL 28 22 - 29 mmol/L 03/01/2024 2:39 PM CDT [facility] ANION GAP 12 5 - 18 03/01/2024 2:39 PM CDT [facility] GLUCOSE 120(H) 70 - 99 mg/dL 03/01/2024 2:39 PM CDT [facility] CALCIUM 9.7 8.8 - 10.2 mg/dL 03/01/2024 2:39 PM CDT [facility] BUN 17 8 - 23 mg/dL 03/01/2024 2:39 PM T [facility] CREATININE 0.83 0.50 - 0.90 mg/dL 03/01/2024 2:39 PM T [facility] BUN/CREAT RATIO 20 10 - 20 2:39 PM T [facility] eGFR 76(L) >90 mL/min/1.7 3m2 03/01/2024 2:39 PM T [facility] Comment:As of 2022, eG FR is calculated by the CKD-EPI creatinine equation without race adjustment. ??eGFR can be influenced by muscle mass, exercise, and diet. ??The reported eGFR is an estimation only and is only applicable if the renal function is stable. Blood BLOOD SPECIMEN / Unknown Venipuncture / Unknown 02/29/2024 4:15 PM CDT 02/29/2024 4:20 PM CDT Arnoldo Mejia MD CHEMISTRY [facility] [address] [place] [address], [place] * XR CHEST 2 VIEWS PA AND LATERAL (02/29/2024 4:08 PM CDT) Anatomical Region Laterality Modality CHEST, THORAX, Lung, HEART Compu benja Radiography 03/02/2024 5:46 AM CDT Impressions 03/02/2024 5:46 AM CDT Mild patchy bibasilar opacities, suspicious for pneumonia in the appropriate clinical context. Dictated by Diego Najera MD @ 03/02/2024 5:46:56 AM (Electronically Signed) Narrative 03/02/2024 5:46 AM CDT For Patients: ??As a result of the Cures Act, medical imaging exams and procedure reports are released immediately into your electronic medical record. ??You may view this report before your referring provider. ??If you have questions, please contact your health care provider. INDICATION: Cough TECHNIQUE: Chest 2 views. COMPARISON: Radiographs 09/12/2023. FINDINGS: Cardiovascular and mediastinum: ??Heart size and vasculature are normal in caliber and appearance. ?? Lungs and pleural spaces: ??Mild patchy bibasilar opacities bilaterally, right greater than left. No sign of pleural effusion. ??No pneumothorax. ?? Bones and soft tissues: ??No significant findings. Procedure Note Diego Najera MD - 03/02/2024 For Patients: As a result of the Cures Act, medical imagingexams and procedure reports are released immediately into your electronicmedical record. You may view this report before your referring provider.If you have questions, please contact your health care provider. INDICATION: Cough TECHNIQUE: Chest 2 views. COMPARISON: Radiographs 09/12/2023. FINDINGS: Cardiovascular and mediastinum: Heart size and vasculature are normal incaliber and appearance. Lungs and pleural spaces: Mild patchy bibasilar opacities bilaterally,right greater than left. No sign of pleural effusion. No pneumothorax. Bones and soft tissues: No significant findings. IMPRESSION: Mild patchy bibasilar opacities, suspicious for pneumonia in theappropriate clinical context. Dictated by Diego Najera MD @ 03/02/2024 5:46:56 AM (Electronically Signed) Arnoldo Mejia MD GENERAL IMAGING * XR MAMMO CORY BILAT SCREEN (11/17/2022 10:37 AM [employer]) Anatomical Region Laterality Modality BREASTS, Breast Left, Breast Right Bilateral Mammography Impressions 11/17/2022 1:28 PM [employer] ??There is no radiographic evidence for malignancy. ??Recommend annual mammograms. MAMMOGRAM ASSESSMENT: ??ACR 1 Negative PATIENTS: You will also receive a letter with your examination results in an easy to read format. ??If you have questions about your results, please contact your referring provider. Narrative 11/17/2022 1:28 PM [employer] For Patients: As a result of the Cures Act, medical imaging exams and procedure reports are released immediately into your electronic medical record. You may view this report before your referring provider. If you have questions, please contact your health care provider. XR MAMMO CORY BILAT SCREEN [[id number]] CLINICAL HISTORY: ??This is an asymptomatic 66 y.o. patient. INDICATION FOR EXAM: Mammogram Screening. TECHNIQUE: CC & MLO views were obtained. ??This study was evaluated with the assistance of Computer-Aided Detection. Breast Tomosynthesis was used in interpretation. COMPARISON FILM: Yes 03/07/21 [facility] 01/16/19 [facility] FINDINGS: ??The breasts are almost entirely fatty. There are no dominant masses, suspicious micro calcifications or areas of architectural distortion. Arnoldo Mejia MD MAMMO * (ABNORMAL) LIPID PANEL (09/28/2022 8:44 AM [employer]) CHOLESTEROL,TOTAL 123 100 - 199 mg/dL 09/29/2022 5:16 PM [employer] [facility] TRIGLYCERIDES 108 <150 mg/dL 09/29/2022 5:16 PM [employer] [facility] HDL CHOLESTEROL 39(L) >40 mg/dL 5:16 PM [employer] [facility] NON-HDL CHOLESTEROL 84 <145 mg/dl 09/29/2022 5:16 PM [employer] [facility] CHOL/HDL RATIO 3.15 <4.50 09/29/2022 5:16 PM [employer] [facility] LDL CHOLESTEROL 62 <=130 mg/dL 09/29/2022 5:16 PM [employer] [facility] VLDL CHOLESTEROL 22 <=30 mg/dL 09/29/2022 5:16 PM [employer] [facility] PROVIDER ORDERED STATUS RANDOM 09/29/2022 5:16 PM [employer] [facility] Blood BLOOD SPECIMEN / Unknown Venipuncture / Unknown 09/28/2022 8:44 AM [employer] 09/28/2022 8:45 AM [employer] Arnoldo Mejia MD CHEMISTRY [facility] [address] [place] [address], [facility] [address] [place] [address], * XR DXA BONE DENSITY 2 SITES AXIAL (11/28/2020 3:07 PM [employer]) Anatomical Region Laterality Modality Spine, HIPS, HIPL, HIPR Computed Radiography Impressions 12/03/2020 3:43 PM [employer] ?? OSTEOPOROSIS, because of past history of lumbar compression fracture. Consider repeating repeating a DXA scan in 5-7 years. Narrative 12/03/2020 3:43 PM [employer] PATIENT NAME: Radha Romo DATE OF : 1955 EXAM DATE: 12/03/2020 INDICATION: history of lumbar compression fracture TECHNIQUE: ??Dual-energy x-ray absorptiometry performed with routine technique. COMPARISON: 2011 RISK FACTORS: FINDINGS: Lumbar Spine: [L1-L4 (L2)]: ?BMD: [1.099]g/cm2. T-score: [-0.6] LEFT Hip Femoral neck: ?BMD: [0.798]g/cm2. T-score: [-1.7] LEFT Hip Total: ? BMD: [0.830]g/cm2. T-score: [-1.4] RIGHT Hip Femoral neck: ? BMD: [0.921]g/cm2. T-score: [-0.8] RIGHT Hip Total: ?BMD: [0.877]g/cm2. T-score: [1.0] WHO Criteria: Normal: T score at or above -1 SD Osteopenia: T score between -1.1 and -2.4 SD Osteoporosis: T score at or below -2.5 SD COMPARISON: Since 2011, there has been a 6.9% increase in lumbar spine BMD. There has been a 3.1% increase in hip BMD. FRAX Results: Not applicable due to previous medication for osteoporosis. Arnoldo Mejia MD DEXA * COLONOSCOPY (08/08/2020 9:10 AM CDT) 08/08/2020 9:10 AM CDT Narrative Transcriptions Gopal Hernandez MD - 08/08/2020 10:17 AM CDT Patient Name: Radha Romo Procedure Date: 08/08/2020 Gender: Female Date of : 1955 Admit Type: Ambulatory Procedure: Colonoscopy [facility]ural[facility] Indications/Pre-Op Diagnosis: High risk colon cancer surveillance:Personal history of colonic polyps, Family history of colon cancer in a first-degree relativebefore age 60 years Medications: Midazolam 5 mg IV, Fentanyl 75 microgramsIV Procedure Description: The patient had risks, benefits and alternatives explained to andgave informed consent. The patient had a stable cardiopulmonary status and judged an adequate candidate for conscious sedation. The colonoscope was passed through the anus and advanced to thececum, identified by appendiceal orifice and ileocecal valve. Thecolonoscopy was performed without difficulty. The patient tolerated the procedure well. The quality of the bowel preparation was good. The ileocecal valve, appendiceal orifice, and rectum were photographed. Complications: No immediate complications. Estimated Blood Loss & Specimen: Estimated blood loss: none. Specimen collected - Yes and sent to Laboratory Findings: The perianal and digital rectal examinations were normal. A 4 mm polyp was found in the rectum. The polyp was sessile. Thepolyp was removed with a hot snare. Resection and retrieval werecomplete. A few small-mouthed diverticula were found in the transverse colonand ascending colon. Multiple small and large-mouthed diverticula were found in thesigmoid colon and descending colon. The retroflexed view of the distal rectum and anal verge was normaland showed no anal or rectal abnormalities. Impressions/Post-Op Diagnosis: - One 4 mm polyp in the rectum, removed with a hot snare. Resectedand retrieved. - Diverticulosis in the transverse colon and in the ascendingcolon. - Diverticulosis in the sigmoid colon and in the descending colon. Recommendation: - Discharge patient to home. - Resume previous diet. - Continue present medications. - Await pathology results. - Repeat colonoscopy in 5 years for surveillance. Moderate Sedation: Moderate (conscious) sedation was administered by the endoscopy nurse and supervised by the endoscopist. The following parameters were monitored: oxygen saturation, heart rate, respiratory rate, adequacyof pulmonary ventilation and reponse to care. Please refer to the patient's medical record flowsheets for moderate sedation details. Moderate (conscious) sedation was administered by the endoscopy nurse and supervised by the endoscopist. The patient's oxygen saturation, heart rate, blood pressure and response to care were monitored. Total physician intraservice time was 33 minutes. Gopal Hernandez, 08/08/2020 10:17:05 AM This report has been signed electronically. Note Initiated On: 08/08/2020 9:10 AM Gopal Hernandez MD PROCEDURE ORD * ANTI HCV (10/31/2019 9:21 AM [employer]) HEPATITIS C ANTIBODY Non-React dari Non-React dari 10/31/2019 6:28 PM [employer] [facility] Comment:Antibodies to HCV no t detected; does not exclude the possibility of exposure to HCV. Blood BLOOD SPECIMEN / Unknown Venipuncture / Unknown 10/31/2019 9:21 AM [employer] 10/31/2019 9:24 AM [employer] Arnoldo Mejia MD SEND OUTS [facility] 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 Healthcare Directive 02/05/2021 021 * Full Code (Latest Code Status on File) Date Activated Date Inactivated Comments 11/28/2021 2:35 AM 12/02/2021 3:46 PM Question Answer Comments Code Status Discussion: Reviewed Preferences * Full Code Date Activated Date Inactivated Comments 11/11/2021 1:33 PM 11/12/2021 5:16 PM Question Answer Comments Code Status Discussion: Reviewed Preferences * Full Code Date Activated Date Inactivated Comments 08/08/2020 8:05 AM 08/08/2020 1:24 PM Question Answer Comments Code Status Discussion: Per Existing Order * Full Code Date Activated Date Inactivated Comments 03/13/2019 10:28 AM 03/13/2019 5:39 PM * Full Code Date Activated Date Inactivated Comments 02/22/2019 9:34 PM 03/02/2019 9:07 PM Care Teams Nude Model Relationship Specialty Start Date End Date Arnoldo Mejia MD [address] [place] [address] PCP - General Family Practice 05/11/17 Jax Bradford DPM [address] [place] [address] PODIATRY Podiatry 09/24/11
--- OUTSIDE RECORDS SUMMARY | 2024-05-09 12:08 | XMS_ITS | Encounter Summary ---
Author Organization [facility] Address [address] [place] [id number] Care Team Providers Care Sales [employer] Associate Name Role Phone Arnoldo Mejia MD Primary Care Provider [phone] Encounter Details Date Type Department Care Team (Latest Contact Info) Description 04/26/2024 Travel Social History Tobacco Use Types Packs/Day Years [...] on file Sexual Orientation Not on file documented as of this encounter Plan of Treatment Not on file documented as of this encounter Visit Diagnoses Not on filedocumented in this encounter Additional Health Concerns Infection Onset Date Last Indicated Resolved Time Rule Out COVID-19 04/26/2024 04/26/2024 04/26/2024 11:23 AM CDT documented as of this encounter Care Teams Sales Solutions Associate Relationship Specialty Start Date End Date Arnoldo Mejia MD [address] [place] [address] PCP - General 08/26/21 documented as of this encounter
--- OUTSIDE RECORDS SUMMARY | 2024-05-09 12:08 | XMS_ITS | Encounter Summary ---
Author Organization [facility] Address [address] [place] [id number] Care Team Providers Care Center Lead Consultant Name Role Phone Arnoldo Mejia MD Primary Care Provider [phone] Reason for Visit * Reason Comments Altered Mental Status Shortness of Breath Fatigue * Auth/Cert Specialty Diagnoses / Procedures Referred By Contkassidy t Referred To Contact EMERGENCY MEDICINE Diagnoses Pneumonia due to infectious organism, unspecified laterality, unspecified part of lung Sepsis with encephalopathy without septic shock, due to unspecified organism (H) Emergency Dept [address] [place] [address] Referral ID Status Reason Start Date Expiration Date Visits Re quested Visits Authorized [id number] 1 1 Encounter Details Date Type Department Care Team (Latest Contact Info) Description 04/26/2024 10:10 AM CDT - 04/29/2024 1:58 PM CDT Hospital Encounter [facility] [address] [place] [address] Connor Mast MD [facility] [address] [address] Mike Gill MD [address] [place] [facility] [place] [address] Chris Ford MD [address] [facility] [place] [address] Pneumonia due to infectious organism, unspecified laterality, unspecified part of lung; Sepsis with encephalopathy without septic shock, due to unspecified organism (H) Discharge Disposition: Home or Self Care Social History Tobacco Use Types Packs/Day Years [...] on file documented as of this encounter Last Filed Vital Signs Vital Sign Reading [...] Mass Index 45.05 04/26/2024 10:15 AM CDT documented in this encounter Discharge Summaries * Chris Ford MD - 04/29/2024 11:20 AM CDT [facility] Hospitalist Discharge Summary Date of Admission: 04/26/2024 Date of Discharge: 04/29/2024 Discharging Provider: Chris Ford MD Discharge Service: Hospitalist Service Discharge Diagnoses Active Problems: Pneumonia due to infectious organism, unspecified laterality, unspecified part of lung Sepsis with encephalopathy without septic shock, due to unspecified organism (H) Anxiety state CAD in [place] artery Chronic, continuous use of opioids Compression fx, lumbar spine (H) Depressive disorder Dyslipidemia HTN (hypertension) Hypothyroidism Lumbar spinal stenosis Type 2 diabetes mellitus without complication (H) Clinically Significant Risk Factors # Severe Obesity: Estimated body mass index is 45.05 kg/m?? as calculated from the following: Height as of this encounter: 1.549 m (5' 1). Weight as of this encounter: 108.1 kg (238 lb 6.4 oz). Follow-ups Needed After Discharge Follow-up Appointments Follow-up and recommended labs and tests Follow up with primary care provider, Arnoldo Mejia ideally in 7 to 10 days for hospital follow- up. Unresulted Labs Ordered in the Past 30 Days of this Admission Date and Time Order Name Status Description 04/26/2024 10:28 AM Blood Culture Peripheral Blood Preliminary 04/26/2024 10:28 AM Blood Culture Peripheral Blood Preliminary These results will be followed up by NA Discharge Disposition Discharged to home Condition at discharge: Stable Hospital Course Radha Romo is a 68 year old woman with a past medical history of diabetes, coronary disease, hypertension, hypothyroidism, status post TAVR who presented to the emergency department with fever, cough and altered mental status. She was found to have sepsis from pneumonia Active Problems: Sepsis with encephalopathy without septic shock, due to unspecified organism (H) Pneumonia due to infectious organism, unspecified laterality, unspecified part of lung Met sepsis criteria with fever to 101.1, tachycardia, WBC 12 and elevated lactate to 2.5. Sepsis bolus given in the emergency department but was discontinued due to concerns for volume overload. UA was unremarkable. COVID, RSV and influenza negative. She was treated for pneumonia with augmentin and azithromycin in February 2024. Started on IV Levaquin Patient reports confusion, does not recall events of day of admission. Mentally cleared with treatment. Repeat chest x-ray the following morning showed a left lobe infiltrate Trialed DuoNebs, but caused shakiness. No benefit from nebs. Strep pneumonia and Legionella antigens negative Blood cultures NGTD Received repeated furosemide IV doses to finally wean off O2. Discharging without O2, complete 4 more days of Levaquin Type 2 diabetes mellitus without complication (H) A1c 6.2% QID AC HS glucose checks Low sliding scale insulin Held home metformin initially, resumed after improving CAD in [place] artery Dyslipidemia S/P TAVR Most recent ECHO from [facility] from 12/17/21 demonstrates normal EF, normal RV function and mild mitral stenosis. Continue atorvastatin 20mg and asa 81mg daily Chronic, continuous use of opioids Compression fx, lumbar spine (H) Lumbar spinal stenosis PDMP confirms that she is on fentanyl patches 25mcg and hydrocodone 10/325. Continue home pain regimen Depressive disorder Anxiety state Continue home bupropion 150mg BID, lexapro 20mg daily HTN (hypertension) Held home triamterene-hydrochlorothiazide 37.5-25mg daily, resume by discharge Continue losartan Restless legs Assessment: Continue home mirapex, gabapentin Acute anemia Hemoglobin down from 14 to 10.5, stable at 10.9 Known iron deficiency. Hemoglobin drop likely due to dilution and sepsis Stopped enoxaparin and aspirin Continue PPI Consultations This Hospital Stay PHARMACY TO DOSE VANCO Code Status Full Code Time Spent on this Encounter I, Chris Ford MD, personally saw the patient today and spent greater than 30 minutes discharging this patient. Chris Ford MD [facility] [address] [facility] [address] Physical Exam Vital Signs: Temp: 97 ??F (36.1 ??C) Temp src: Tympanic BP: (!) 164/72 Pulse: 78 Resp: 18 SpO2: 91 % O2 Device: None (Room air) Oxygen Delivery: 1 LPM Weight: 238 lbs 6.4 oz General Appearance: Alert. No acute distress Chest/Respiratory Exam: Crackles in left base. Improved from admission. No wheezing. Remainder of lungs clear Cardiovascular Exam: Regular rate and rhythm. S1, S2, no murmur, gallop, or rubs. Extremities: No lower extremity edema. Psychiatric: Normal affect and mentation Primary Care Physician Arnoldo Mejia Discharge Orders Reason for your hospital stay Sepsis from pneumonia Follow-up and recommended labs and tests Follow up with primary care provider, Arnoldo Mejia ideally in 7 to 10 days for hospital follow- up. Activity Your activity upon discharge: activity as tolerated Discharge Instructions Do not take vitamins while on Levaquin Diet Follow this diet upon discharge: regular diet Significant Results and Procedures Most Recent 3 CBC's: Recent Labs Lab Test 07/04/17 52704/28/24 0555 04/27/24 0752 WBC 6.0 8.5 12.0* HGB 10.9* 10.5* 11.5* MCV 97 94 96 PLT 151 139* 140* Most Recent 3 BMP's: Recent Labs Lab Test 04/29/24 0734 04/29/2427 04/28/24 2121 04/28/24 1132 04/28/24 0555 04/27/24 1117 04/27/24 0752 NA -- 136 -- -- 132* -- 130* POTASSIUM -- 3.8 -- -- 3.6 -- 3.7 CHLORIDE -- 96* -- -- 93* -- 90* CO2 -- 33* -- -- 32* -- 33* BUN -- 17.9 -- -- 14.6 -- 13.3 CR -- 0.77 -- -- 0.76 -- 0.70 ANIONGAP -- 7 -- -- 7 -- 7 MANSI -- 9.1 -- -- 8.6* -- 9.2 GLC 125* 134* 139* < > 149* < > 139* < > = values in this interval not displayed. Most Recent 2 LFT's: Recent Labs Lab Test 04/26/24 1030 AST 32 ALT 30 ALKPHOS 78 BILITOTAL 0.8 , Results for orders placed or performed during the hospital encounter of 04/26/24 XR Chest Port 1 View Narrative Procedure:XR CHEST PORT 1 VIEW Clinical history:Female, 68 years, Fever Technique: Single view was obtained. Comparison: No relevant prior imaging. Findings: The cardiac silhouette appears mildly enlarged. The pulmonary vasculature is distended and indistinct The lungs demonstrate diffuse interstitial thickening with patchy areas of airspace consolidation. Costophrenic angles are sharp Bony structures are unremarkable. Impression Impression: Constellation of findings suggesting CHF with developing perihilar/ infrahilar pulmonary edema. No apparent pleural effusion. NIRMAL SHANNON MD XR Chest 2 Views Narrative PROCEDURE INFORMATION: Exam: XR Chest Exam date [...] Heart/Mediastinum: Normal heart size. TAVR. Bones/joints: Unremarkable. Impression IMPRESSION: Left lower lobe pneumonia. THIS DOCUMENT HAS BEEN ELECTRONICALLY SIGNED BY RY MASON MD Discharge Medications Current Discharge Medication List START taking these medications Details levofloxacin (LEVAQUIN) 750 MG tablet Take 1 tablet (750 mg) by mouth daily for 4 days Qty: 4 tablet, Refills: 0 Associated Diagnoses: Pneumonia due to infectious organism, unspecified laterality, unspecified part of lung CONTINUE these medications which have NOT CHANGED Details acetaminophen (TYLENOL) 500 MG tablet Take 500-1,000 mg by mouth every 8 hours as needed for mild pain allopurinol (ZYLOPRIM) 300 MG tablet Take 300 mg by mouth daily aspirin 81 MG EC tablet Take 81 mg by mouth daily atorvastatin (LIPITOR) 20 MG tablet Take 20 mg by mouth At Bedtime buPROPion (WELLBUTRIN SR) 150 MG 12 hr tablet Take 150 mg by mouth 2 times daily calcium-vitamin D (OSCAL) 250-125 MG-UNIT TABS per tablet Take 1 tablet by mouth 2 times daily escitalopram (LEXAPRO) 20 MG tablet Take 20 mg by mouth daily fentaNYL (DURAGESIC) 25 mcg/hr [address] 1 patch onto the skin every 72 hours FEROSUL 325 (65 Fe) MG tablet Take 325 mg by mouth daily (with breakfast) gabapentin (NEURONTIN) 600 MG tablet Take 1,200 mg by mouth 3 times daily Glucosamine-Chondroitin 250-200 MG TABS Take 1 tablet by mouth 2 times daily HYDROcodone-acetaminophen (NORCO) 10-325 MG per tablet TAKE 1 TABLET BY MOUTH EVERY 4 HOURS NEEDED FOR PAIN . DO NOT EXCEED 6 PER 24 HOURS (USE DATES 04/21/24-05/20/24) losartan (COZAAR) 25 MG tablet Take 1 tablet by mouth daily metFORMIN (GLUCOPHAGE) 1000 MG tablet Take 1,000 mg by mouth 2 times daily (with meals) methocarbamol (ROBAXIN) 750 MG tablet Take 750 mg by mouth 3 times daily as needed for muscle spasms multivitamin w/minerals (THERA-VIT-M) tablet Take 1 tablet by mouth daily [place]-3 Fatty Acids (FISH OIL) 600 MG CAPS Take 2 capsules by mouth daily omeprazole (PRILOSEC) [address] capsule Take 20 mg by mouth daily pramipexole (MIRAPEX) 0.125 MG tablet Take 0.25 mg by mouth At Bedtime triamterene-HCTZ (MAXZIDE-25) 37.5-25 MG tablet Take 1 tablet by mouth every morning Allergies Allergies Allergen Reactions Cefazolin Anaphylaxis Tolerates cephalexin Ibuprofen Other (See Comments) and Unknown 6 unit upper GI bleed. Alendronate Other (See Comments) Tooth problem - possible osteonecrosis Blood-Group Specific Substance Other (See Comments) 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 Blood products may be delayed. Draw patient 24 hours prior to transfusion. Draw one red top and two purple top tubes for all type and screen orders. Patient has an anti-[place] antibody. Blood products may be delayed. Draw patient 24 hours prior to transfusion. For [facility] testing, draw one red top and two purple top tubes for all Type and Screen orders. Oxycodone-Acetaminophen Visual Disturbance Percocet [Oxycodone-Acetaminophen] Hallucination, tolerates [place] and plain APAP Salicylates Other (See Comments) and Unknown Contraindicated documented in this encounter Medications at Time of Discharge Medication Sig Dispensed Refills Start Date End Date acetaminophen (TYLENOL) 500 MG tablet Take 500-1,000 mg by mouth every 8 hours as needed for mild pain allopurinol (ZYLOPRIM) 300 MG tablet Take 300 mg by mouth daily aspirin 81 MG EC tablet Take 81 mg by mouth daily atorvastatin (LIPITOR) 20 MG tablet Take 20 mg by mouth At Bedtime buPROPion (WELLBUTRIN SR) 150 MG 12 hr tablet Take 150 mg by mouth 2 times daily calcium-vitamin D (OSCAL) 250-125 MG-UNIT TABS per tablet Take 1 tablet by mouth 2 times daily escitalopram (LEXAPRO) 20 MG tablet Take 20 mg by mouth daily fentaNYL (DURAGESIC) 25 mcg/hr [address] 1 patch onto the skin every 72 hours 03/27/2024 FEROSUL 325 (65 Fe) MG tablet Take 325 mg by mouth daily (with breakfast) 03/16/2024 gabapentin (NEURONTIN) 600 MG tablet Take 1,200 mg by mouth 3 times daily 03/10/2024 Glucosamine-Chondroitin 250-200 MG TABS Take 1 tablet by mouth 2 times daily HYDROcodone-acetaminophe n (NORCO) 10-325 MG per tablet TAKE 1 TABLET BY MOUTH EVERY 4 HOURS NEEDED FOR PAIN . DO NOT EXCEED 6 PER 24 HOURS (USE DATES 04/21/24-05/20/24) losartan (COZAAR) 25 MG tablet Take 1 tablet by mouth daily 03/04/2024 metFORMIN (GLUCOPHAGE) 1000 MG tablet Take 1,000 mg by mouth 2 times daily (with meals) methocarbamol (ROBAXIN) 750 MG tablet Take 750 mg by mouth 3 times daily as needed for muscle spasms multivitamin w/minerals (THERA-VIT-M) tablet Take 1 tablet by mouth daily [place]-3 Fatty Acids (FISH OIL) 600 MG CAPS Take 2 capsules by mouth daily omeprazole (PRILOSEC) [address] capsule Take 20 mg by mouth daily pramipexole (MIRAPEX) 0.125 MG tablet Take 0.25 mg by mouth At Bedtime triamterene-HCTZ (MAXZIDE-25) 37.5-25 MG tablet Take 1 tablet by mouth every morning levofloxacin (LEVAQUIN) 750 MG tabletIndications:Pneumo alexandra due to infectious organism, unspecified laterality, unspecified part of lung Take 1 tablet (750 mg) by mouth daily for 4 days 4 tablet 04/29/2024 05/03/2024 documented as of this encounter Progress Notes * Stephanie Apodaca RT - 04/29/2024 6:13 AM CDT Patient remains on 1L NC overnight. Breath sounds crackles throughout. Scheduled nebs given. No complaints of shortness of breath. * Darling Sanchez RN - 04/29/2024 2:09 AM CDT Took over pt care at 0200. Report received from NORBERTO Bauman RN............................ 04/29/2024 2:09 AM * Jesus Mendieta, RT - 04/28/2024 5:48 PM CDT Pt on RA at this time. Hospital CPAP in room. Nebs changed, and given as scheduled. No other RT interventions at this time. * Chris Ford MD - 04/28/2024 2:04 PM CDT [facility] Medicine Progress Note - Hospitalist Service Date of Admission: 04/26/2024 Assessment & Plan Radha Romo is a 68 year old woman with a past medical history of diabetes, coronary disease, hypertension, hypothyroidism, status post TAVR who presented to the emergency department with fever, cough and altered mental status. She was found to have sepsis from pneumonia Active Problems: Sepsis with encephalopathy without septic shock, due to unspecified organism (H) Pneumonia due to infectious organism, unspecified laterality, unspecified part of lung Meets sepsis criteria with fever to 101.1, tachycardia, WBC 12 and elevated lactate to 2.5. Sepsis bolus given in the emergency department but was discontinued due to concerns for volume overload. She was treated for pneumonia with augmentin and azithromycin in February 2024. UA was unremarkable. COVID, RSV and influenza as these are negative. Patient reports confusion, does not recall events of day of admission. Mentally improving with treatment. Headache, but no nuchal rigidity and mentation is actually improved with IV antibiotics so doubt that this is meningitis. Treated with IV Toradol. Started on IV Levaquin Repeat chest x-ray the following morning showed a left lobe infiltrate Trialed DuoNebs, but caused shakiness. Changed to budesonide as she received steroids in the past for respiratory illness, but no diagnosed asthma or COPD Strep pneumonia and Legionella antigens pending Blood cultures NGTD Remains on 1 L. Continue trying to wean O2. Weight up since admit, furosemide x 1 today Hopefully able to discharge tomorrow Type 2 diabetes mellitus without complication (H) A1c 6.2% QID AC HS glucose checks Low sliding scale insulin Held home metformin initially, resume now that she is improving CAD in [place] artery Dyslipidemia S/P TAVR Most recent ECHO from [facility] from 12/17/21 demonstrates normal EF, normal RV function and mild mitral stenosis. Continue atorvastatin 20mg and asa 81mg daily Chronic, continuous use of opioids Compression fx, lumbar spine (H) Lumbar spinal stenosis PDMP confirms that she is on fentanyl patches 25mcg and hydrocodone 10/325. Continue home pain regimen Depressive disorder Anxiety state Continue home bupropion 150mg BID, lexapro 20mg daily HTN (hypertension) Held home triamterene-hydrochlorothiazide 37.5-25mg daily, resume by discharge Continue losartan Restless legs Assessment: Continue home mirapex, gabapentin Acute anemia Hemoglobin down from 14 to 10.5 Known iron deficiency. Hemoglobin drop likely due to dilution and sepsis Stop enoxaparin and aspirin Continue PPI Diet: Combination Diet Regular Diet Adult DVT Prophylaxis: SCDs [place] Catheter: Not present Lines: None Cardiac Monitoring: None Code Status: Full Code Clinically Significant Risk Factors # Hypertension: Noted on problem list #Precipitous drop in Hgb/Hct: Lowest Hgb this hospitalization: 10.5 g/dL. Will continue to monitor and treat/transfuse as appropriate. # Severe Obesity: Estimated body mass index is 45.05 kg/m?? as calculated from the following: Height as of this encounter: 1.549 m (5' 1). Weight as of this encounter: 108.1 kg (238 lb 6.4 oz)., PRESENT ON ADMISSION Disposition Plan Medically Ready for Discharge: Anticipated Tomorrow Chris Ford MD Hospitalist Service [facility] Securely message with Rebekah (more info) Text page via [facility] Paging/Directory Interval History Weaned O2 down to 1 L. Feels good. Hopes to return home. Trialed furosemide, ambulation, but still on O2 Physical Exam Vital Signs: Temp: 98.3 ??F (36.8 ??C) Temp src: Tympanic BP: (!) 150/69 Pulse: 82 Resp: 18 SpO2: 92 % O2 Device: Nasal cannula Oxygen Delivery: 1 LPM Weight: 238 lbs 6.4 oz General Appearance: Alert. No acute distress Chest/Respiratory Exam: Left base crackles Cardiovascular Exam: Regular rate and rhythm. S1, S2, no murmur, gallop, or rubs. Extremities: No lower extremity edema. Psychiatric: Normal affect and mentation Medical Decision Making Data I have personally reviewed the following data over the past 24 hrs: 8.5 \ 10.5 (L) / 139 (L) 132 (L) 93 (L) 14.6 / 175 (H) 3.6 32 (H) 0.76 \ Procal: 0.59 (H) CRP: N/A Lactic Acid: N/A Imaging results reviewed over the past 24 hrs: No results found for this or any previous visit (from the past 24 hour(s)). * Tamara Pérez LSW - 04/28/2024 1:09 PM CDT Interdisciplinary Discharge Planning Note Anticipated Discharge Date: 04/29/24 Anticipated Discharge Location: home Clinical Needs Before Discharge: stable oxygen requirement Treatment Needs After Discharge: None identified Potential Barriers to Discharge: None identified at this time СЕРГЕЙ Melgar 04/28/2024, 1:09 PM * Yonny Mullen RN - 04/28/2024 8:00 AM CDT = SAFETY CHECKLIST ID Bands and Risk clasps correct and in place (DNR, Fall risk, Allergy, Latex, Limb): Yes All Lines Reconciled and labeled correctly: Yes Whiteboard updated:Yes * Mary Ellen Paulino RT - 04/27/2024 7:14 PM CDT Shift Summary Pt is currently on 1 LPM after being titrated down from 4 LPM at start of shift. SpO2 91-93%. Lung Sounds diminished with fine crackles in bilateral bases. Pt started on DuoNebs this afternoon to tryand help with the Pneumonia. Pt has our Home CPAP in room. No further interventions at this time. RT Beba * Yonny Mullen RN - 04/27/2024 6:58 PM CDT Headache to base occipital lobe unrelieved by acetaminophen and [place]. One-time order for ketorolacadministered at this time. Patient denies changes in vision, or balance. Patient is symmetrical. Reports a long history of headaches that impact her /30 days. Usually relieved by [place]. * Chris Ford MD - 04/27/2024 12:27 PM CDT [facility] Medicine Progress Note - Hospitalist Service Date of Admission: 04/26/2024 Assessment & Plan Radha Romo is a 68 year old woman with a past medical history of diabetes, coronary disease, hypertension, hypothyroidism, status post TAVR who presented to the emergency department with fever, cough and altered mental status. She was found to have sepsis from pneumonia Active Problems: Sepsis with encephalopathy without septic shock, due to unspecified organism (H) Pneumonia due to infectious organism, unspecified laterality, unspecified part of lung Meets sepsis criteria with fever to 101.1, tachycardia, WBC 12 and elevated lactate to 2.5. Sepsis bolus given in the emergency department but was discontinued due to concerns for volume overload. She was treated for pneumonia with augmentin and azithromycin in February 2024. UA was unremarkable. COVID, RSV and influenza as these are negative. Patient reports confusion, does not recall events of day of admission. Mentally improving with treatment. Headache, but no nuchal rigidity and mentation is actually improved with IV antibiotics so doubt that this is meningitis. Treat with IV Toradol. Started on IV Levaquin Repeat chest x-ray the following morning showed a left lobe infiltrate Continue trying to wean O2 Schedule DuoNebs Sent strep pneumonia and Legionella antigens Blood cultures NGTD Type 2 diabetes mellitus without complication (H) A1c 6.2% QID AC HS glucose checks Low sliding scale insulin Hold home metformin while septic CAD in [place] artery Dyslipidemia S/P TAVR Most recent ECHO from [facility] from 12/17/21 demonstrates normal EF, normal RV function and mild mitral stenosis. Continue atorvastatin 20mg and asa 81mg daily Chronic, continuous use of opioids Compression fx, lumbar spine (H) Lumbar spinal stenosis PDMP confirms that she is on fentanyl patches 25mcg and hydrocodone 10/325. Continue home pain regimen Depressive disorder Anxiety state Continue home bupropion 150mg BID, lexapro 20mg daily HTN (hypertension) Hold home triamterene-hydrochlorothiazide 37.5-25mg daily Continue losartan Restless legs Assessment: Continue home mirapex, gabapentin Diet: Combination Diet Regular Diet Adult DVT Prophylaxis: Enoxaparin (Lovenox) SQ [place] Catheter: Not present Lines: None Cardiac Monitoring: None Code Status: Full Code Clinically Significant Risk Factors # Hypertension: Noted on problem list # Severe Obesity: Estimated body mass index is 43.29 kg/m?? as calculated from the following: Height as of this encounter: 1.549 m (5' 1). Weight as of this encounter: 103.9 kg (229 lb 1.6 oz)., PRESENT ON ADMISSION Disposition Plan Medically Ready for Discharge: Anticipated in 2-4 Days Chris Ford MD Hospitalist Service [facility] Securely message with Rebekah (more info) Text page via [facility] Paging/Directory Interval History Weaned O2 from 4 L down to 2 L. Cough improving. Has a little bit reduced appetite, but that has improved. Denies chest pain. Physical Exam Vital Signs: Temp: 99 ??F (37.2 ??C) Temp src: Tympanic BP: 127/68 Pulse: 79 Resp: 16 SpO2: 92 % [id number]: Nasal cannula with humidification Oxygen Delivery: 1 LPM Weight: 229 lbs 1.6 oz General Appearance: Alert. No acute distress Chest/Respiratory Exam: Left base crackles Cardiovascular Exam: Regular rate and rhythm. S1, S2, no murmur, gallop, or rubs. Extremities: No lower extremity edema. Psychiatric: Normal affect and mentation Medical Decision Making Data I have personally reviewed the following data over the past 24 hrs: 12.0 (H) \ 11.5 (L) / 140 (L) 130 (L) 90 (L) 13.3 / 167 (H) 3.7 33 (H) 0.70 \ TSH: N/A T4: N/A A1C: N/A Procal: N/A CRP: N/A Lactic Acid: 1.6 Imaging results reviewed over the past 24 hrs: Recent Results (from the past 24 hour(s)) XR Chest 2 Views Narrative PROCEDURE INFORMATION: Exam: XR Chest Exam date [...] Heart/Mediastinum: Normal heart size. TAVR. Bones/joints: Unremarkable. Impression IMPRESSION: Left lower lobe pneumonia. THIS DOCUMENT HAS BEEN ELECTRONICALLY SIGNED BY RY MASON MD * Dusty Marti RT - 04/27/2024 6:12 AM CDT No acute RT concerns overnight. Pt remains on 4L NC. RT Jacob * Dusty Marti RT - 04/26/2024 9:03 PM CDT Pt would prefer to not wear CPAP machine tonight. Pt does not like the machine provided. Pt on 3L NC currently. No acute RT concerns at this time. Dusty Marti, RT * Blanca Pate RN - 04/26/2024 6:36 PM CDT Vital signs stable, alert and oriented. Patient experiencing headaches but managed with scheduled medications. Scattered bruising. Adequate urine out. Patient is on 4 litters of oxygen, stating at 95-96. Petechiae on her left arm. Using bedside commode with assist of 1. Blood pressure (!) 196/102, pulse 105, temperature 98.8 ??F (37.1 ??C), temperature source Tympanic, resp. rate 20, height 1.549 m (5' 1), weight 99.6 kg (219 lb 9.6 oz), SpO2 92%. Blanca Pate RN on 04/26/2024 at 6:40 PM * Blanca Pate RN - 04/26/2024 6:31 PM CDT [facility] ADMISSION NOTE Patient admitted to room 313 at approximately 1430 via bed from emergency room. Patient was accompanied by spouse. Verbal SBAR report received from Tamara prior to patient arrival. Patient ambulated to bed with one assist. Patient alert and oriented X 3. Pain is controlled with current analgesics. Medication(s) being used: acetaminophen and narcotic analgesics including Fentanyl patch. . Admission vital signs: Blood pressure (!) 196/102, pulse 105, temperature 98.8 ??F (37.1 ??C), temperature source Tympanic, resp. rate 20, height 1.549 m (5' 1), weight 99.6 kg (219 lb 9.6oz), SpO2 92%. Patient and spouse were oriented to plan of care, call light, bed controls, tv, telephone, bathroom, and visiting hours. Risk Assessment The following safety risks were identified during admission: fall and skin. Yellow risk band applied: YES. Skin Initial Assessment This show card writer admitted this patient and completed a full skin assessment and Andrew score in the Adult PCS flowsheet. Photo documentation of skin problem and/or wound competed via Haiku application (located under Media): No Appropriate interventions initiated as needed. Secondary skin check completed by NORBERTO Peterson. Andrew Risk Assessment Sensory Perception: 3-->slightly limited Moisture: 3-->occasionally moist Activity: 3-->walks occasionally Mobility: 3-->slightly limited Nutrition: 3-->adequate Friction and Shear: 3-->no apparent problem Andrew Score: 18 Moisture Interventions: Incontinence pad Mattress: Standard gel/foam mattress (IsoFlex, Atmos Air, etc.) Bed Frame: Standard width and length Education Patient has a Swain to Observation order: Yes Observation education completed and documented: N/A Blanca Pate RN * Shellie Tirado RRT - 04/26/2024 3:50 PM CDT Pt unable to bring her home CPAP. Will set up [employer] CPAP for her to use during her stay. AMOL Brasher * Shellie Tirado RRT - 04/26/2024 10:38 AM CDT Notified by RN. Pt was placed on 4L NC for low sats. Shellie Tirado RRT documented in this encounter H&P Notes * Mike Gill MD - 04/26/2024 1:17 PM CDT [facility] History and Physical - Hospitalist Service Date of Admission: 04/26/2024 Assessment & Plan Radha Romo is a 68 year old woman with a past medical history of diabetes, coronary disease, hypertension, hypothyroidism, status post TAVR who presented to the emergency department with fever, cough and altered mental status. She was found to have sepsis, presumed source with her cough is p neumonia though no vinicio infiltrate on chest x-ray. Active Problems: Severe sepsis (H) Pneumonia due to infectious organism, unspecified laterality, unspecified part of lung Sepsis with encephalopathy without septic shock, due to unspecified organism (H) Assessment: Meets sepsis criteria with fever, tachycardia and Leukocytosis with elevated lactate to2.5. Sepsis bolus given in the emergency department but was discontinued due to volume overload. She was treated for pneumonia with augmentin and azithromycin in February 2024. With pulmonary symptoms presume that source is pneumonia, may be an acute developing pneumonia. UA was unremarkable, could be aviral illness other than COVID, RSV and influenza as these are negative. No nuchal rigidity and mentation is actually improved with IV antibiotics so doubt that this is meningitis. No rashes or soresappreciated. Narrow antibiotics to levofloxacin. Repeat chest x-ray in a.m. Plan: -Admit to inpatient -full code -Regular diet -Levothyroxine 750 mg daily -Follow blood cultures -Repeat chest x-ray in a.m., low threshold for CT -Most recent ECHO from [facility] from 12/17/21 demonstrates normal EF, normal RV function and mild mitral stenosis. Type 2 diabetes mellitus without complication (H) Assessment: Most recent hemoglobin A1C in our system was 5.7 in 2020. No medications on home med list. Plan: -add on hemoglobin A1C -QID AC HS glucose checks -Low sliding scale -hold home metformin while septic CAD in [place] artery Dyslipidemia Assessment: Continue atorvastatin 20mg at bedtime. S/p TAVR Plan: -atorvastatin 20mg at bedtime -continue asa 81mg daily Chronic, continuous use of opioids Compression fx, lumbar spine (H) Lumbar spinal stenosis Assessment: PDMP confirms that she is on fentanyl patches 25mcg and hydrocodone 10/325. 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 Plan: -Hold home triamterene-hydrochlorothiazide 37.5-25mg daily -continue losartan Hypothyroidism Assessment: Add on TSH, does not appear to be on levothyroxine Restless legs Assessment: Continue home mirapex, gabapentin Diet: Regular diet DVT Prophylaxis: Enoxaparin (Lovenox) SQ [place] Catheter: Not present Lines: None Cardiac Monitoring: None Code Status: Full code Clinically Significant Risk Factors Present on Admission # Drug Induced Platelet Defect: home medication list includes an antiplatelet medication # Hypertension: Home medication list includes antihypertensive(s) # Severe Obesity: Estimated body mass index is 40.62 kg/m?? as calculated from the following: Height as of this encounter: 1.549 m (5' 1). Weight as of this encounter: 97.5 kg (215 lb). Disposition Plan Medically Ready for Discharge: Anticipated in 2-4 Days Mike Gill MD Hospitalist Service [facility] Securely message with Huddler (more info) Text page via [facility] Paging/Directory Chief Complaint fever History is obtained from the patient, ED physician and patient's spouse History of Present Illness Radha Romo is a 68 year old woman with past medical history of chronic pain, coronary artery disease, type 2 diabetes and lumbar stenosis who presented to the emergency department today with fevers and malaise. She is up here visiting family from [facility]. She developed some nausea and headache the night prior to presentation. She has also been coughing frequently. No nausea or vomiting. She feels like she has progressed over the last 24 hours. No chest pain. She is not on supplemental oxygen. No new swelling in her hands legs or feet. No rashes or sores. No neck stiffness. She was initially confused for the ED provider but is much more alert and conversant with me. No recent changes in medication. Most recent ECHO in 2021 was normal. Past Medical History Past Medical History: Diagnosis Date Aortic valve stenosis Arthritis Complication of anesthesia SOB Coronary artery disease Depression Diabetes (H) Gastroesophageal reflux disease History of blood transfusion Hypertension Kidney stones Obese Other chronic pain chronic low back pain Sleep apnea Past Surgical History Past Surgical History: Procedure Laterality Date ARTHROPLASTY, HIP, TOTAL, DIRECT ANTERIOR APPROACH, USING HANA TABLE Right 09/16/2021 Procedure: RIGHT DIRECT ANTERIOR TOTAL HIP ARTHROPLASTY; Surgeon: Ehsan Dumont MD; Location: [facility] Main OR GASTRIC BYPASS Prior to Admission Medications Prior to Admission Medications Prescriptions Last Dose Informant Patient Reported? Taking? FEROSUL 325 (65 Fe) MG tablet 04/25/2024 at AM Yes Yes Sig: Take 325 mg by mouth daily (with breakfast) Glucosamine-Chondroitin 250-200 MG TABS 04/25/2024 at PM Yes Yes Sig: Take 1 tablet by mouth 2 times daily HYDROcodone-acetaminophen (NORCO) 10-325 MG per tablet 04/25/2024 at PM Yes Yes Sig: TAKE 1 TABLET BY MOUTH EVERY 4 HOURS NEEDED FOR PAIN . DO NOT EXCEED 6 PER 24 HOURS (USE DATES 04/21/24-05/20/24) [place]-3 Fatty Acids (FISH OIL) 600 MG CAPS 04/25/2024 at AM Yes Yes Sig: Take 2 capsules by mouth daily allopurinol (ZYLOPRIM) 300 MG tablet 04/25/2024 at AM Yes Yes Sig: Take 300 mg by mouth daily aspirin 81 MG EC tablet 04/25/2024 at AM Yes Yes Sig: Take 81 mg by mouth daily atorvastatin (LIPITOR) 20 MG tablet 04/25/2024 at PM Yes Yes Sig: Take 20 mg by mouth At Bedtime buPROPion (WELLBUTRIN SR) 150 MG 12 hr tablet 04/25/2024 at PM Yes Yes Sig: Take 150 mg by mouth 2 times daily calcium-vitamin D (OSCAL) 250-125 MG-UNIT TABS per tablet 04/25/2024 at PM Yes Yes Sig: Take 1 tablet by mouth 2 times daily escitalopram (LEXAPRO) 20 MG tablet 04/25/2024 at AM Yes Yes Sig: Take 20 mg by mouth daily fentaNYL (DURAGESIC) 25 mcg/hr 72 hr patch 04/26/2024 at [employer] 04/25-needs dose 04/27 Yes Yes Sig: Place 1 patch onto the skin every 72 hours gabapentin (NEURONTIN) 600 MG tablet 04/25/2024 at PM Yes Yes Sig: Take 1,200 mg by mouth 3 times daily losartan (COZAAR) 25 MG tablet 04/25/2024 at PM Yes Yes Sig: Take 1 tablet by mouth daily metFORMIN (GLUCOPHAGE) 1000 MG tablet 04/25/2024 at PM Yes Yes Sig: Take 1,000 mg by mouth 2 times daily (with meals) methocarbamol (ROBAXIN) 750 MG tablet 04/25/2024 at PM Yes Yes Sig: Take 750 mg by mouth 3 times daily as needed for muscle spasms multivitamin w/minerals (THERA-VIT-M) tablet 04/25/2024 at AM Yes Yes Sig: Take 1 tablet by mouth daily omeprazole (PRILOSEC) [address] capsule 04/25/2024 at AM Yes Yes Sig: Take 20 mg by mouth daily pramipexole (MIRAPEX) 0.125 MG tablet 04/25/2024 at PM Yes Yes Sig: Take 0.25 mg by mouth At Bedtime triamterene-HCTZ (MAXZIDE-25) 37.5-25 MG tablet 04/25/2024 at AM Yes Yes Sig: Take 1 tablet by mouth every morning Facility-Administered Medications: None Physical Exam Vital Signs: Temp: 99.5 ??F (37.5 ??C) Temp src: Tympanic BP: (!) 161/104 Pulse: 105 Resp: 15 SpO2:94 % O2 Device: Nasal cannula Oxygen Delivery: 4 LPM Weight: 215 lbs 0 oz General: Pleasant 68-year-old woman lying in bed appears acutely ill CV: Tachycardic rate, regular rhythm, mild brawny edema in bilateral lower extremities Pulmonary: Clear to auscultation, diminished in bilateral bases. GI: Soft abdomen, tenderness to deep palpation in the left lower quadrant Medical Decision Making Data I have personally reviewed the following data over the past 24 hrs: 11.8 (H) \ 14.2 / 162 134 (L) 91 (L) 10.9 / 169 (H) 3.7 32 (H) 0.69 \ ALT: 30 AST: 32 AP: 78 TBILI: 0.8 ALB: 4.8 TOT PROTEIN: 7.8 LIPASE: N/A Trop: N/A BNP: 400 Procal: N/A CRP: N/A Lactic Acid: 1.6 Imaging results reviewed over the past 24 hrs: Recent Results (from the past 24 hour(s)) XR Chest Port 1 View Narrative Procedure:XR CHEST PORT 1 VIEW Clinical history:Female, 68 years, Fever Technique: Single view was obtained. Comparison: No relevant prior imaging. Findings: The cardiac silhouette appears mildly enlarged. The pulmonary vasculature is distended and indistinct The lungs demonstrate diffuse interstitial thickening with patchy areas of airspace consolidation. Costophrenic angles are sharp Bony structures are unremarkable. Impression Impression: Constellation of findings suggesting CHF with developing perihilar/ infrahilar pulmonary edema. No apparent pleural effusion. NIRMAL SHANNON MD documented in this encounter ED Notes * Tamara Johnson RN - 04/26/2024 1:30 PM CDT Notified of new alerts on ECG for a.fib * Tamara Johnson RN - 04/26/2024 11:57 AM CDT Nurse called into room she says she feels like she is burning up ice pack given and assured her shehas received tylenol * Tamara Johnson RN - 04/26/2024 10:37 AM CDT Lower back fentanyl patch 25mcg for chronic pain * Tamara Johnson RN - 04/26/2024 10:20 AM CDT Images from the original note were not included. PT here via private car from home. Pt states she started to not feel well last night with generalized weakness, fatigue, Shallow breathing, lethargy SAUNDERS and slow response er . Pt is A&O buto2 sats 81% RA on arrival. 4L placed NC. Pt has a 10/10 SAUNDERS that is dull and came on gradually. Theyhave not been around anyone sick that they know of. Here from out of town. BP (!) 195/103 Pulse 115 Temp (!) 100.9 ??F (38.3 ??C) (Tympanic) Resp 25 Ht 1.549 m (5' 1) Wt 97.5 kg (215 lb) SpO2 (!) 81% BMI 40.62 kg/m?? Triage Assessment (Adult) Row Name 04/26/24 1019 Triage Assessment Airway WDL WDL Respiratory WDL Respiratory WDL X;rhythm/pattern;expansion/retractions;nailbeds Rhythm/Pattern, Respiratory labored;shallow;shortness of breath;dyspnea upon exertion Expansion/Accessory Muscles/Retractions abdominal muscle use Skin Circulation/Temperature WDL Skin Circulation/Temperature WDL X pALE Cardiac WDL Cardiac WDL X;rhythm Cardiac Rhythm ST Peripheral/Neurovascular WDL Peripheral Neurovascular WDL WDL Cognitive/Neuro/Behavioral WDL Cognitive/Neuro/Behavioral WDL WDL * Connor Mast MD - 04/26/2024 10:04 AM CDT History Chief Complaint Patient presents with Altered Mental Status Shortness of Breath Fatigue Radha Romo is a 68 year old female with history including diabetes, CAD, hypertension, hypothyroidism, status post TAVR who presents with AMS, dyspnea, fever, cough. Last evening she had somenausea as well and current headache.. Denies chest pain or other pain, peripheral swelling, urinarysymptoms, diarrhea. No known sick contacts. Not on home oxygen. Allergies Allergen Reactions Cefazolin Anaphylaxis Tolerates cephalexin Ibuprofen Other (See Comments) and Unknown 6 unit upper GI bleed. Alendronate Other (See Comments) Tooth problem - possible osteonecrosis Blood-Group Specific Substance Other (See Comments) Patient has an Anti-Sulligent (K) antibody. Blood products may be delayed. Draw patient 24 hours prior to transfusion. Draw one red top and two purple top tubes for all type and screen orders. Patient has an anti-Sulligent antibody. Blood products may be delayed. Draw patient 24 hours prior to transfusion. For [facility] testing, draw one red top and two purple top tubes for all Type and Screen orders. Oxycodone-Acetaminophen Visual Disturbance Percocet [Oxycodone-Acetaminophen] Hallucination, tolerates [place] and plain APAP Salicylates Other (See Comments) and Unknown Contraindicated Patient Active Problem List Diagnosis Date Noted Pneumonia due to infectious organism, unspecified laterality, unspecified part of lung 04/26/2024 Priority: Medium Sepsis with encephalopathy without septic shock, due to unspecified organism (H) 04/26/2024 Priority: Medium Chronic, continuous use of opioids 04/26/2024 Priority: Medium Family history of colon cancer 04/26/2024 Priority: Medium Tibial plateau fracture, right, closed, with routine healing, subsequent encounter 04/26/2024 Priority: Medium Vitamin D deficiency 04/26/2024 Priority: Medium Severe sepsis (H) 04/26/2024 Priority: Medium 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 04/13/2022 Priority: Medium S/P TAVR (transcatheter aortic valve replacement) 01/09/2022 Priority: Medium CARA (obstructive sleep apnea) 12/11/2021 Priority: Medium Closed fracture of lateral portion of right tibial plateau 11/28/2021 Priority: Medium Status post total replacement of right hip 09/17/2021 Priority: Medium S/P total hip arthroplasty 09/16/2021 Priority: Medium Displaced comminuted supracondylar fracture without intercondylar fracture of right humerus, initial encounter for open fracture 04/08/2021 Priority: Medium Red blood cell antibody positive 04/08/2021 Priority: Medium Patient is noted to have a red cell alloantibody on a sample from 04/08/21. The antibody is directedagainst the [place] antigen. It is not difficult to screen for and fully crossmatch [place] negative RBCs(about 93% of donor population) but this will add 1-2 hours to provision of antigen negative fully crossmatched RBC units. Pedro Plata MD, 04/08/2021 10:44 AM Iron deficiency 02/12/2021 Priority: Medium Nephrolithiasis 04/03/2019 Priority: Medium Ascending aorta dilatation (H24) 04/08/2018 Priority: Medium CAD in [place] artery 10/15/2016 Priority: Medium Osteopenia 07/03/2016 Priority: Medium Type 2 diabetes mellitus without complication (H) 10/07/2015 Priority: Medium Lumbar spinal stenosis 02/11/2015 Priority: Medium Anxiety state 10/22/2009 Priority: Medium Dyslipidemia 07/16/2009 Priority: Medium HTN (hypertension) 07/16/2009 Priority: Medium Hypothyroidism 07/16/2009 Priority: Medium Compression fx, lumbar spine (H) 01/23/2009 Priority: Medium Depressive disorder 02/22/2007 Priority: Medium Restless legs syndrome (RLS) 02/22/2007 Priority: Medium Past Medical History: Diagnosis Date Aortic valve stenosis Arthritis Complication of anesthesia Coronary artery disease Depression Diabetes (H) Gastroesophageal reflux disease History of blood transfusion Hypertension Kidney stones Obese Other chronic pain Sleep apnea Past Surgical History: Procedure Laterality Date ARTHROPLASTY, HIP, TOTAL, DIRECT ANTERIOR APPROACH, USING HANA TABLE Right 09/16/2021 Procedure: RIGHT DIRECT ANTERIOR TOTAL HIP ARTHROPLASTY; Surgeon: Ehsan Dumont MD; Location: [facility] Main OR GASTRIC BYPASS No family history on file. Social History Tobacco Use Smoking status: Never Smokeless tobacco: Never Substance Use Topics Alcohol use: Never Drug use: Never Medications: No current outpatient medications on file. Review of Systems: See HPI for pertinent negatives and positives. All other systems reviewed and found to be negative. Physical Exam BP (!) 196/102 (BP Location: Right arm, Patient Position: Semi-Blum's, Cuff Size: Adult Regular) Pulse 105 Temp 98.8 ??F (37.1 ??C) (Tympanic) Resp 20 Ht 1.549 m (5' 1) Wt 99.6 kg (219 lb 9.6 oz) SpO2 92% BMI 41.49 kg/m?? General: awake, ill-appearing, comfortable HEENT: atraumatic Respiratory: normal effort, bibasilar crackles Cardiovascular: tachycardic, regular rhythm, no murmurs, radial pulses 2+ Abdomen: soft, nondistended, nontender Extremities: no deformities, tenderness, trace bilateral lower extremity edema Skin: warm, dry, no rashes Neuro: alert, no focal deficits Psych: appropriate mood and affect ED Course ED Course as of 04/26/241928Apr 26, 2024 1344 EKG: Sinus tachycardia 102 with PACs. No acute ischemic changes with no ST deviation or abnormal T wave inversion or hyperacute T waves. Results for orders placed or performed during the hospital encounter of 04/26/24 (from the past 24 hour(s)) CBC with platelets differential Narrative The following orders were created for panel order CBC with platelets differential. Procedure Abnormality Status --------- ------ CBC with platelets and d...[[id number]] Abnormal Final result Please view results for these tests on the individual orders. Comprehensive metabolic panel Result Value Ref Range Sodium 134 (L) 135 - 145 mmol/L Potassium 3.7 3.4 - 5.3 mmol/L Carbon Dioxide (CO2) 32 (H) 22 - 29 mmol/L Anion Gap 11 7 - 15 mmol/L Urea Nitrogen 10.9 8.0 - 23.0 mg/dL Creatinine 0.69 0.51 - 0.95 mg/dL GFR Estimate >90 >60 mL/min/1.73m2 Calcium 10.0 8.8 - 10.2 mg/dL Chloride 91 (L) 98 - 107 mmol/L Glucose 169 (H) 70 - 99 mg/dL Alkaline Phosphatase 78 40 - 150 U/L AST 32 0 - 45 U/L ALT 30 0 - 50 U/L Protein Total 7.8 6.4 - 8.3 g/dL Albumin 4.8 3.5 - 5.2 g/dL Bilirubin Total 0.8 <=1.2 mg/dL Lactic Acid Whole Blood with 1X Repeat in 2 HR when >2 Result Value Ref Range Lactic Acid, Initial 2.5 (H) 0.7 - 2.0 mmol/L CBC with platelets and differential Result Value Ref Range WBC Count 11.8 (H) 4.0 - 11.0 10e3/uL RBC Count 4.46 3.80 - 5.20 10e6/uL Hemoglobin 14.2 11.7 - 15.7 g/dL Hematocrit 42.6 35.0 - 47.0 % MCV 96 78 - 100 fL MCH 31.8 26.5 - 33.0 pg MCHC 33.3 31.5 - 36.5 g/dL RDW 13.3 10.0 - 15.0 % Platelet Count 162 150 - 450 10e3/uL % Neutrophils 87 % % Lymphocytes 6 % % Monocytes 6 % % Eosinophils 0 % % Basophils 0 % % Immature Granulocytes 0 % NRBCs per 100 WBC 0 <1 /100 Absolute Neutrophils 10.3 (H) 1.6 - 8.3 10e3/uL Absolute Lymphocytes 0.7 (L) 0.8 - 5.3 10e3/uL Absolute Monocytes 0.7 0.0 - 1.3 10e3/uL Absolute Eosinophils 0.0 0.0 - 0.7 10e3/uL Absolute Basophils 0.0 0.0 - 0.2 10e3/uL Absolute Immature Granulocytes 0.1 <=0.4 10e3/uL Absolute NRBCs 0.0 10e3/uL NT pro BNP Result Value Ref Range N terminal Pro BNP Inpatient 400 0 - 900 pg/mL Hemoglobin A1c Result Value Ref Range Hemoglobin A1C 6.2 4.0 - 6.2 % [place] Draw Narrative The following orders were created for panel order [place] Draw. Procedure Abnormality Status --------- ------ Extra Blue Top Tube[[id number]] Final result Extra Red Top Tube[[id number]] Final result Please view results for these tests on the individual orders. Extra Blue Top Tube Result Value Ref Range Hold Specimen JIC Extra Red Top Tube Result Value Ref Range Hold Specimen JIC TSH with free T4 reflex Result Value Ref Range TSH 2.17 0.30 - 4.20 uIU/mL Symptomatic Influenza A/B, RSV, & SARS-CoV2 PCR (COVID-19) Nose Specimen: Nose; Swab Result Value Ref Range Influenza A PCR Negative Negative Influenza B PCR Negative Negative RSV PCR Negative Negative SARS CoV2 PCR Negative Negative Narrative Testing was performed using the Xpert Xpress CoV2/Flu/RSV Assay on the [employer] GeneXpert Instrument. This test should be ordered [...] management. This test was validated by the [facility]. These laboratories are certified under the ClinicalLaboratory Improvement Amendments of 1988 (CLIA-88) as qualified to perform high complexity laboratory testing. Blood gas venous Result Value Ref Range pH Venous 7.35 7.32 - 7.43 pCO2 Venous 58 (H) 40 - 50 mm Hg pO2 Venous 36 25 - 47 mm Hg Bicarbonate Venous 32 (H) 21 - 28 mmol/L Base Excess/Deficit Venous 4.6 (H) -3.0 - 3.0 mmol/L FIO2 36 Oxyhemoglobin Venous 65 (L) 70 - 75 % O2 Sat, Venous 66.3 (L) 70.0 - 75.0 % Narrative In healthy individuals, oxyhemoglobin (O2Hb) and oxygen saturation (SO2) are approximately equal. In the presence of dyshemoglobins, oxyhemoglobin can be considerably lower than oxygen saturation. Extra Tube *Canceled* Narrative The following orders were created for panel order Extra Tube. Procedure Abnormality Status --------- ------ Extra Green Top ([place]...[[id number]] Please view results for these tests on the individual orders. XR Chest Port 1 View Narrative Procedure:XR CHEST PORT 1 VIEW Clinical history:Female, 68 years, Fever Technique: Single view was obtained. Comparison: No relevant prior imaging. Findings: The cardiac silhouette appears mildly enlarged. The pulmonary vasculature is distended and indistinct The lungs demonstrate diffuse interstitial thickening with patchy areas of airspace consolidation. Costophrenic angles are sharp Bony structures are unremarkable. Impression Impression: Constellation of findings suggesting CHF with developing perihilar/ infrahilar pulmonary edema. No apparent pleural effusion. NIRMAL SHANNON MD UA with Microscopic reflex to Culture Specimen: Urine, Catheter Result Value Ref Range Color Urine Light Yellow Colorless, Straw, Light Yellow, Yellow Appearance Urine Clear Clear Glucose Urine Negative Negative mg/dL Bilirubin Urine Negative Negative Ketones Urine Negative Negative mg/dL Specific [place] Urine 1.012 1.000 - 1.030 Blood Urine Negative Negative pH Urine 7.5 5.0 - 9.0 Protein Albumin Urine 200 (A) Negative mg/dL Urobilinogen Urine 2.0 Normal, 2.0 mg/dL Nitrite Urine Negative Negative Leukocyte Esterase Urine Negative Negative RBC Urine 1 <=2 /HPF WBC Urine 1 <=5 /HPF Narrative Urine Culture not indicated Lactic acid whole blood Result Value Ref Range Lactic Acid 1.6 0.7 - 2.0 mmol/L Glucose by meter Result Value Ref Range GLUCOSE BY METER POCT 219 (H) 70 - 99 mg/dL Medications levofloxacin (LEVAQUIN) infusion 750 mg (750 mg Intravenous $New Bag 04/26/24 1733) allopurinol (ZYLOPRIM) tablet 300 mg (300 mg Oral $Given 04/26/24 161) aspirin EC tablet 81 mg (81 mg Oral $Given 04/26/24 161) atorvastatin (LIPITOR) tablet 20 mg (has no administration in time range) buPROPion (WELLBUTRIN SR) 12 hr tablet 150 mg (has no administration in time range) escitalopram (LEXAPRO) tablet 20 mg (20 mg Oral $Given 04/26/24 161) gabapentin (NEURONTIN) tablet 1,200 mg (1,200 mg Oral $Given 04/26/24 163) HYDROcodone-acetaminophen (NORCO) 10-325 MG per tablet 1 tablet (has no administration in time range) losartan (COZAAR) tablet 25 mg (has no administration in time range) pantoprazole (PROTONIX) EC tablet 40 mg (40 mg Oral $Given 04/26/241610) pramipexole (MIRAPEX) tablet 0.25 mg (has no administration in time range) multivitamin w/minerals (THERA-VIT-M) tablet 1 tablet (has no administration in time range) methocarbamol (ROBAXIN) tablet 750 mg (has no administration in time range) lidocaine 1 % 0.1-1 mL (has no administration in time range) lidocaine (LMX4) cream (has no administration in time range) sodium chloride (PF) 0.9% PF flush 3 mL (0 mLs Intracatheter Not Given 04/26/241620) sodium chloride (PF) 0.9% PF flush 3 mL (has no administration in time range) senna-docusate (SENOKOT-S/PERICOLACE) 8.6-50 MG per tablet 1 tablet (has no administration in time range) Or senna-docusate (SENOKOT-S/PERICOLACE) 8.6-50 MG per tablet 2 tablet (has no administration in time range) calcium carbonate (TUMS) chewable tablet 1,000 mg (has no administration in time range) glucose gel 15-30 g (has no administration in time range) Or dextrose 50 % injection 25-50 mL (has no administration in time range) Or glucagon injection 1 mg (has no administration in time range) acetaminophen (TYLENOL) tablet 650 mg (has no administration in time range) Or acetaminophen (TYLENOL) Suppository 650 mg (has no administration in time range) melatonin tablet 3 mg (has no administration in time range) polyethylene glycol (MIRALAX) Packet 17 g (has no administration in time range) bisacodyl (DULCOLAX) suppository 10 mg (has no administration in time range) ondansetron (ZOFRAN ODT) ODT tab 4 mg (has no administration in time range) Or ondansetron (ZOFRAN) injection 4 mg (has no administration in time range) prochlorperazine (COMPAZINE) injection 5 mg (has no administration in time range) Or prochlorperazine (COMPAZINE) tablet 5 mg (has no administration in time range) Or prochlorperazine (COMPAZINE) suppository 12.5 mg (has no administration in time range) insulin aspart (NovoLOG) injection (RAPID ACTING) (1 Units Subcutaneous $Given 04/26/24 163) insulin aspart (NovoLOG) injection (RAPID ACTING) (has no administration in time range) naloxone (NARCAN) injection 0.2 mg (has no administration in time range) Or naloxone (NARCAN) injection 0.4 mg (has no administration in time range) Or naloxone (NARCAN) injection 0.2 mg (has no administration in time range) Or naloxone (NARCAN) injection 0.4 mg (has no administration in time range) enoxaparin ANTICOAGULANT (LOVENOX) injection 40 mg (has no administration in time range) fentaNYL (DURAGESIC) 25 mcg/hr 72 hr patch 1 patch (has no administration in time range) And fentaNYL (DURAGESIC) Patch in Place ( Transdermal Patch in Place 04/26/24 1622) doxycycline (VIBRAMYCIN) 100 mg vial to attach to NS 100 mL bag (0 mg Intravenous Stopped 04/26/24 1249) sodium chloride 0.9% BOLUS 1,000 mL (0 mLs Intravenous Stopped 04/26/24 1154) acetaminophen (TYLENOL) tablet 1,000 mg (1,000 mg Oral $Given 04/26/24 1117) HYDROcodone-acetaminophen (NORCO) 10-325 MG per tablet 1 tablet (1 tablet Oral $Given 04/26/24 1314) Assessments & Plan (with Medical Decision Making) I have reviewed the nursing notes. 68 year old female evaluated for mild confusion, cough, fever, dyspnea. Febrile, tachycardic, no oxygen requirement. Hemodynamically stable. Labs with leukocytosis 12 and mildly elevated lactate. Lactate normalized after recheck after small amount of fluids. She was given antibiotics with concern for pneumonia with respiratory symptoms and congested appearing lungs on chest x- ray. Given broad-spectrum antibiotics. Gentle fluids given with concern for trace lower extremity edema and bilateral crackles and new oxygen requirement. Blood cultures pending. Patient will need admission for further management including IV antibiotics, following cultures, and close monitoring. Dr. Dimas accepts admission. Patient stable at time of transfer of care. I have reviewed the findings, diagnosis, and plan with the patient. Current Discharge Medication List Final diagnoses: Pneumonia due to infectious organism, unspecified laterality, unspecified part of lung Sepsis with encephalopathy without septic shock, due to unspecified organism (H) 04/26/2024 [facility] Connor Mast MD 04/26/24 192 documented in this encounter Miscellaneous Notes * Plan of Care - Yonny Mullen RN - 04/29/2024 1:56 PM CDT NSG DISCHARGE NOTE Patient discharged to home at 1:57 PM via wheel chair. Accompanied by spouse and staff. Discharge instructions reviewed with patient and spouse, opportunity offered to ask questions. Prescriptions sent to patients preferred pharmacy. All belongings sent with patient. Yonny Mullen RN * Plan of Care - Yonny Mullen RN - 04/29/2024 12:08 PM CDT Patient is stable on room air at rest. Does drop 85-89% with ambulation. Patient has no increased [id number] with this range. Denies shortness of breathing. Crackles to bases of lungs this am,but has voided 2600 ml of clear yellow urine this am. Has been ambulating in room independently with standby assist to monitor SpO2. Of note patient has a 25-pack year smoking history, having quit [id number]. No diagnosed COPD or asthma that she is aware of. * Pharmacy - Discharge Medication Reconciliation and Education - Jose Martin Davis RP - 04/29/2024 11:53 AM CDT Pharmacy: Discharge Counseling and Medication Reconciliation Radha M Clarissa [address] [place] [phone] (home) 68 year old female PCP: Arnoldo Mejia Allergies: Cefazolin, Ibuprofen, Alendronate, Blood-group specific substance, Oxycodone-acetaminophen, Percocet [oxycodone-acetaminophen], and Salicylates Discharge Counseling: Pharmacist met with patient (and/or family) today to review the medication portion of the After Visit Summary (with an emphasis on NEW medications) and to address patient's questions/concerns. Summary of Education: Discussed the appropriate use of oral antibiotics with patient. Such as the importance of finishing the entire course and how to manage potential side effects such as diarrhea with OTC medications and to be on the lookout of intense unusual muscle pain. Patient is aware to space medication from pills containing calcium, iron, mag, zinc d/t decreased absorption and that sun sensitivity may occur. Patient educated that they may take with/without food but should avoid dairy products near administration. Patient is from out [facility] with Rx being sent to [facility] in [place]. Patient denied any questions. Materials Provided: MedCounselor sheets printed from Clinical Pharmacology on: [facility] Discharge Medication Reconciliation: It has been determined that the patient has an adequate supply of medications available or which can be obtained from the patient's preferred pharmacy, which HE/SHE has confirmed as: [facility] Thank you for the consult. Jose Martin Davis [facility]........April 29, 2024 11:54 AM * Plan of Care - Darling Sanchez RN - 04/29/2024 5:05 AM CDT VSS, afebrile, pain controlled with PRN medication and patch. Alert and oriented, IND in room. Saline locked. Problem: Adult Inpatient Plan of Care Goal: Plan of Care Review Outcome: Progressing Goal: Patient-Specific Goal (Individualized) me: Progressing Goal: Absence of Hospital-Acquired Illness or Injury Outcome: Progressing Intervention: Prevent Skin Injury Recent Flowsheet Documentation Taken 04/29/2024 0338 by Darling Sanchez RN Body Position: position changed independently Goal: Optimal Comfort and Wellbeing Outcome: Progressing Goal: Readiness for Transition of Care Outcome: Progressin * Plan of Care - Mihir Rodas RN - 04/28/2024 6:49 PM CDT No changes from previous shift. Patient was educated on the importance of using her IS and cough and deep breathing exercises. Patient has been on room air with sats around 90% patient was told to keep an eye on her O2 sats and to use IS and notify the RN if sats drop below 90% Goal Outcome Evaluation: Plan of Care Reviewed With: patient Overall Patient Progress: improvingOverall Patient Progress: improving * Plan of Care - Yonny Mullen RN - 04/28/2024 3:48 PM CDT VSS and recorded. Mild headache today improved with [place] this am. Patient has dry infrequent nonproductive cough. LS have crackle to bilateral bases. SpO2 92% on room air most recently. SpO2 droppedto 85% on room air while ambulating in hallway. Denies exertional SOB. Ambulating in room with walker independently. * Provider Notification - Blanca Pate RN - 04/28/2024 9:03 AM CDT 04/26/24 1510 Initial Information Patient Belongings remains with patient Patient Belongings Remaining with Patient clothing;jewelry;arellano/credit card;cell phone/electronics;purse/wallet;vision aids;other (see comments) (Cane, necklace, earings, rings, wallet, remain ith patient and ) Did you bring any home meds/supplements to the hospital? [facility] will make every effort per our policy to help keep your items safe while in the hospital. If you choose to keep any items at the bedside, we cannot be held responsible for any items that are lost or broken. List items sent to safe: NA I have reviewed my belongings list on admission and verify that it is correct. Patient signature Date/Time 2nd Staff person if patient unable to sign Date/Time I have received all my belongings noted above at discharge. Patient signature Date/Time Blanca Pate RN on 04/28/2024 at 9:03 AM * Plan of Care - Nicole Stacy RN - 04/28/2024 3:26 AM CDT Goal Outcome Evaluation: Plan of Care Reviewed With: patient Overall Patient Progress: improving BP (!) 164/74 (BP Location: Right arm, Patient Position: Semi-Blum's, Cuff Size: Adult Regular) Pulse 86 Temp 97.9 ??F (36.6 ??C) (Tympanic) Resp 18 Ht 1.549 m (5' 1) Wt 103.9 kg (229 lb1.6 oz) SpO2 92% BMI 43.29 kg/m?? A/O, pleasant and cooperative, uses call light appropriately. Up with SBA and walker to bathroom. Slight VELAZQUEZ. 1 LPM O2 via NC, sats low to mid 90s. LS with crackles in the bases. States she is feeling much better. 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 C/O chronic headache, received prn [place] X1 with good relief. * Plan of Care - Nicole Stacy RN - 04/27/2024 7:15 PM CDT SAFETY CHECKLIST ID Bands and Risk clasps correct and in place (DNR, Fall risk, Allergy, Latex, Limb): Yes All Lines Reconciled and labeled correctly: Yes Whiteboard updated:Yes Environmental interventions: Yes * Plan of Care - Yonny Mullen RN - 04/27/2024 4:53 PM CDT Assumed care of patient at 1300. VSS and recorded. Patient SpO2 stable on 1 LPM per NC 92-96%. Attempted wean to room air with a noted drop to 88-89%, was placed back 1 LPM per NC. Patient lung sounds are diminished. No cough noted. Patient reported headache after neb this afternoon and was treatedwith cold compress and acetaminophen. * Plan of Care - Dona Fulton RN - 04/27/2024 12:37 PM CDT Goal Outcome Evaluation: Plan of Care Reviewed With: patient Overall Patient Progress: improvingOverall Patient Progress: improving O2 saturation 92% on 1 LPM via nasal cannula. SOB with exertion, some wheezing noted in upper lobes, crackles in lower. Nares are irritated and bleeding, gave some lubrication and humidification added to nasal cannula. Ambulates with assist of 1 with walker. Left lower extremity +2 edema and reyna.Patient complains of severe headache, MD ordered Toradol. * Plan of Care - Nicole Stacy RN - 04/27/2024 6:17 AM CDT Goal Outcome Evaluation: Plan of Care Reviewed With: patient Overall Patient Progress: improving BP (!) 142/67 (BP Location: Right arm, Patient Position: Semi-Blum's, Cuff Size: Adult Regular) Pulse 93 Temp 98.8 ??F (37.1 ??C) (Tympanic) Resp 18 Ht 1.549 m (5' 1) Wt 103.9 kg (229 lb1.6 oz) SpO2 91% BMI 43.29 kg/m?? A/O, pleasant and cooperative. Using call light appropriately. LS with crackles in bases, VELAZQUEZ. On 4LPM O2 via NC, sats low to mid 90s. 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 Up with SBA of 1 with walker to bathroom. Voiding adequate amounts. C/O pain in head and back this shift. Has scheduled Neurontin and is wearing a Fentanyl patch to lower ba ck. Also received prn [place] and Tylenol with some relief. * Plan of Care - Nicole Stacy RN - 04/26/2024 8:00 PM CDT SAFETY CHECKLIST ID Bands and Risk clasps correct and in place (DNR, Fall risk, Allergy, Latex, Limb): Yes All Lines Reconciled and labeled correctly: Yes Whiteboard updated:Yes Environmental interventions: Yes * Pharmacy - Alina Lopez RP - 04/26/2024 3:13 PM CDT Pharmacy- Renal Dose Adjustment Patient Active Problem List Diagnosis S/P total hip arthroplasty Status post total replacement of right hip Pneumonia due to infectious organism, unspecified laterality, unspecified part of lung Sepsis with encephalopathy without septic shock, due to unspecified organism (H) Anxiety state Ascending aorta dilatation (H24) CAD in [place] artery Chronic, continuous use of opioids Closed fracture of lateral portion of right tibial plateau Compression fx, lumbar spine (H) Depressive disorder Displaced comminuted supracondylar fracture without intercondylar fracture of right humerus, initial encounter for open fracture 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 Dyslipidemia Family history of colon cancer HTN (hypertension) Hypothyroidism Iron deficiency Lumbar spinal stenosis Nephrolithiasis CARA (obstructive sleep apnea) Osteopenia Red blood cell antibody positive Restless legs syndrome (RLS) S/P TAVR (transcatheter aortic valve replacement) Tibial plateau fracture, right, closed, with routine healing, subsequent encounter Type 2 diabetes mellitus without complication (H) Vitamin D deficiency Severe sepsis (H) Relevant Labs: Recent Labs Lab Test 04/26/24 1030 09/19/21 0508 WBC 11.8* -- HGB 14.2 7.2* PLT 162 -- CrCl: 82 mL/min Intake/Output Summary (Last 24 hours) at 04/26/2024 1513 Last data filed at 04/26/2024 1444 Gross per 24 hour Intake -- Output 550 ml Net -550 ml Per Renal Dose Adjustment Protocol, will adjust: Enoxaparin to 40 mg subcut q12h for dx: VTE prophylaxis for CrCl greater than 30 mL/min and BMI greater than 40 Will continue to follow and make adjustments accordingly. Thank You. Alina Lopez RPH .................... 04/26/2024 3:13 PM * Pharmacy-Consult Note - Erika Hawkins RPH - 04/26/2024 2:01 PM CDT Pharmacy: Patient Own Medication Identification The requirements of Policy 13-03 from the Pharmacy Policy Manual have been met and the patient willbe allowed to use their own supply of: Fentanyl Patch- 0.25 mcg applied on patient's lower back. Erika Hawkins RPH has verified the name, dose, route, and directions for each medication. The integrity has been assessed and deemed safe. The product(s) have been labeled as being inspected by a pharmacist and the medication has been placed in the patient-specific bin in the medication room. Nursing will remove medication at the appropriately scheduled times and document the administrationon the MAR with the designation of patient own. Nursing to return medication back to patient at time of discharge. -Medication applied EDM OPERATOR, will leave on and change with inpatient supplies 04/28 (when next dose is due to be changed). Patient and aware of this. Erika Hawkins RPH .................... 04/26/2024 2:01 PM * Pharmacy-Admission Medication History - Erika Hawkins RPH - 04/26/2024 1:18 PM CDT Pharmacist Admission Medication History Admission medication history is complete. The information provided in this note is only as accurateas the sources available at the time of the update. Information Source(s): Patient, Family member, Hospital records, and [facility] via in-person Pertinent Information: -Patient's supplemented information for patient. Patient spoke clearly on pain medications and a handful of maintenance medications, but required prompting for others. Patient does have a 25 mcg fentanyl patch that was applied 04/25/24 that is changed Q72h, patient instructed to leave this patch on, but future patch changes will need to be made using hospital medication (patient assured we do have this patch.) -Patient also reports taking [place] at least two tablets three times a day when it is prescribed as 1 tablet Q4h. Added to list as prescribed Changes made to EDM OPERATOR medication list: Added: Robaxin [place] 10 Losartan Deleted: Cinnamon Bark Flexeril (replaced by Robaxin) Dilaudid Lisinopril Ketotifen Nystatin-Triamcinolone Senna-doc Changed: Fentanyl from 50 mcg patch -> 25 mcg ASA from BID -> once daily Gabapentin from 600 mg TID -> 1200 mg TID Prilosec from tablet -> capsule Added product strength to metformin APAP from 975 mg TID -> 500 mg TID PRN Allergies reviewed with patient and updates made in EHR: yes Medication History Completed By: Erika Hawkins RPH 04/26/2024 1:18 PM * Pharmacy-Admission Medication History - Erika Hawkins RPH - 04/26/2024 10:33 AM CDT Pharmacy Vancomycin Initial Note Date of Service April 26, 2024 Patient's 1955 68 year old, female Indication: Community Acquired Pneumonia and Sepsis Current estimated CrCl = CrCl cannot be calculated (Patient's most recent lab result is older than the maximum 365 days allowed.). Creatinine for last 3 days No results found for requested labs within last 3 days. Recent Vancomycin Level(s) for last 3 days No results found for requested labs within last 3 days. Vancomycin IV Administrations (past 72 hours) No vancomycin orders with administrations in past 72 hours. Nephrotoxins and other renal medications (From now, onward) Start Dose/Rate Route Frequency Ordered Stop 04/26/24 1100 vancomycin (VANCOCIN) 2,000 mg in 0.9% NaCl 500 mL intermittent infusion 2,000 mg over 2 Hours Intravenous ONCE 04/26/24 1032 Contrast Orders - past 72 hours (72h ago, onward) None Ins[employer] Prediction of Planned Initial Vancomycin Regimen Loading dose: 2000 mg at 11:00 04/26/2024. Regimen: 750 mg IV every 12 hours. Subsequent doses not entered at this time pending continuation of therapy and updated Scr. Start time: 23:00 on 04/26/2024 Exposure target: AUC24 (range)400-600 mg/L.hr AUC24,ss: 560 mg/L.hr Probability of AUC24 > 400: 75 % Ctrough,ss: 18.3 mg/L Probability of Ctrough,ss > 20: 45 % Probability of nephrotoxicity (Lodise MILLY 2009): 15 % Plan: Start vancomycin 2000 mg IV once Vancomycin monitoring method: AUC Vancomycin therapeutic monitoring goal: 400-600 mg*h/L Pharmacy will check vancomycin levels as appropriate in 1-3 Days. Serum creatinine levels will be ordered daily for the first week of therapy and at least twice weekly for subsequent weeks. Erika Hawkins RPH documented in this encounter Plan of Treatment Not on file documented as of this encounter Procedures Procedure Name Priority Date/Time Associated Diagnosis Comments GLUCOSE BY METER Routine 04/29/2024 11:1 5 AM CDT GLUCOSE BY METER Routine 04/29/2024 7:34 AM CDT EXTRA SERUM SEPARATOR TUBE (SST) Routine 04/29/2024 5:27 AM CDT EXTRA TUBE Routine 04/29/2024 5:27 AM CDT EXTRA BLUE TOP TUBE Routine 04/29/2024 5 :27 AM CDT PROCALCITONIN Routine 04/29/2024 5:27 AM [...] BLOOD CULTURE STAT 04/26/2024 10:46 AM CDT INFLUENZA A/B, RSV, & SARS-COV2 PCR STAT 04/26/2024 10:37 AM CDT MRSA MSSA PCR, NASAL SWAB STAT 04/26/2024 10:37 AM CDT EXTRA TUBE STAT 04/26/2024 10:32 AM CDT EXTRA RED TOP TUBE STAT 04/26/2024 10 :32 AM CDT EXTRA BLUE TOP TUBE STAT 04/26/2024 1 0:32 AM CDT PROCALCITONIN Add-On 04/26/2024 10:32 AM CDT TSH WITH FREE T4 REFLEX Add-On 04/26/2024 10:32 AM CDT LACTIC ACID WHOLE BLOOD WITH 1X REPEAT IN 2 HR WHEN >2 STAT 04/26/2024 10:30 AM CDT CBC WITH PLATELETS AND DIFFERENTIAL STAT 04/26/2024 10:30 AM CDT CBC WITH PLATELETS & DIFFERENTIAL STAT 04/26/2024 10:30 AM CDT NT PROBNP INPATIENT STAT 04/26/2024 1 0:30 AM CDT HEMOGLOBIN A1C Add-On 04/26/2024 10:30 AM CDT COMPREHENSIVE METABOLIC PANEL STAT 04/26/2024 10:30 AM CDT documented in this encounter Results * (ABNORMAL) Glucose by meter (04/29/2024 11:15 AM CDT) [facility] Signature GLUCOSE BY METER POCT 137(H) 70 - 99 mg/dL 04/29/2024 11:22 AM CDT LABORATORY Blood, Capillary BLOOD SPECIMEN / Unknown 04/29/2024 11:15 AM CDT 04/29/2024 11:22 AM CDT Chris Ford MD LAB - BEAKER POCT LABORATORY [facility] [address] [place] [address], [place] [phone] * (ABNORMAL) Glucose by meter (04/29/2024 7:34 AM CDT) GLUCOSE BY METER POCT 125(H) 70 - 99 mg/dL 04/29/2024 7:41 AM CDT LABORATORY Blood, Capillary BLOOD SPECIMEN / Unknown 04/29/2024 7:34 AM CDT 04/29/2024 7:41 AM CDT Chris Ford MD LAB - BEAKER POCT Performing Organization Address [facility]/ZIP Co de Phone Number LABORATORY [facility] [address] [facility] [facility] [place] [address], [place] [phone] * Extra Serum Separator Tube (SST) (04/29/2024 5:27 AM CDT) Hold Specimen JIC 04/29/2024 6:46 AM CDT LABORATORY Blood STRUCTURE OF RIGHT UPPER LIMB / Unknown Venipuncture / Unknown 04/29/2024 5:27 AM CDT 04/29/2024 5:42 AM CDT Chris Ford MD LAB - BLOOD ORDERABL ES LABORATORY [facility] [address] [facility] [place] [address], [place] [phone] * Extra Blue Top Tube (04/29/2024 5:27 AM CDT) Hold Specimen JIC 04/29/2024 6:46 AM CDT LABORATORY Blood STRUCTURE OF RIGHT UPPER LIMB / Unknown Venipuncture / Unknown 04/29/2024 5:27 AM CDT 04/29/2024 5:43 AM CDT Chris Ford MD LAB - BLOOD ORDERABL ES LABORATORY [facility] [address] [place] [address], [facility] [phone] * Procalcitonin (04/29/2024 5:27 AM CDT) Procalcitonin 0.40 <0.50 ng/mL 04/29/2024 6:26 AM [...] See Procalcitonin Guidance document for more details. [email or web address] Factors that may affect PCT levels (not [...] MD LAB - BLOOD ORDERABL ES LABORATORY [facility] [address] [place] [address], [facility] [phone] * (ABNORMAL) Basic metabolic panel (04/29/2024 5:27 AM CDT) Sodium 136 135 - 145 mmol/L 04/29/2024 6:21 AM [facility] Potassium 3.8 3.4 - 5.3 mmol/L 04/29/2024 6:21 AM [facility] Chloride 96(L) 98 - 107 mmol/L 04/29/2024 6:21 AM [facility] Carbon Dioxide (CO2) 33(H) 22 - 29 mmol/L 04/29/2024 6:21 AM [facility] Anion Gap 7 7 - 15 mmol/L 04/29/2024 6:21 AM [facility] Urea Nitrogen 17.9 8.0 - 23.0 mg/dL 04/29/2024 6:21 AM [facility] Creatinine 0.77 0.51 - 0.95 mg/dL 04/29/2024 6:21 AM [facility] GFR Estimate 83 >60 mL/min/1.7 3m2 04/29/2024 6:21 AM [facility] Comment:eGFR calculated usin 2020 CKD-EPI equation. Calcium 9.1 8.8 - 10.2 mg/dL 04/29/2024 6:21 AM [facility] Glucose 134(H) 70 - 99 mg/dL 04/29/2024 6:21 AM CDT LABORATORY Blood STRUCTURE OF RIGHT UPPER LIMB / Unknown Venipuncture / Unknown 04/29/2024 5:27 AM CDT 04/29/2024 5:43 AM CDT Chris Ford MD LAB - BLOOD ORDERABL ES Performing Organization Address City/[facility] Co de Phone Number LABORATORY [facility] [address] [place] [address], [facility] [phone] * (ABNORMAL) CBC with platelets (04/29/2024 5:27 AM CDT) [facility] WBC Count 6.0 4.0 - 11.0 [...] MD LAB - BLOOD ORDERABL ES LABORATORY [facility] [address] [place] [address] [place] [address], [facility] [phone] * (ABNORMAL) Glucose by meter (04/28/2024 9:21 PM CDT) GLUCOSE BY METER POCT 139(H) 70 - 99 mg/dL 04/28/2024 9:28 PM CDT LABORATORY Blood, Capillary BLOOD SPECIMEN / Unknown 04/28/2024 9:21 PM CDT 04/28/2024 9:28 PM CDT Chris PORRAS POCT Performing Organization Address [facility]/ZIP Co de Phone Number [facility] [address] [place] [address], [facility] [phone] * (ABNORMAL) Glucose by meter (04/28/2024 4:56 PM CDT) GLUCOSE BY METER POCT 124(H) 70 - 99 mg/dL 04/28/2024 5:03 PM CDT LABORATORY Blood, Capillary BLOOD SPECIMEN / Unknown 04/28/2024 4:56 PM CDT 04/28/2024 5:03 PM CDT Chris PORRAS POCT LABORATORY [facility] [address] [place] [address] [place] [address], [facility] [phone] * (ABNORMAL) Glucose by meter (04/28/2024 11:32 AM CDT) GLUCOSE BY METER POCT 175(H) 70 - 99 mg/dL 04/28/2024 11:39 AM CDT LABORATORY Blood, Capillary BLOOD SPECIMEN / Unknown 04/28/2024 11:32 AM CDT 04/28/2024 11:39 AM CDT Chris Ford MD [facility] POCT LABORATORY [facility] [address] [place] [address], [facility] [phone] * (ABNORMAL) Procalcitonin (04/28/2024 5:55 AM CDT) Procalcitonin 0.59(H) <0.50 ng/mL 04/28/2024 8:14 AM CDT LABORATORY Comment: Interpretation and Recommendations [...] See Procalcitonin Guidance document for more details. [email or web address]/[email or web address] Factors that may affect PCT levels (not [...] immunosuppression, and cystic fibrosis. Blood STRUCTURE OF LEFT UPPER LIMB / Unknown Venipuncture / Unknown 04/28/2024 5:55 AM CDT 04/28/2024 6:16 AM CDT Chris Ford MD LAB - BLOOD ORDERABL ES LABORATORY [facility] [address] [place] [address], [facility] [phone] * (ABNORMAL) Basic metabolic panel (04/28/2024 5:55 AM CDT) Sodium 132(L) 135 - 145 mmol/L 04/28/2024 6:52 AM [facility] Potassium 3.6 3.4 - 5.3 mmol/L 04/28/2024 6:52 AM [facility] Chloride 93(L) 98 - 107 mmol/L 04/28/2024 6:52 AM [facility] Carbon Dioxide (CO2) 32(H) 22 - 29 mmol/L 04/28/2024 6:52 AM [facility] Anion Gap 7 7 - 15 mmol/L 04/28/2024 6:52 AM [facility] Urea Nitrogen 14.6 8.0 - 23.0 mg/dL 04/28/2024 6:52 AM [facility] Creatinine 0.76 0.51 - 0.95 mg/dL 04/28/2024 6:52 AM [facility] GFR Estimate 84 >60 mL/min/1.7 3m2 04/28/2024 6:52 AM [facility] Comment:eGFR calculated usin g 2020 CKD-EPI equation. Calcium 8.6(L) 8.8 - 10.2 mg/dL 04/28/2024 6:52 AM [facility] Glucose 149(H) 70 - 99 mg/dL 04/28/2024 6:52 AM [facility] Blood STRUCTURE OF LEFT UPPER LIMB / Unknown Venipuncture / Unknown 04/28/2024 5:55 AM CDT 04/28/2024 6:16 AM CDT Chris Ford MD LAB - BLOOD ORDERABL ES LABORATORY [facility] [address] [place] [address], [facility] [phone] * (ABNORMAL) CBC with platelets (04/28/2024 5:55 AM CDT) [facility] WBC Count 8.5 4.0 - 11.0 10e3/uL 04/28/2024 6:20 AM CDT LABORATORY RBC Count 3.34(L) 3.80 - 5.20 10e6/uL 04/28/2024 6:20 AM CDT LABORATORY Hemoglobin 10.5(L) 11.7 - 15.7 g/dL 04/28/2024 6:20 AM CDT LABORATORY Hematocrit 31.5(L) 35.0 - 47.0 % 04/28/2024 6:20 AM CDT LABORATORY MCV 94 78 - 100 fL 04/28/2024 6:20 AM CDT LABORATORY MCH 31.4 26.5 - 33.0 pg 04/28/2024 6:20 AM CDT LABORATORY MCHC 33.3 31.5 - 36.5 g/dL 04/28/2024 6:20 AM CDT LABORATORY RDW 13.2 10.0 - 15.0 % 04/28/2024 6:20 AM CDT LABORATORY Platelet Count 139(L) 150 - 450 10e3/uL 04/28/2024 6:20 AM CDT LABORATORY Blood STRUCTURE OF LEFT UPPER LIMB / Unknown Venipuncture / Unknown 04/28/2024 5:55 AM CDT 04/28/2024 6:15 AM CDT Chris Ford MD LAB - BLOOD ORDERABL ES LABORATORY [facility] [address] [place] [address], [place] [phone] * (ABNORMAL) Glucose by meter (04/27/2024 9:55 PM CDT) GLUCOSE BY METER POCT 110(H) 70 - 99 mg/dL 04/27/2024 10:01 PM CDT LABORATORY Blood, Capillary BLOOD SPECIMEN / Unknown 04/27/2024 9:55 PM CDT 04/27/2024 10:01 PM CDT Chris RANDHAWA - [facility]ERN POCT LABORATORY [facility] [address] [facility] [facility] [place] [address], [facility] [phone] * (ABNORMAL) Glucose by meter (04/27/2024 4:12 PM CDT) GLUCOSE BY METER POCT 143(H) 70 - 99 mg/dL 04/27/2024 4:19 PM CDT LABORATORY Blood, Capillary BLOOD SPECIMEN / Unknown 04/27/2024 4:12 PM CDT 04/27/2024 4:19 PM CDT Chris PORRAS POCT LABORATORY [facility] [address] [facility] [place] [address], [place] [phone] * (ABNORMAL) Glucose by meter (04/27/2024 11:17 AM CDT) GLUCOSE BY METER POCT 167(H) 70 - 99 mg/dL 04/27/2024 11:23 AM CDT LABORATORY Blood, Capillary BLOOD SPECIMEN / Unknown 04/27/2024 11:17 AM CDT 04/27/2024 11:23 AM CDT Chris PORRAS POCT LABORATORY [facility] [address] [place] [address] [phone] * Legionella Urinary Antigen and Streptococcus pneumoniae antigen (04/27/2024 9:33 AM CDT) Pathologist [facility] [place] Legionella pneumophila serogroup 1 urinary antigen Negative [...] [facility] Inf. Diseases Diag. Lab [address] [facility], [address] [place] [address], [facility] * (ABNORMAL) Basic metabolic panel (04/27/2024 7:52 AM CDT) Pathologist [facility] [place] Sodium 130(L) 135 - 145 mmol/L 04/27/2024 8:38 AM CDT LABORATORY Potassium 3.7 3.4 - 5.3 mmol/L 04/27/2024 8:38 AM CDT [facility] LABORATORY Chloride 90(L) 98 - 107 mmol/L 04/27/2024 8:38 AM CDT LABORATORY Carbon Dioxide (CO2) 33(H) 22 - 29 mmol/L 04/27/2024 8:38 AM CDT [facility] LABORATORY Anion Gap 7 7 - 15 mmol/L 04/27/2024 8:38 AM CDT LABORATORY Urea Nitrogen 13.3 8.0 - 23.0 mg/dL 04/27/2024 8:38 AM CDT [facility] LABORATORY Creatinine 0.70 0.51 - 0.95 mg/dL 04/27/2024 8:38 AM CDT [facility] LAB[facility]ATORY GFR Estimate >90 >60 mL/min/1.7 3m2 04/27/2024 8:38 AM CDT [facility] LABORATORY Comment:eGFR calculated usin 2020 CKD-EPI equation. Calcium 9.2 8.8 - 10.2 mg/dL 04/27/2024 8:38 AM CDT [facility] LABORATORY Glucose 139(H) 70 - 99 mg/dL 04/27/2024 8:38 AM CDT [facility] LABORATORY Blood STRUCTURE OF LEFT UPPER LIMB / Unknown Venipuncture / Unknown 04/27/2024 7:52 AM CDT 04/27/2024 7:55 AM CDT Chris Ford MD LAB - BLOOD ORDERABL ES LABORATORY [facility] [address] [place] [address] [phone] * (ABNORMAL) CBC with platelets (04/27/2024 7:52 AM CDT) WBC Count 12.0(H) 4.0 - 11.0 10e3/uL 04/27/2024 7:57 AM CDT [facility] LABORATORY RBC Count 3.66(L) 3.80 - 5.20 10e6/uL 04/27/2024 7:57 AM CDT [facility] LABORATORY Hemoglobin 11.5(L) 11.7 - 15.7 g/dL 04/27/2024 7:57 AM CDT [facility] LABORATORY Hematocrit 35.0 35.0 - 47.0 % 04/27/2024 7:57 AM CDT [facility] LABORATORY MCV 96 78 - 100 fL 04/27/2024 7:57 AM CDT [facility] LABORATORY MCH 31.4 26.5 - 33.0 pg 04/27/2024 7:57 AM CDT [facility] LAB[facility]ATORY MCHC 32.9 31.5 - 36.5 g/dL 04/27/2024 7:57 AM CDT [facility] LABORATORY RDW 13.3 10.0 - 15.0 % 04/27/2024 7:57 AM CDT LABORATORY Platelet Count 140(L) 150 - 450 10e3/uL 04/27/2024 7:57 AM CDT LABORATORY Blood STRUCTURE OF LEFT UPPER LIMB / Unknown Venipuncture / Unknown 04/27/2024 7:52 AM CDT 04/27/2024 7:55 AM CDT Chris Ford MD LAB - BLOOD ORDERABL ES LABORATORY [facility] [address] [place] [address], [place] [phone] * (ABNORMAL) Glucose by meter (04/27/2024 7:31 AM CDT) [facility] GLUCOSE BY METER POCT 139(H) 70 - 99 mg/dL 04/27/2024 7:38 AM CDT LABORATORY Blood, Capillary BLOOD SPECIMEN / Unknown 04/27/2024 7:31 AM CDT 04/27/2024 7:38 AM CDT Chris Ford MD LAB - BEAKER POCT LABORATORY [facility] [address] [place] [address], [facility] [phone] * XR Chest 2 Views (04/27/2024 7:03 [...] IMG DIAGNOSTIC IMAGI NG ORDERABLES * (ABNORMAL) Glucose by meter (04/26/2024 10:03 PM CDT) GLUCOSE BY METER POCT 136(H) 70 - 99 mg/dL 04/26/2024 10:09 PM CDT LABORATORY Blood, Capillary BLOOD SPECIMEN / Unknown 04/26/2024 10:03 PM CDT 04/26/2024 10:09 PM CDT Mike RANDHAWA - [facility] POCT LABORATORY [facility] [address] [place] [address], [facility] [phone] * (ABNORMAL) Glucose by meter (04/26/2024 4:09 PM CDT) GLUCOSE BY METER POCT 219(H) 70 - 99 mg/dL 04/26/2024 4:16 PM CDT LABORATORY Blood, Capillary BLOOD SPECIMEN / Unknown 04/26/2024 4:09 PM CDT 04/26/2024 4:16 PM CDT Mike Gill MD LAB - BEAKER POCT LABORATORY [facility] [address] [place] [address], [facility] [phone] * EKG 12-lead, tracing only (04/26/2024 1:39 PM CDT) Systolic Blood Pressure mmHg RADIOLOGY RESULTS Diastolic Blood Pressure mmHg RADIOLOGY RESULTS Ventricular Rate 102 BPM RAD IOLOGY RESULTS Atrial Rate 102 BPM RADIOLOG Y RESULTS NH Interval 190 ms RADIOLOG Y RESULTS QRS Duration 106 ms RADIOLO GY RESULTS QT 386 ms RADIOLOGY RESULTS QTc 503 ms RADIOLOGY RESULTS P [place] 33 degrees RADIOLOGY RESULTS R AXIS 17 degrees RADIOLOGY RESULTS T [place] 42 degrees RADIOLOGY RESULTS Interpretation ECG wandering baseline limits interpretation supraventricular rhythm. No previous ECGs available Confirmed by MD MANFRED, [facility] ([id number]) on 04/28/2024 10:10:35 AM RADIOLOGY RESULTS 04/26/2024 [...] MD LAB - BLOOD ORDERABL ES LABORATORY [facility] [address] [place] [address], [facility] [phone] * (ABNORMAL) UA with Microscopic reflex to [...] mg/dL 04/26/2024 11:18 AM CDT LABORATORY Specific [place] Urine 1.012 1.000 - 1.030 04/26/2024 11:18 [...] 11:09 AM CDT 04/26/2024 11:13 AM CDT [facility] LABORATORY - 04/26/2024 11:18 AM CDT Urine Culture not indicated Connor Mast MD LAB - URINE ORDERABL ES LABORATORY [facility] [address] [facility] [place] [address] [phone] * XR Chest Port 1 View (04/26/2024 [...] effusion. NIRMAL SHANNON MD Connor Mast MD [facility] [place] [facility] IMAGI NG ORDERABLES * (ABNORMAL) Blood [...] Mast MD LAB - BLOOD ORDERABL ES [facility] [address] [place] [address], [facility] [phone] * Blood Culture Peripheral Blood (04/26/2024 10:46 AM CDT) Culture No Growth 05/01/2024 11:01 AM CDT LABORATORY Blood BLOOD SPECIMEN / Unknown Venipuncture / Unknown 04/26/2024 10:46 AM CDT 04/26/2024 10:57 AM CDT Connor Mast MD LAB - MICRO GENERAL ORDERABLES [facility] [address] [place] [address], [facility] [phone] * Blood Culture Peripheral Blood (04/26/2024 10:46 AM CDT) Culture No Growth 05/01/2024 11:01 AM CDT LABORATORY Blood BLOOD SPECIMEN / Unknown Venipuncture / Unknown 04/26/2024 10:46 AM CDT 04/26/2024 10:57 AM CDT Connor Mast MD LAB - MICRO GENERAL ORDERABLES LABORATORY [facility] [address] [place] [address], [facility] [phone] * MRSA/MSSA PCR (04/26/2024 10:37 AM CDT) [...] SA Nasal Complete assay performed in the [employer]?? Dx System is a qualitative in vitro [...] [facility] Inf. Diseases Diag. Lab [address] [facility], [address] [place] [address], [facility] * Symptomatic Influenza A/B, RSV, & SARS-CoV2 [...] the Xpert Xpress CoV2/Flu/RSV Assay on the [employer] GeneXpert Instrument. This test should be ordered [...] management. This test was validated by the [facility]. These laboratories are certified under the Clinical Laboratory Improvement Amendments of 1988 (CLIA-88) as qualified to perform high complexity laboratory testing. Connor Mast MD LAB - MICRO GENERAL ORDERABLES LABORATORY [facility] [address] [place] [address], [facility] [phone] * (ABNORMAL) Procalcitonin (04/26/2024 10:32 AM CDT) Pathologist [facility] [place] Procalcitonin 0.55(H) <0.50 ng/mL 04/27/2024 8:25 AM CDT LABORATORY Comment: Interpretation and Recommendations [...] See Procalcitonin Guidance document for more details. [email or web address]/[email or web address] ibiot [email or web address] Factors that may affect PCT levels (not [...] pediatrics, severe immunosuppression, and cystic fibrosis. Blood BLOOD SPECIMEN / Unknown Venipuncture / Unknown 04/26/2024 10:32 AM CDT 04/26/2024 10:34 AM CDT Chris Ford MD LAB - BLOOD ORDERABL ES LABORATORY [facility] [address] [place] [address], [facility] [phone] * TSH with free T4 reflex (04/26/2024 10:32 AM CDT) TSH 2.17 0.30 - 4.20 uIU/mL 04/26/2024 1:49 PM CDT LABORATORY Blood BLOOD SPECIMEN / Unknown Venipuncture / Unknown 04/26/2024 10:32 AM CDT 04/26/2024 10:34 AM CDT Mike Gill MD LAB - BLOOD ORDERABL ES LABORATORY [facility] [address] [place] [address], [facility] [phone] * Extra Red Top Tube (04/26/2024 10:32 AM CDT) Hold Specimen [facility] 04/26/2024 11:47 AM CDT LABORATORY Blood BLOOD SPECIMEN / Unknown Venipuncture / Unknown 04/26/2024 10:32 AM CDT 04/26/2024 10:34 AM CDT Connor Mast MD LAB - BLOOD ORDERABL ES LABORATORY [facility] [address] [place] [address], [facility] [phone] * Extra Blue Top Tube (04/26/2024 10:32 AM CDT) Hold Specimen [facility] 04/26/2024 11:47 AM CDT LABORATORY Blood BLOOD SPECIMEN / Unknown Venipuncture / Unknown 04/26/2024 10:32 AM CDT 04/26/2024 10:34 AM CDT Connor Mast MD LAB - BLOOD ORDERABL ES LABORATORY [facility] [address] [place] [address], [facility] [phone] * Hemoglobin A1c (04/26/2024 10:30 AM CDT) Pathologist [facility] [place] Hemoglobin A1C 6.2 4.0 - 6.2 % 04/26/2024 1:31 PM CDT LABORATORY Blood BLOOD SPECIMEN / Unknown Venipuncture / Unknown 04/26/2024 10:30 AM CDT 04/26/2024 10:34 AM CDT Mike Gill MD LAB - BLOOD ORDERABL ES LABORATORY [facility] [address] [facility] [place] [address], [facility] [phone] * NT pro BNP (04/26/2024 10:30 AM CDT) Pathologist [facility] [place] N terminal Pro BNP Inpatient 400 0 [...] MD LAB - BLOOD ORDERABL ES LABORATORY [facility] [address] [facility] [place] [address], [facility] [phone] * (ABNORMAL) CBC with platelets and differential (04/26/2024 10:30 AM CDT) [facility] WBC Count 11.8(H) 4.0 - 11.0 10e3/uL 04/26/2024 10:39 AM CDT [facility] LABORATORY RBC Count 4.46 3.80 - 5.20 10e6/uL 04/26/2024 10:39 AM CDT [facility] LABORATORY Hemoglobin 14.2 11.7 - 15.7 g/dL [...] - 0.7 10e3/uL 04/26/2024 10:39 AM CDT LABORATORY Absolute Basophils 0.0 0.0 - 0.2 10e3/uL 04/26/2024 10:39 AM CDT LABORATORY Absolute Immature Granulocytes 0.1 <=0.4 10e3/uL 04/26/2024 10:39 AM CDT LABORATORY Absolute NRBCs 0.0 10e3/uL 04/26/2024 10:39 AM CDT LABORATORY Blood BLOOD SPECIMEN / Unknown Venipuncture / Unknown 04/26/2024 10:30 AM CDT 04/26/2024 10:34 AM CDT Connor Mast MD LAB - BLOOD ORDERABL ES LABORATORY [facility] [address] [facility] [place] [address], [place] [phone] * (ABNORMAL) Lactic Acid Whole Blood with 1X Repeat in 2 HR when >2 (04/26/2024 10:30 AM CDT) Lactic Acid, Initial 2.5(H) 0.7 - 2.0 mmol/L 04/26/2024 10:39 AM CDT LABORATORY Blood BLOOD SPECIMEN / Unknown Venipuncture / Unknown 04/26/2024 10:30 AM CDT 04/26/2024 10:34 AM CDT Connor Mast MD LAB - BLOOD ORDERABL ES LABORATORY [facility] [address] [place] [address], [place] [phone] * (ABNORMAL) Comprehensive metabolic panel (04/26/2024 10:30 AM CDT) Sodium 134(L) 135 - 145 mmol/L 04/26/2024 11:00 AM CDT LABORATORY Potassium 3.7 3.4 - 5.3 mmol/L 04/26/2024 11:00 AM CDT LABORATORY Carbon Dioxide (CO2) 32(H) 22 - 29 mmol/L 04/26/2024 11:00 AM [facility] Anion Gap 11 7 - 15 mmol/L 04/26/2024 11:00 AM [facility] Urea Nitrogen 10.9 8.0 - 23.0 mg/dL 04/26/2024 11:00 AM [facility] Creatinine 0.69 0.51 - 0.95 mg/dL 04/26/2024 11:00 AM [facility] GFR Estimate >90 >60 mL/min/1. 73m2 04/26/2024 11:00 AM [facility] Comment:eGFR calculated us2020 CKD-EPI equation. Calcium 10.0 8.8 - 10.2 mg/dL 04/26/2024 11:00 AM [facility] Chloride 91(L) 98 - 107 mmol/L 04/26/2024 11:00 AM [facility] Glucose 169(H) 70 - 99 mg/dL 04/26/2024 11:00 AM [facility] Alkaline Phosphatase 78 40 - 150 U/L 04/26/2024 11:00 AM [facility] AST 32 0 - 45 U/L 04/26/2024 11:00 AM [facility] Comment:Reference intervals for this test were updated on 04/05/2023 to more accurately reflect our healthy population. There may be differences in the flagging of prior results with similar values performed with this method. Interpretation of those prior results can be made in the context of the updated reference intervals. ALT 30 0 - 50 U/L 04/26/2024 11:00 AM [facility] Comment:Reference intervals for this test were updated on 04/05/2023 to more accurately reflect our healthy population. There may be differences in the flagging of prior results with similar values performed with this method. Interpretation of those prior results can be made in the context of the updated reference intervals. Protein Total 7.8 6.4 - 8.3 g/dL 04/26/2024 11:00 AM [facility] Albumin 4.8 3.5 - 5.2 g/dL 04/26/2024 11:00 AM [facility] Bilirubin Total 0.8 <=1.2 mg/dL 04/26/2024 11:00 AM [facility] Blood BLOOD SPECIMEN / Unknown Venipuncture / Unknown 04/26/2024 10:30 AM CDT 04/26/2024 10:34 AM CDT Connor Mast MD LAB - BLOOD ORDERABL ES LABORATORY [facility] [address] [place] [address], [facility] [phone] documented in this encounter Visit Diagnoses Diagnosis Pneumonia due to infectious organism, unspecified laterality, unspecified part of lung Sepsis with encephalopathy without septic shock, due to unspecified organism (H) Pneumonia due to infectious organism, unspecified laterality, unspecified part of lung Sepsis with encephalopathy without septic shock, due to unspecified organism (H) Anxiety state Anxiety state, unspecified CAD in [place] artery Coronary atherosclerosis of [place] coronary artery Chronic, continuous use of opioids Opioid type dependence, continuous Compression fx, lumbar spine (H) Closed fracture of lumbar vertebra without mention of spinal cord injury Depressive disorder Depressive disorder, not elsewhere classified Dyslipidemia Other and unspecified hyperlipidemia HTN (hypertension) Unspecified essential hypertension Hypothyroidism Unspecified hypothyroidism Lumbar spinal stenosis Spinal stenosis, lumbar region, without neurogenic claudication Type 2 diabetes mellitus without complication (H) documented in this encounter Administered Medications Inactive Administered Medications - up to 3 most recent administrations Medication Order MAR Action Action Date Dose Rate Site acetaminophen (TYLENOL) Suppository 650 mg 650 mg, Rectal, EVERY 4 HOURS PRN, mild pain, other, and adjunct with moderate or severe pain or per patient request, Starting on Wed04/26/24 at 1432, Alternate with ibuprofen if ordered. Maximum acetaminophen dose from all sources = 75 mg/kg/day not to exceed 4 grams/day. acetaminophen (TYLENOL) tablet 1,000 mg 1,000 mg, Oral, ONCE, On Wed04/26/24 at 1115, For 1 dose, Maximum acetaminophen dose from all sources = 75 mg/kg/day not to exceed 4 gram $Given 04/26/2024 11:17 AM CDT 1,000 mg acetaminophen (TYLENOL) tablet 650 mg 650 mg, Oral, EVERY 4 HOURS PRN, mild pain, other, and adjunct with moderate or severe pain or per patient request, Starting on Wed04/26/24 at 1432, Alternate with ibuprofen if ordered. Maximum acetaminophen dose from all sources = 75 mg/kg/day not to exceed 4 grams/day. $Given 04/28/2024 9:59 PM CDT 650 mg $Given 04/27/2024 4:22 PM CDT 650 mg $Given 04/27/2024 7:41 AM CDT 650 mg allopurinol (ZYLOPRIM) tablet 300 mg 300 mg, Oral, DAILY, First dose on Wed04/26/24 at 1500 $Given 04/29/2024 9:44 AM CDT 300 mg $Given 04/28/2024 10:04 AM CDT 300 mg $Given 04/27/2024 9:18 AM CDT 300 mg aspirin EC tablet 81 mg 81 mg, Oral, DAILY, First dose on Wed04/26/24 at 1500, DO NOT CRUSH. $Given 04/28/2024 10:04 AM CDT 81 mg $Given 04/27/2024 9:18 AM CDT 81 mg $Given 04/26/2024 4:11 PM CDT 81 mg atorvastatin (LIPITOR) tablet 20 mg 20 mg, Oral, AT BEDTIME, First dose on Wed04/26/24 at 2200 $Given 04/28/2024 10:00 PM CDT 20 mg $Given 04/27/2024 9:34 PM CDT 20 mg $Given 04/26/2024 9:56 PM CDT 20 mg budesonide (PULMICORT) neb solution 0.5 mg 0.5 mg, Nebulization, 2 TIMES DAILY RT, First dose on Wed04/28/24 at 1000 $Given 04/29/2024 6:09 AM CDT 0.5 mg $Given 04/28/2024 6:18 PM CDT 0.5 mg $Given 04/28/2024 10:46 AM CDT 0.5 mg buPROPion (WELLBUTRIN SR) 12 hr tablet 150 mg 150 mg, Oral, 2 TIMES DAILY, First dose on Wed04/26/24 at 2200, DO NOT CRUSH. $Given 04/29/2024 9:44 AM CDT 150 mg $Given 04/28/2024 10:00 PM CDT 150 mg $Given 04/28/2024 10:04 AM CDT 150 mg calcium carbonate (TUMS) chewable tablet 1,000 mg 1,000 mg, Oral, 4 TIMES DAILY PRN, heartburn, Starting on Wed04/26/24 at 1432 $Given 04/29/2024 3:38 AM CDT 1,000 mg dextrose 50 % injection 25-50 mL 25-50 mL, Intravenous, EVERY 15 MIN PRN, low blood sugar, Administer over 1-5 Minutes, Starting on Wed04/26/24 at 1432, Use if have IV access, BG less than 70 mg/dL and meet dose criteria below: Dose if conscious and alert (or disorientated) and NPO = 25 mL Dose if unconscious / not alert = 50 mL Give first dose for initial blood glucose less than 70 mg/dL. If blood glucose at 15 minute recheck is less than or equal to 80 mg/dL continue to administer carbohydrate treatment every 15 minutes, as needed, based on blood glucose and assessment parameters until blood glucose level is above 80 mg/dL x 2 consecutive 15 minute checks. doxycycline (VIBRAMYCIN) 100 mg vial to attach to NS 100 mL bag STAT, 100 mg, Intravenous, ONCE, On Wed04/26/24 at 1030, For 1 dose, FIRST DOSE STAT, Indications: Community Acquired Pneumonia $New Bag 04/26/2024 11:17 AM CDT 100 mg enoxaparin ANTICOAGULANT (LOVENOX) injection 40 mg 40 mg, Subcutaneous, EVERY 12 HOURS, First dose (after last reorder) on Wed04/26/24 at 2200, HOLD if platelet count falls below 50% of baseline or less than 100,000/??L and notify provider. $Given 04/28/2024 10:03 AM CDT 40 mg $Given 04/27/2024 9:34 PM CDT 40 mg $Given 04/27/2024 9:18 AM CDT 40 mg escitalopram (LEXAPRO) tablet 20 mg 20 mg, Oral, DAILY, First dose on Wed04/26/24 at 1500 $Given 04/29/2024 9:44 AM CDT 20 mg $Given 04/28/2024 10:03 AM CDT 20 mg $Given 04/27/2024 9:18 AM CDT 20 mg fentaNYL (DURAGESIC) 25 mcg/hr 72 hr patch 1 patch 1 patch (25 mcg), Transdermal, EVERY 72 HOURS, Administer over 72 Hours, First dose (after last modification) on Wed04/28/24 at 1000, Used fentaNYL patches must be disposed of by placing the patch in the slot of the CsRX container. Document waste in ADS cabinet. Reminder: Remove previous patch before applying new patch. $Patch/Med Applied 04/28/2024 10:03 AM CDT 1 patch Right Lower Back fentaNYL (DURAGESIC) Patch in Place First dose (after last modification) on Wed04/26/24 at 1530 furosemide (LASIX) injection 20 mg 20 mg, Intravenous, ONCE, Administer over 1-3 Minutes, On Wed04/28/24 at 1000, For 1 dose $Given 04/28/2024 9:59 AM CDT 20 mg furosemide (LASIX) injection 40 mg 40 mg, Intravenous, ONCE, Administer over 1-3 Minutes, On Wed04/29/24 at 0800, For 1 dose $Given 04/29/2024 8:04 AM CDT 40 mg gabapentin (NEURONTIN) tablet 1,200 mg 1,200 mg, Oral, 3 TIMES DAILY, First dose on Wed04/26/24 at 1500 $Given 04/29/2024 5:44 AM CDT 1,200 mg $Given 04/28/2024 10:00 PM CDT 1,200 mg $Given 04/28/2024 2:56 PM CDT 1,200 mg glucagon injection 1 mg 1 mg, Subcutaneous, EVERY 15 MIN PRN, low blood sugar, May repeat x 1 only, Starting on Wed04/26/24 at 1432, May give SQ or IM. ONLY use glucagon IF patient has NO IV access AND is UNABLE to swallow AND blood glucose is LESS than or EQUAL to 50 mg/dL. glucose gel 15-30 g 15-30 g, Oral, EVERY 15 MIN PRN, low blood sugar, Starting on Wed04/26/24 at 1432, Give first dose for initial blood glucose less than 70 mg/dL per the dosing instructions below. If blood glucose at 15 minute rechecks is still less than or equal to 80 mg/dL, continue to administer doses per blood glucose parameters every 15 minutes, as needed, until blood glucose level is at or above 80 mg/dL x 2 consecutive 15 minute checks. Dosing Instructions: ~If patient is conscious and able to swallow and NO enteral tube For initial BG 51-69mg/dL OR 15 minute recheck BG 51- 80 mg/dL - give 15 g For BG less than or equal to 50 mg/dL - give 30 g ~ If Enteral tube For initial BG 51-69mg/dL OR 15 minute recheck BG 51- 80 mg/dL - give apple juice 120 mL (4 oz or 15 g of CHO) via enteral tube For BG less than or equal to 50 mg/dL - Give apple juice 240 mL (8 oz or 30 g of CHO) via enteral tube ~Oral gel is preferable for conscious and able to swallow patient. ~IF gel unavailable or patient refuses may provide apple juice per Enteral tube dosing instructions. Document juice on I and O flowsheet. HYDROcodone-acetaminophen (NORCO) 10-325 MG per tablet 1 tablet 1 tablet, Oral, ONCE, On Wed04/26/24 at 1330, For 1 dose, Maximum acetaminophen dose from all sources = 75 mg/kg/day not to exceed 4 grams/day. $Given 04/26/2024 1:14 PM CDT 1 tablet HYDROcodone-acetaminophen (NORCO) 10-325 MG per tablet 1 tablet 1 tablet, Oral, EVERY 4 HOURS PRN, severe pain, Starting on Wed04/26/24 at 1432, Maximum acetaminophen dose from all sources = 75 mg/kg/day not to exceed 4 grams/day. $Given 04/29/2024 9:49 AM CDT 1 tablet $Given 04/29/2024 3:38 AM CDT 1 tablet $Given 04/28/2024 11:20 PM CDT 1 tablet insulin aspart (NovoLOG) injection (RAPID ACTING) 1-3 Units, Subcutaneous, 3 TIMES DAILY BEFORE MEALS, First dose on Wed04/26/24 at 1730, Correction Scale - LOW INSULIN RESISTANCE DOSING Do Not give Correction Insulin if Pre-Meal BG less than 140. For Pre-Meal BG 140 - 239 give 1 unit. For Pre-Meal BG 240 - 339 give 2 units. For Pre-Meal BG greater than or equal to 340 give 3 units. To be given with prandial insulin, and based on pre-meal blood glucose. Administering insulin within 5 minutes of the start of the meal is ideal. Administer insulin no more than 30 minutes after the start of the meal, unless directed otherwise by provider. Notify provider if glucose greater than or equal to 350 mg/dL after administration of correction dose. $Given 04/28/2024 12:21 PM CDT 1 Units $Given 04/28/2024 8:11 AM CDT 1 Units $Given 04/27/2024 5:17 PM CDT 1 Units ipratropium - albuterol 0.5 mg/2.5 mg/3 mL (DUONEB) neb solution 3 mL 3 mL, Nebulization, 4 TIMES DAILY RT, First dose on Wed04/27/24 at 1200 $Given 04/28/2024 7:42 AM CDT 3 mLs $Given 04/27/2024 7:26 PM CDT 3 mLs $Given 04/27/2024 3:30 PM CDT 3 mLs ketorolac (TORADOL) injection 15 mg 15 mg, Intravenous, ONCE, On Wed04/27/24 at 1200, For 1 dose, Can cause pain on injection. If ordered intravenously (IV) : administer through a running maintenance fluid over 1 minute followed by a flush. If patient complains of pain on injection, may dilute 15-30 mg in 5 mL and push over 1 to 2 minutes. $Given 04/27/2024 12:05 PM CDT 15 mg ketorolac (TORADOL) injection 15 mg 15 mg, Intravenous, EVERY 6 HOURS PRN, inflammatory pain, headache, Starting on Wed04/27/24 at 1844, For 5 days, Can cause pain on injection. If ordered intravenously (IV) : administer through a running maintenance fluid over 1 minute followed by a flush. If patient complains of pain on injection, may dilute 15-30 mg in 5 mL and push over 1 to 2 minutes. $Given 04/28/2024 10:00 PM CDT 15 mg $Given 04/27/2024 6:56 PM CDT 15 mg levofloxacin (LEVAQUIN) infusion 750 mg Routine, 750 mg, Intravenous, EVERY 24 HOURS, First dose on Wed04/26/24 at 1400, Irritant. Administer at a rate of no greater than 100 mL/hr, Indications: Community Acquired Pneumonia $New Bag 04/28/2024 6:06 PM CDT 750 mg 10 0 mL/hr $New Bag 04/27/2024 5:17 PM CDT 750 mg 100 mL/hr $New Bag 04/26/2024 5:33 PM CDT 750 mg 100 mL/hr losartan (COZAAR) tablet 25 mg 25 mg, Oral, AT BEDTIME, First dose on Wed04/26/24 at 2200 $Given 04/28/2024 10:00 PM CDT 25 mg $Given 04/27/2024 9:35 PM CDT 25 mg $Given 04/26/2024 9:56 PM CDT 25 mg metFORMIN (GLUCOPHAGE) tablet 1,000 mg 1,000 mg, Oral, 2 TIMES DAILY WITH MEALS, First dose on Wed04/28/24 at 1800, If the patient receives intravenous, iodinated contrast and patient GFR is greater than 60 mL/min/1.7m2, continue metformin. Contact provider for 'hold' or 'no hold' instructions if no GFR or if GFR is less than 60 mL/min/1.7m2. $Given 04/29/2024 8:04 AM CDT 1,000 mg $Given 04/28/2024 6:05 PM CDT 1,000 mg methocarbamol (ROBAXIN) tablet 750 mg 750 mg, Oral, 3 TIMES DAILY PRN, muscle spasms, Starting on Wed04/26/24 at 1432 $Given 04/28/2024 11:20 PM CDT 750 mg multivitamin w/minerals (THERA-VIT-M) tablet 1 tablet 1 tablet, Oral, DAILY, First dose on Wed04/27/24 at 1000 $Given 04/29/2024 9:44 AM CDT 1 tablet $Given 04/28/2024 10:04 AM CDT 1 tablet $Given 04/27/2024 9:18 AM CDT 1 tablet naloxone (NARCAN) injection 0.2 mg 0.2 mg, Intravenous, EVERY 2 MIN PRN, opioid reversal, Starting on Wed04/26/24 at 1502, Administer intravenous route when available and notify provider when administered. For unintended sedation or respiratory depression if all of the below criteria are met: ~ respiratory rate LESS than or EQUAL to 8. ~SaO2 less than 92% and or/end-tidal CO2 is greater than 50. ~ the patient is receiving an opioid, has unintended sedations assessed as RASS (-3), and is currently not on mechanical ventilation. RASS scale moderate (-3) is movement or eye opening to voice but no eye contact. Patient Monitoring Once the patient has demonstrated a response to the naloxone, continue to monitor respiratory rate, depth, oxygen saturation and end-tidal CO2 (if available) every 15 minutes x 2, then every 30 minutes x 2, then every 1 hour x 1 after each naloxone dose. Consider transfer to ICU if patient respiratory parameters have not improved after 4 naloxone doses. naloxone (NARCAN) injection 0.2 mg 0.2 mg, Intramuscular, EVERY 2 MIN PRN, opioid reversal, Starting on Wed04/26/24 at 1502, Administer intramuscular if an intravenous route is not available and notify provider when administered. For unintended sedation or respiratory depression if all of the below criteria are met: ~ respiratory rate LESS than or EQUAL to 8. ~SaO2 less than 92% and or/end-tidal CO2 is greater than 50. ~ the patient is receiving an opioid, has unintended sedations assessed as RASS (-3), and is currently not on mechanical ventilation. RASS scale moderate (-3) is movement or eye opening to voice but no eye contact. Patient Monitoring Once the patient has demonstrated a response to the naloxone, continue to monitor respiratory rate, depth, oxygen saturation and end-tidal CO2 (if available) every 15 minutes x 2, then every 30 minutes x 2, then every 1 hour x 1 after each naloxone dose. Consider transfer to ICU if patient respiratory parameters have not improved after 4 naloxone doses. naloxone (NARCAN) injection 0.4 mg 0.4 mg, Intravenous, EVERY 2 MIN PRN, opioid reversal, Starting on Wed04/26/24 at 1502, Administer intravenous route when available and notify provider when administered. For unintended sedation or respiratory depression if all of the below criteria are met: ~ respiratory rate LESS than or EQUAL to 8. ~ SaO2 less than 92% and or/end-tidal CO2 is greater than 50. ~ the patient is receiving an opioid, has unintended sedation assessed as RASS (-4) or (-5) and patient is currently not on mechanical ventilation. RASS scale (-4) is deep sedation with no response to voice but movement or eye opening to physical stimulation. RASS scale (-5) is unarousable. Patient Monitoring Once the patient has demonstrated a response to the naloxone, continue to monitor respiratory rate, depth, oxygen saturation and end-tidal CO2 (if available) every 15 minutes x 2, then every 30 minutes x 2, then every 1 hour x 1 after each naloxone dose. Consider transfer to ICU if patient respiratory parameters have not improved after 4 naloxone doses. naloxone (NARCAN) injection 0.4 mg 0.4 mg, Intramuscular, EVERY 2 MIN PRN, opioid reversal, Starting on Wed04/26/24 at 1502, Administer intramuscular if an intravenous route is not available and notify provider when administered. For unintended sedation or respiratory depression if all of the below criteria are met: ~ respiratory rate LESS than or EQUAL to 8. ~ SaO2 less than 92% and or/end-tidal CO2 is greater than 50. ~ the patient is receiving an opioid, has unintended sedation assessed as RASS (-4) or (-5) and patient is currently not on mechanical ventilation. RASS scale (-4) is deep sedation with no response to voice but movement or eye opening to physical stimulation. RASS scale (-5) is unarousable. Patient Monitoring Once the patient has demonstrated a response to the naloxone, continue to monitor respiratory rate, depth, oxygen saturation and end-tidal CO2 (if available) every 15 minutes x 2, then every 30 minutes x 2, then every 1 hour x 1 after each naloxone dose. Consider transfer to ICU if patient respiratory parameters have not improved after 4 naloxone doses. ondansetron (ZOFRAN ODT) ODT tab 4 mg 4 mg, Oral, EVERY 6 HOURS PRN, nausea, vomiting, Starting on Wed04/26/24 at 1432, This is Step 1 of nausea and vomiting management. If nausea not resolved in 15 minutes, go to Step 2 prochlorperazine (COMPAZINE). With dry hands, peel back foil backing and gently remove tablet. Do not push oral disintegrating tablet through foil backing. Administer immediately on tongue and oral disintegrating tablet dissolves in seconds, then swallow with saliva. Liquid not required. ondansetron (ZOFRAN) injection 4 mg 4 mg, Intravenous, EVERY 6 HOURS PRN, nausea, vomiting, Administer over 2-5 Minutes, Starting on Wed04/26/24 at 1432, Give IF patient unable to tolerate oral medication. This is Step 1 of nausea and vomiting management. If nausea not resolved in 15 minutes, go to Step 2 prochlorperazine (COMPAZINE). Irritant. pantoprazole (PROTONIX) EC tablet 40 mg 40 mg, Oral, DAILY, First dose on Wed04/26/24 at 1500 $Given 04/29/2024 9:44 AM CDT 40 mg $Given 04/28/2024 10:04 AM CDT 40 mg $Given 04/27/2024 9:18 AM CDT 40 mg pramipexole (MIRAPEX) tablet 0.25 mg 0.25 mg, Oral, AT BEDTIME, First dose on Wed04/26/24 at 2200 $Given 04/28/2024 10:00 PM CDT 0.25 mg $Given 04/27/2024 9:35 PM CDT 0.25 mg $Given 04/26/2024 9:56 PM CDT 0.25 mg prochlorperazine (COMPAZINE) injection 5 mg 5 mg, Intravenous, EVERY 6 HOURS PRN, nausea, vomiting, Administer over 1-2 Minutes, Starting on Wed04/26/24 at 1432, IF patient unable to tolerate oral medication. This is Step 2 of nausea and vomiting management. Give if nausea not resolved 15 minutes after giving ondansetron (ZOFRAN). prochlorperazine (COMPAZINE) suppository 12.5 mg 12.5 mg, Rectal, EVERY 12 HOURS PRN, nausea, vomiting, Starting on Wed04/26/24 at 1432, This is Step 2 of nausea and vomiting management. Give if nausea not resolved 15 minutes after giving ondansetron (ZOFRAN). prochlorperazine (COMPAZINE) tablet 5 mg 5 mg, Oral, EVERY 6 HOURS PRN, vomiting, Starting on Wed04/26/24 at 1432, This is Step 2 of nausea and vomiting management. Give if nausea not resolved 15 minutes after giving ondansetron (ZOFRAN). senna-docusate (SENOKOT-S/PERICOLACE) 8.6-50 MG per tablet 1 tablet 1 tablet, Oral, 2 TIMES DAILY PRN, constipation, Starting on Wed04/26/24 at 1432, If no bowel movement in 24 hours, increase to 2 tablets by mouth. IF more than 1 constipation PRN medication is ordered, administer step-byrd as indicated, moving to the next step ONLY if prior step ineffective. Step 1: senna-docusate (SENOKOT-S; PERICOLACE) OR bisacodyl (DULCOLAX) EC tablet Step 2: polyethylene glycol (MIRALAX/GLYCOLAX) Step 3: bisacodyl (DULCOLAX) suppository Step 4: enema Hold for loose stools. senna-docusate (SENOKOT-S/PERICOLACE) 8.6-50 MG per tablet 2 tablet 2 tablet, Oral, 2 TIMES DAILY PRN, constipation, Starting on Wed04/26/24 at 1432, IF more than 1 constipation PRN medication is ordered, administer step-byrd as indicated, moving to the next step ONLY if prior step ineffective. Step 1: senna-docusate (SENOKOT-S; PERICOLACE) OR bisacodyl (DULCOLAX) EC tablet Step 2: polyethylene glycol (MIRALAX/GLYCOLAX) Step 3: bisacodyl (DULCOLAX) suppository Step 4: enema Hold for loose stools. sodium chloride (PF) 0.9% PF flush 3 mL 3 mL, Intracatheter, EVERY 8 HOURS, First dose on Wed04/26/24 at 1030, And PRN, to lock peripheral IV dormant line. $Given 04/26/2024 11:17 AM CDT 3 mLs sodium chloride (PF) 0.9% PF flush 3 mL 3 mL, Intracatheter, EVERY 8 HOURS, First dose on Wed04/26/24 at 1500, to lock peripheral IV dormant line $Given 04/29/2024 5:45 AM CDT 3 mLs $Given 04/28/2024 2:56 PM CDT 3 mLs $Given 04/28/2024 6:35 AM CDT 3 mLs sodium chloride 0.9% BOLUS 1,000 mL Intravenous, 1,000 mL, ONCE, On Wed04/26/24 at 1030, For 1 dose $New Bag 04/26/2024 10:35 AM CDT 1,000 mLs 999 mL/hr vancomycin (VANCOCIN) 2,000 mg in 0.9% NaCl 500 mL intermittent infusion STAT, 2,000 mg, Intravenous, ONCE, On Wed04/26/24 at 1100, For 1 dose, Infuse doses less than 1,250 mg over 1 hour. Infuse doses between 1,250 mg and less than 1,750 mg over 90 minutes. Infuse doses 1,750 mg and above over 2 hours., Indications: Sepsis $New Bag 04/26/2024 12:49 PM CDT 2,000 mg documented in this encounter Active and Recently Administered Medications Times are shown in CDT. Scheduled Medication Order 04/27/2024 04/28/202404/29/2024 allopurinol (ZYLOPRIM) tablet 300 mg 300 mg, Oral, DAILY, First dose on Wed04/26/24 at 1500 0918 ($Given - Provider: Dona Fulton, RN) 1004 ($Given - Provider: Yonny Mullen, RN) 0944 ($Given - Provider: Becky Marie, RN) aspirin EC tablet 81 mg (CANCELED) 81 mg, Oral, DAILY, First dose on Wed04/26/24 at 1500, DO NOT CRUSH. 0918 ($Given - Provider: Dona Fulton RN) 1004 ($Given - Provider: Yonny Mullen, NORBERTO) atorvastatin (LIPITOR) tablet 20 mg 20 mg, Oral, AT BEDTIME, First dose on Wed04/26/24 at 2200 2134 ($Given - Provider: Nicole Stacy RN) 2200 ($Given - Provider: Merna Garcia, NORBERTO) budesonide (PULMICORT) neb solution 0.5 mg 0.5 mg, Nebulization, 2 TIMES DAILY RT, First dose on Wed04/28/24 at 1000 1046 ($Given - Provider: Jesus Mendieta, RT)1818 ($Given - Provider: Jesus Mendieta, RT) 0609 ($Given - Provider: Stephanie Apodaca, RT) buPROPion (WELLBUTRIN SR) 12 hr tablet 150 mg 150 mg, Oral, 2 TIMES DAILY, First dose on Wed04/26/24 at 2200, DO NOT CRUSH. 0918 ($Given - Provider: Dona Fulton RN)2135 ($Given - Provider: Nicole Stacy RN) 1004 ($Given - Provider: Yonny Mullen, NORBERTO)2200 ($Given - Provider: Merna Garcia, NORBERTO) 0944 ($Given - Provider: Becky Marie, NORBERTO) enoxaparin ANTICOAGULANT (LOVENOX) injection 40 mg (CANCELED) 40 mg, Subcutaneous, EVERY 12 HOURS, First dose (after last reorder) on Wed04/26/24 at 2200, HOLD if platelet count falls below 50% of baseline or less than 100,000/??L and notify provider. 0918 ($Given - Provider: Dona White, RN)2134 ($Given - Provider: Nicole Stacy RN) 1003 ($Given - Provider: Yonny Mullen RN) escitalopram (LEXAPRO) tablet 20 mg 20 mg, Oral, DAILY, First dose on Wed04/26/24 at 1500 0918 ($Given - Provider: Dona Fulton RN) 1003 ($Given - Provider: Yonny Mullen, NORBERTO) 0944 ($Given - Provider: Becky Marie RN) fentaNYL (DURAGESIC) 25 mcg/hr 72 hr patch 1 patch(Linked Group 1) 1 patch (25 mcg), Transdermal, EVERY 72 HOURS, Administer over 72 Hours, First dose (after last modification) on Wed04/28/24 at 1000, Used fentaNYL patches must be disposed of by placing the patch in the slot of the CsRX container. Document waste in ADS cabinet. Reminder: Remove previous patch before applying new patch. 1003 ($Patch/Med Applied - Provider: Yonny Mullen RN) 1358 (Due: Patch/Med Removed - Provider: Orders Generic Provider - Comment: Time automatically adjusted from order being discontinued) fentaNYL (DURAGESIC) Patch in Place(Linked Group 1) First dose (after last modification) on Wed04/26/24 at 1530 0602 (Patch in Place - Provider: Nicole Stacy RN)1449 (Patch in Place - Provider: Yonny Mullen RN)2136 (Patch in Place - Provider: Nicole Stacy RN) 0635 (Patch in Place - Provider: Nicole Stacy RN)1456 (Patch in Place - Provider: Yonny Mullen RN)2222 (Patch in Place - Provider: Merna Garcia RN) 0545 (Patch in Place - Provider: Darling Sanchez RN)1400 (Canceled Entry - Provider: Orders Generic Provider - Comment: Automatically canceled at discontinue of medication order) furosemide (LASIX) injection 20 mg (COMPLETED) 20 mg, Intravenous, ONCE, Administer over 1-3 Minutes, On Wed04/28/24 at 1000, For 1 dose 0959 ($Given - Provider: Yonny Mullen RN) furosemide (LASIX) injection 40 mg (COMPLETED) 40 mg, Intravenous, ONCE, Administer over 1-3 Minutes, On Wed04/29/24 at 0800, For 1 dose 0804 ($Given - Provider: Yonny Mullen RN) gabapentin (NEURONTIN) tablet 1,200 mg 1,200 mg, Oral, 3 TIMES DAILY, First dose on Wed04/26/24 at 1500 0559 ($Given - Provider: Nicole Stacy RN)1447 ($Given - Provider: Yonny Mullen RN)2135 ($Given - Provider: Nicole Stacy RN) 0635 ($Given - Provider: Nicole Stacy RN)1456 ($Given - Provider: Yonny Mullen RN)2200 ($Given - Provider: Merna Garcia RN) 0544 ($Given - Provider: Darling Sanchez RN)1400 (Canceled Entry - Provider: Orders Generic Provider - Comment: Automatically canceled at discontinue of medication order) insulin aspart (NovoLOG) injection (RAPID ACTING) 1-3 Units, Subcutaneous, 3 TIMES DAILY BEFORE MEALS, First dose on Wed04/26/24 at 1730, Correction Scale - LOW INSULIN RESISTANCE DOSING Do Not give Correction Insulin if Pre-Meal BG less than 140. For Pre-Meal BG 140 - 239 give 1 unit. For Pre-Meal BG 240 - 339 give 2 units. For Pre-Meal BG greater than or equal to 340 give 3 units. To be given with prandial insulin, and based on pre-meal blood glucose. Administering insulin within 5 minutes of the start of the meal is ideal. Administer insulin no more than 30 minutes after the start of the meal, unless directed otherwise by provider. Notify provider if glucose greater than or equal to 350 mg/dL after administration of correction dose. 0731 (Not Given - Provider: Dona Fulton RN - Reason: Order parameters not met)1137 ($Given - Provider: Dona Fulton RN)1717 ($Given - Provider: Yonny Mullen, NORBERTO) 0811 ($Given - Provider: Yonny Mullen RN - Comment: [phone])1221 ($Given - Provider: Yonny Mullen RN)1704 (Not Given - Provider: Mihir Rodas RN - Reason: Order parameters not met - Comment: [id number]) 0804 (Not Given - Provider: Yonny Mullen RN - Reason: Order to hold this dose)1117 (Not Given - Provider: Yonny Mullen RN - Reason: Order parameters not met) insulin aspart (NovoLOG) injection (RAPID ACTING) 1-3 Units, Subcutaneous, AT BEDTIME, First dose on Wed04/26/24 at 2200, LOW INSULIN RESISTANCE DOSING Do Not give Bedtime Correction Insulin if BG less than 200. For BG 200 - 299 give 1 unit. For BG 300 - 399 give 2 units For BG greater than or equal 400 give 3 units. Notify provider if glucose greater than or equal to 350 mg/dL after administration of correction dose. 2219 (Not Given - Provider: Nicole Stacy RN - Reason: Order parameters not met) 2151 (Not Given - Provider: Merna Garcia RN - Reason: Order parameters not met - Comment: BG 139) ipratropium - albuterol 0.5 mg/2.5 mg/3 mL (DUONEB) neb solution 3 mL (CANCELED) 3 mL, Nebulization, 4 TIMES DAILY RT, First dose on Wed04/27/24 at 1200 1217 ($Given - Provider: Mary Ellen Paulino, RT)1530 ($Given - Provider: Mary Ellen Paulino, RT)1926 ($Given - Provider: Dusty Marti, RT) 0742 ($Given - Provider: Jesus Mendieta, RT) ketorolac (TORADOL) injection 15 mg (COMPLETED) 15 mg, Intravenous, ONCE, On Wed04/27/24 at 1200, For 1 dose, Can cause pain on injection. If ordered intravenously (IV) : administer through a running maintenance fluid over 1 minute followed by a flush. If patient complains of pain on injection, may dilute 15-30 mg in 5 mL and push over 1 to 2 minutes. 1205 ($Given - Provider: Dona Fulton RN) levofloxacin (LEVAQUIN) infusion 750 mg Routine, 750 mg, Intravenous, EVERY 24 HOURS, First dose on Wed04/26/24 at 1400, Irritant. Administer at a rate of no greater than 100 mL/hr, Indications: Community Acquired Pneumonia 1717 ($New Bag - Provider: Yonny Mullen RN) 1806 ($New Bag - Provider: Mihir Rodas RN) losartan (COZAAR) tablet 25 mg 25 mg, Oral, AT BEDTIME, First dose on Wed04/26/24 at 2200 2135 ($Given - Provider: Nicole Stacy, NORBERTO) 2200 ($Given - Provider: Merna Garcia, NORBERTO) metFORMIN (GLUCOPHAGE) tablet 1,000 mg 1,000 mg, Oral, 2 TIMES DAILY WITH MEALS, First dose on Wed04/28/24 at 1800, If the patient receives intravenous, iodinated contrast and patient GFR is greater than 60 mL/min/1.7m2, continue metformin. Contact provider for 'hold' or 'no hold' instructions if no GFR or if GFR is less than 60 mL/min/1.7m2. 1805 ($Given - Provider: Mihir Rodas RN) 0804 ($Given - Provider: Yonny Mullen RN) multivitamin w/minerals (THERA-VIT-M) tablet 1 tablet 1 tablet, Oral, DAILY, First dose on Wed04/27/24 at 1000 0918 ($Given - Provider: Dona Fulton RN) 1004 ($Given - Provider: Yonny Mullen RN) 0944 ($Given - Provider: Becky Marie, NORBERTO) pantoprazole (PROTONIX) EC tablet 40 mg 40 mg, Oral, DAILY, First dose on Wed04/26/24 at 1500 0918 ($Given - Provider: Dona Fulton RN) 1004 ($Given - Provider: Yonny Mullen RN) 0944 ($Given - Provider: Becky Marie, NORBERTO) pramipexole (MIRAPEX) tablet 0.25 mg 0.25 mg, Oral, AT BEDTIME, First dose on Wed04/26/24 at 2200 2135 ($Given - Provider: Nicole Stacy RN) 2200 ($Given - Provider: Merna Garcia, NORBERTO) sodium chloride (PF) 0.9% PF flush 3 mL 3 mL, Intracatheter, EVERY 8 HOURS, First dose on Wed04/26/24 at 1500, to lock peripheral IV dormant line 0602 ($Given - Provider: Nicole Stacy RN)1448 ($Given - Provider: Yonny Mullen, NORBERTO)2152 ($Given - Provider: Nicole Stacy RN) 0635 ($Given - Provider: Nicole Stacy RN)1456 ($Given - Provider: Yonny Mullen, NORBERTO)2227 (Not Given - Provider: Merna Garcia RN - Reason: IV Infusing) 0545 ($Given - Provider: Darling Sanchez RN)1400 (Canceled Entry - Provider: Orders Generic Provider - Comment: Automatically canceled at discontinue of medication order) PRN Medication Order 04/27/2024 04/28/2024 04/29/2024 acetaminophen (TYLENOL) Suppository 650 mg(Linked Group 2) 650 mg, Rectal, EVERY 4 HOURS PRN, mild pain, other, and adjunct with moderate or severe pain or per patient request, Starting on Wed04/26/24 at 1432, Alternate with ibuprofen if ordered. Maximum acetaminophen dose from all sources = 75 mg/kg/day not to exceed 4 grams/day. 0252 (See Alternative - Provider: Nicole Stacy RN)0741 (See Alternative - Provider: Dona Fulton RN)1622 (See Alternative - Provider: Yonny Mullen, NORBERTO) 2158 (See Alternative - Provider: Merna Garcia, NORBERTO) acetaminophen (TYLENOL) tablet 650 mg(Linked Group 2) 650 mg, Oral, EVERY 4 HOURS PRN, mild pain, other, and adjunct with moderate or severe pain or per patient request, Starting on Wed04/26/24 at 1432, Alternate with ibuprofen if ordered. Maximum acetaminophen dose from all sources = 75 mg/kg/day not to exceed 4 grams/day. 0252 ($Given - Provider: Nicole Stacy RN)0741 ($Given - Provider: Dona Fulton RN)1622 ($Given - Provider: Yonny Mullen, NORBERTO) 215 ($Given - Provider: Merna Garcia, NORBERTO) bisacodyl (DULCOLAX) suppository 10 mg 10 mg, Rectal, DAILY PRN, constipation, Starting on Wed04/26/24 at 1432, IF more than 1 constipation PRN medication is ordered, administer step-byrd as indicated, moving to the next step ONLY if prior step ineffective. Step 1: senna-docusate (SENOKOT-S; PERICOLACE) OR bisacodyl (DULCOLAX) EC tablet Step 2: polyethylene glycol (MIRALAX/GLYCOLAX) Step 3: bisacodyl (DULCOLAX) suppository Step 4: enema Hold for loose stools. calcium carbonate (TUMS) chewable tablet 1,000 mg 1,000 mg, Oral, 4 TIMES DAILY PRN, heartburn, Starting on Wed04/26/24 at 1432 0338 ($Given - Provider: Darling Sanchez RN) dextrose 50 % injection 25-50 mL(Linked Group 3) 25-50 mL, Intravenous, EVERY 15 MIN PRN, low blood sugar, Administer over 1-5 Minutes, Starting on Wed04/26/24 at 1432, Use if have IV access, BG less than 70 mg/dL and meet dose criteria below: Dose if conscious and alert (or disorientated) and NPO = 25 mL Dose if unconscious / not alert = 50 mL Give first dose for initial blood glucose less than 70 mg/dL. If blood glucose at 15 minute recheck is less than or equal to 80 mg/dL continue to administer carbohydrate treatment every 15 minutes, as needed, based on blood glucose and assessment parameters until blood glucose level is above 80 mg/dL x 2 consecutive 15 minute checks. glucagon injection 1 mg(Linked Group 3) 1 mg, Subcutaneous, EVERY 15 MIN PRN, low blood sugar, May repeat x 1 only, Starting on Wed04/26/24 at 1432, May give SQ or IM. ONLY use glucagon IF patient has NO IV access AND is UNABLE to swallow AND blood glucose is LESS than or EQUAL to 50 mg/dL. glucose gel 15-30 g(Linked Group 3) 15-30 g, Oral, EVERY 15 MIN PRN, low blood sugar, Starting on Wed04/26/24 at 1432, Give first dose for initial blood glucose less than 70 mg/dL per the dosing instructions below. If blood glucose at 15 minute rechecks is still less than or equal to 80 mg/dL, continue to administer doses per blood glucose parameters every 15 minutes, as needed, until blood glucose level is at or above 80 mg/dL x 2 consecutive 15 minute checks. Dosing Instructions: ~If patient is conscious and able to swallow and NO enteral tube For initial BG 51-69mg/dL OR 15 minute recheck BG 51- 80 mg/dL - give 15 g For BG less than or equal to 50 mg/dL - give 30 g ~ If Enteral tube For initial BG 51-69mg/dL OR 15 minute recheck BG 51- 80 mg/dL - give apple juice 120 mL (4 oz or 15 g of CHO) via enteral tube For BG less than or equal to 50 mg/dL - Give apple juice 240 mL (8 oz or 30 g of CHO) via enteral tube ~Oral gel is preferable for conscious and able to swallow patient. ~IF gel unavailable or patient refuses may provide apple juice per Enteral tube dosing instructions. Document juice on I and O flowsheet. HYDROcodone-acetaminophen (NORCO) 10-325 MG per tablet 1 tablet 1 tablet, Oral, EVERY 4 HOURS PRN, severe pain, Starting on Wed04/26/24 at 1432, Maximum acetaminophen dose from all sources = 75 mg/kg/day not to exceed 4 grams/day. 0602 ($Given - Provider: Nicole Stacy RN)1136 ($Given - Provider: Dona Fulton RN)1729 ($Given - Provider: Yonny Mullen RN) 0239 ($Given - Provider: Nicole Stacy RN)1004 ($Given - Provider: Yonny Mullen RN)1938 ($Given - Provider: Merna Garcia RN)2320 ($Given - Provider: Merna Garcia RN) 0338 ($Given - Provider: Darling Sanchez RN)0949 ($Given - Provider: Becky Marie, NORBERTO) ketorolac (TORADOL) injection 15 mg 15 mg, Intravenous, EVERY 6 HOURS PRN, inflammatory pain, headache, Starting on Wed04/27/24 at 1844, For 5 days, Can cause pain on injection. If ordered intravenously (IV) : administer through a running maintenance fluid over 1 minute followed by a flush. If patient complains of pain on injection, may dilute 15-30 mg in 5 mL and push over 1 to 2 minutes. 1856 ($Given - Provider: Yonny Mullen, NORBERTO) 2200 ($Given - Provider: Merna Garcia RN) lidocaine (LMX4) cream Topical, EVERY 1 HOUR PRN, pain, with VAD insertion, Starting on Wed04/26/24 at 1432, Apply at least 30 minutes prior to VAD insertion in divided doses as needed for size of site for insertion. MAX Dose: 2.5 g (?? of 5 g tube) Do NOT give if patient has a history of allergy to any local anesthetic or any kaiden product. Do NOT use both lidocaine intradermal/subcutaneous injection and the lidocaine cream on the same site. lidocaine 1 % 0.1-1 mL 0.1-1 mL, Other, EVERY 1 HOUR PRN, mild pain with VAD insertion, Starting on Wed04/26/24 at 1432, MAX dose 1 mL subcutaneous OR intradermal along the side of the vein in divided doses as needed for VAD insertion. Do NOT give if patient has a history of allergy to any local anesthetic or any kaiden product. Do NOT use both lidocaine intradermal/subcutaneous injection and the lidocaine cream on the same site. melatonin tablet 3 mg 3 mg, Oral, AT BEDTIME PRN, sleep, Starting on Wed04/26/24 at 1432, Do not give unless at least 6 hours of uninterrupted sleep is expected. If patient has multiple medications ordered PRN sleep/insomnia, offer melatonin first. methocarbamol (ROBAXIN) tablet 750 mg 750 mg, Oral, 3 TIMES DAILY PRN, muscle spasms, Starting on Wed04/26/24 at 1432 2320 ($Given - Provider: Merna Garcia RN) naloxone (NARCAN) injection 0.2 mg(Linked Group 4) 0.2 mg, Intravenous, EVERY 2 MIN PRN, opioid reversal, Starting on Wed04/26/24 at 1502, Administer intravenous route when available and notify provider when administered. For unintended sedation or respiratory depression if all of the below criteria are met: ~ respiratory rate LESS than or EQUAL to 8. ~SaO2 less than 92% and or/end-tidal CO2 is greater than 50. ~ the patient is receiving an opioid, has unintended sedations assessed as RASS (-3), and is currently not on mechanical ventilation. RASS scale moderate (-3) is movement or eye opening to voice but no eye contact. Patient Monitoring Once the patient has demonstrated a response to the naloxone, continue to monitor respiratory rate, depth, oxygen saturation and end-tidal CO2 (if available) every 15 minutes x 2, then every 30 minutes x 2, then every 1 hour x 1 after each naloxone dose. Consider transfer to ICU if patient respiratory parameters have not improved after 4 naloxone doses. naloxone (NARCAN) injection 0.2 mg(Linked Group 4) 0.2 mg, Intramuscular, EVERY 2 MIN PRN, opioid reversal, Starting on Wed04/26/24 at 1502, Administer intramuscular if an intravenous route is not available and notify provider when administered. For unintended sedation or respiratory depression if all of the below criteria are met: ~ respiratory rate LESS than or EQUAL to 8. ~SaO2 less than 92% and or/end-tidal CO2 is greater than 50. ~ the patient is receiving an opioid, has unintended sedations assessed as RASS (-3), and is currently not on mechanical ventilation. RASS scale moderate (-3) is movement or eye opening to voice but no eye contact. Patient Monitoring Once the patient has demonstrated a response to the naloxone, continue to monitor respiratory rate, depth, oxygen saturation and end-tidal CO2 (if available) every 15 minutes x 2, then every 30 minutes x 2, then every 1 hour x 1 after each naloxone dose. Consider transfer to ICU if patient respiratory parameters have not improved after 4 naloxone doses. naloxone (NARCAN) injection 0.4 mg(Linked Group 4) 0.4 mg, Intravenous, EVERY 2 MIN PRN, opioid reversal, Starting on Wed04/26/24 at 1502, Administer intravenous route when available and notify provider when administered. For unintended sedation or respiratory depression if all of the below criteria are met: ~ respiratory rate LESS than or EQUAL to 8. ~ SaO2 less than 92% and or/end-tidal CO2 is greater than 50. ~ the patient is receiving an opioid, has unintended sedation assessed as RASS (-4) or (-5) and patient is currently not on mechanical ventilation. RASS scale (-4) is deep sedation with no response to voice but movement or eye opening to physical stimulation. RASS scale (-5) is unarousable. Patient Monitoring Once the patient has demonstrated a response to the naloxone, continue to monitor respiratory rate, depth, oxygen saturation and end-tidal CO2 (if available) every 15 minutes x 2, then every 30 minutes x 2, then every 1 hour x 1 after each naloxone dose. Consider transfer to ICU if patient respiratory parameters have not improved after 4 naloxone doses. naloxone (NARCAN) injection 0.4 mg(Linked Group 4) 0.4 mg, Intramuscular, EVERY 2 MIN PRN, opioid reversal, Starting on Wed04/26/24 at 1502, Administer intramuscular if an intravenous route is not available and notify provider when administered. For unintended sedation or respiratory depression if all of the below criteria are met: ~ respiratory rate LESS than or EQUAL to 8. ~ SaO2 less than 92% and or/end-tidal CO2 is greater than 50. ~ the patient is receiving an opioid, has unintended sedation assessed as RASS (-4) or (-5) and patient is currently not on mechanical ventilation. RASS scale (-4) is deep sedation with no response to voice but movement or eye opening to physical stimulation. RASS scale (-5) is unarousable. Patient Monitoring Once the patient has demonstrated a response to the naloxone, continue to monitor respiratory rate, depth, oxygen saturation and end-tidal CO2 (if available) every 15 minutes x 2, then every 30 minutes x 2, then every 1 hour x 1 after each naloxone dose. Consider transfer to ICU if patient respiratory parameters have not improved after 4 naloxone doses. ondansetron (ZOFRAN ODT) ODT tab 4 mg(Linked Group 5) 4 mg, Oral, EVERY 6 HOURS PRN, nausea, vomiting, Starting on Wed04/26/24 at 1432, This is Step 1 of nausea and vomiting management. If nausea not resolved in 15 minutes, go to Step 2 prochlorperazine (COMPAZINE). With dry hands, peel back foil backing and gently remove tablet. Do not push oral disintegrating tablet through foil backing. Administer immediately on tongue and oral disintegrating tablet dissolves in seconds, then swallow with saliva. Liquid not required. ondansetron (ZOFRAN) injection 4 mg(Linked Group 5) 4 mg, Intravenous, EVERY 6 HOURS PRN, nausea, vomiting, Administer over 2-5 Minutes, Starting on Wed04/26/24 at 1432, Give IF patient unable to tolerate oral medication. This is Step 1 of nausea and vomiting management. If nausea not resolved in 15 minutes, go to Step 2 prochlorperazine (COMPAZINE). Irritant. polyethylene glycol (MIRALAX) Packet 17 g 17 g, Oral, 2 TIMES DAILY PRN, constipation, Starting on Wed04/26/24 at 1432, IF more than 1 constipation PRN medication is ordered, administer step-byrd as indicated, moving to the next step ONLY if prior step ineffective. Step 1: senna-docusate (SENOKOT-S; PERICOLACE) OR bisacodyl (DULCOLAX) EC tablet Step 2: polyethylene glycol (MIRALAX/GLYCOLAX) Step 3: bisacodyl (DULCOLAX) suppository Step 4: enema 1 Packet = 17 grams. Mix each gram with at least 1/2 ounce (15 mL) of water - 8 ounces for 17 g dose, 4 ounces for 8.5 g dose, 2 ounces for 4 g dose. Follow with the same volume of water. Hold for loose stools unless being administered as part of a bowel prep regimen or bowel clean out. prochlorperazine (COMPAZINE) injection 5 mg(Linked Group 6) 5 mg, Intravenous, EVERY 6 HOURS PRN, nausea, vomiting, Administer over 1-2 Minutes, Starting on Wed04/26/24 at 1432, IF patient unable to tolerate oral medication. This is Step 2 of nausea and vomiting management. Give if nausea not resolved 15 minutes after giving ondansetron (ZOFRAN). prochlorperazine (COMPAZINE) suppository 12.5 mg(Linked Group 6) 12.5 mg, Rectal, EVERY 12 HOURS PRN, nausea, vomiting, Starting on Wed04/26/24 at 1432, This is Step 2 of nausea and vomiting management. Give if nausea not resolved 15 minutes after giving ondansetron (ZOFRAN). prochlorperazine (COMPAZINE) tablet 5 mg(Linked Group 6) 5 mg, Oral, EVERY 6 HOURS PRN, vomiting, Starting on Wed04/26/24 at 1432, This is Step 2 of nausea and vomiting management. Give if nausea not resolved 15 minutes after giving ondansetron (ZOFRAN). senna-docusate (SENOKOT-S/PERICOLACE) 8.6-50 MG per tablet 1 tablet(Linked Group 7) 1 tablet, Oral, 2 TIMES DAILY PRN, constipation, Starting on Wed04/26/24 at 1432, If no bowel movement in 24 hours, increase to 2 tablets by mouth. IF more than 1 constipation PRN medication is ordered, administer step-byrd as indicated, moving to the next step ONLY if prior step ineffective. Step 1: senna-docusate (SENOKOT-S; PERICOLACE) OR bisacodyl (DULCOLAX) EC tablet Step 2: polyethylene glycol (MIRALAX/GLYCOLAX) Step 3: bisacodyl (DULCOLAX) suppository Step 4: enema Hold for loose stools. senna-docusate (SENOKOT-S/PERICOLACE) 8.6-50 MG per tablet 2 tablet(Linked Group 7) 2 tablet, Oral, 2 TIMES DAILY PRN, constipation, Starting on Wed04/26/24 at 1432, IF more than 1 constipation PRN medication is ordered, administer step-byrd as indicated, moving to the next step ONLY if prior step ineffective. Step 1: senna-docusate (SENOKOT-S; PERICOLACE) OR bisacodyl (DULCOLAX) EC tablet Step 2: polyethylene glycol (MIRALAX/GLYCOLAX) Step 3: bisacodyl (DULCOLAX) suppository Step 4: enema Hold for loose stools. sodium chloride (PF) 0.9% PF flush 3 mL 3 mL, Intracatheter, EVERY 1 MIN PRN, line flush, other, to ensure patency or to lock dormant line, Starting on Wed04/26/24 at 1432 Linked Groups Order Group 1: fentaNYL (DURAGESIC) 25 mcg/hr 72 hr patch 1 patchJump to med 1 patch (25 mcg), Transdermal, EVERY 72 HOURS, Administer over 72 Hours, First dose (after last modification) on Wed04/28/24 at 1000, Used fentaNYL patches must be disposed of by placing the patch in the slot of the CsRX container. Document waste in ADS cabinet. Reminder: Remove previous patch before applying new patch. And fentaNYL (DURAGESIC) Patch in PlaceJump to med First dose (after last modification) on Wed04/26/24 at 1530 Group 2: acetaminophen (TYLENOL) tablet 650 mgJump to med 650 mg, Oral, EVERY 4 HOURS PRN, mild pain, other, and adjunct with moderate or severe pain or per patient request, Starting on Wed04/26/24 at 1432, Alternate with ibuprofen if ordered. Maximum acetaminophen dose from all sources = 75 mg/kg/day not to exceed 4 grams/day. Or acetaminophen (TYLENOL) Suppository 650 mgJump to med 650 mg, Rectal, EVERY 4 HOURS PRN, mild pain, other, and adjunct with moderate or severe pain or per patient request, Starting on Wed04/26/24 at 1432, Alternate with ibuprofen if ordered. Maximum acetaminophen dose from all sources = 75 mg/kg/day not to exceed 4 grams/day. Group 3: glucose gel 15-30 gJump to med 15-30 g, Oral, EVERY 15 MIN PRN, low blood sugar, Starting on Wed04/26/24 at 1432, Give first dose for initial blood glucose less than 70 mg/dL per the dosing instructions below. If blood glucose at 15 minute rechecks is still less than or equal to 80 mg/dL, continue to administer doses per blood glucose parameters every 15 minutes, as needed, until blood glucose level is at or above 80 mg/dL x 2 consecutive 15 minute checks. Dosing Instructions: ~If patient is conscious and able to swallow and NO enteral tube For initial BG 51-69mg/dL OR 15 minute recheck BG 51- 80 mg/dL - give 15 g For BG less than or equal to 50 mg/dL - give 30 g ~ If Enteral tube For initial BG 51-69mg/dL OR 15 minute recheck BG 51- 80 mg/dL - give apple juice 120 mL (4 oz or 15 g of CHO) via enteral tube For BG less than or equal to 50 mg/dL - Give apple juice 240 mL (8 oz or 30 g of CHO) via enteral tube ~Oral gel is preferable for conscious and able to swallow patient. ~IF gel unavailable or patient refuses may provide apple juice per Enteral tube dosing instructions. Document juice on I and O flowsheet. Or dextrose 50 % injection 25-50 mLJump to med 25-50 mL, Intravenous, EVERY 15 MIN PRN, low blood sugar, Administer over 1-5 Minutes, Starting on Wed04/26/24 at 1432, Use if have IV access, BG less than 70 mg/dL and meet dose criteria below: Dose if conscious and alert (or disorientated) and NPO = 25 mL Dose if unconscious / not alert = 50 mL Give first dose for initial blood glucose less than 70 mg/dL. If blood glucose at 15 minute recheck is less than or equal to 80 mg/dL continue to administer carbohydrate treatment every 15 minutes, as needed, based on blood glucose and assessment parameters until blood glucose level is above 80 mg/dL x 2 consecutive 15 minute checks. Or glucagon injection 1 mgJump to med 1 mg, Subcutaneous, EVERY 15 MIN PRN, low blood sugar, May repeat x 1 only, Starting on Wed04/26/24 at 1432, May give SQ or IM. ONLY use glucagon IF patient has NO IV access AND is UNABLE to swallow AND blood glucose is LESS than or EQUAL to 50 mg/dL. Group 4: naloxone (NARCAN) injection 0.2 mgJump to med 0.2 mg, Intravenous, EVERY 2 MIN PRN, opioid reversal, Starting on Wed04/26/24 at 1502, Administer intravenous route when available and notify provider when administered. For unintended sedation or respiratory depression if all of the below criteria are met: ~ respiratory rate LESS than or EQUAL to 8. ~SaO2 less than 92% and or/end-tidal CO2 is greater than 50. ~ the patient is receiving an opioid, has unintended sedations assessed as RASS (-3), and is currently not on mechanical ventilation. RASS scale moderate (-3) is movement or eye opening to voice but no eye contact. Patient Monitoring Once the patient has demonstrated a response to the naloxone, continue to monitor respiratory rate, depth, oxygen saturation and end-tidal CO2 (if available) every 15 minutes x 2, then every 30 minutes x 2, then every 1 hour x 1 after each naloxone dose. Consider transfer to ICU if patient respiratory parameters have not improved after 4 naloxone doses. Or naloxone (NARCAN) injection 0.4 mgJump to med 0.4 mg, Intravenous, EVERY 2 MIN PRN, opioid reversal, Starting on Wed04/26/24 at 1502, Administer intravenous route when available and notify provider when administered. For unintended sedation or respiratory depression if all of the below criteria are met: ~ respiratory rate LESS than or EQUAL to 8. ~ SaO2 less than 92% and or/end-tidal CO2 is greater than 50. ~ the patient is receiving an opioid, has unintended sedation assessed as RASS (-4) or (-5) and patient is currently not on mechanical ventilation. RASS scale (-4) is deep sedation with no response to voice but movement or eye opening to physical stimulation. RASS scale (-5) is unarousable. Patient Monitoring Once the patient has demonstrated a response to the naloxone, continue to monitor respiratory rate, depth, oxygen saturation and end-tidal CO2 (if available) every 15 minutes x 2, then every 30 minutes x 2, then every 1 hour x 1 after each naloxone dose. Consider transfer to ICU if patient respiratory parameters have not improved after 4 naloxone doses. Or naloxone (NARCAN) injection 0.2 mgJump to med 0.2 mg, Intramuscular, EVERY 2 MIN PRN, opioid reversal, Starting on Wed04/26/24 at 1502, Administer intramuscular if an intravenous route is not available and notify provider when administered. For unintended sedation or respiratory depression if all of the below criteria are met: ~ respiratory rate LESS than or EQUAL to 8. ~SaO2 less than 92% and or/end-tidal CO2 is greater than 50. ~ the patient is receiving an opioid, has unintended sedations assessed as RASS (-3), and is currently not on mechanical ventilation. RASS scale moderate (-3) is movement or eye opening to voice but no eye contact. Patient Monitoring Once the patient has demonstrated a response to the naloxone, continue to monitor respiratory rate, depth, oxygen saturation and end-tidal CO2 (if available) every 15 minutes x 2, then every 30 minutes x 2, then every 1 hour x 1 after each naloxone dose. Consider transfer to ICU if patient respiratory parameters have not improved after 4 naloxone doses. Or naloxone (NARCAN) injection 0.4 mgJump to med 0.4 mg, Intramuscular, EVERY 2 MIN PRN, opioid reversal, Starting on Wed04/26/24 at 1502, Administer intramuscular if an intravenous route is not available and notify provider when administered. For unintended sedation or respiratory depression if all of the below criteria are met: ~ respiratory rate LESS than or EQUAL to 8. ~ SaO2 less than 92% and or/end-tidal CO2 is greater than 50. ~ the patient is receiving an opioid, has unintended sedation assessed as RASS (-4) or (-5) and patient is currently not on mechanical ventilation. RASS scale (-4) is deep sedation with no response to voice but movement or eye opening to physical stimulation. RASS scale (-5) is unarousable. Patient Monitoring Once the patient has demonstrated a response to the naloxone, continue to monitor respiratory rate, depth, oxygen saturation and end-tidal CO2 (if available) every 15 minutes x 2, then every 30 minutes x 2, then every 1 hour x 1 after each naloxone dose. Consider transfer to ICU if patient respiratory parameters have not improved after 4 naloxone doses. Group 5: ondansetron (ZOFRAN ODT) ODT tab 4 mgJump to med 4 mg, Oral, EVERY 6 HOURS PRN, nausea, vomiting, Starting on Wed04/26/24 at 1432, This is Step 1 of nausea and vomiting management. If nausea not resolved in 15 minutes, go to Step 2 prochlorperazine (COMPAZINE). With dry hands, peel back foil backing and gently remove tablet. Do not push oral disintegrating tablet through foil backing. Administer immediately on tongue and oral disintegrating tablet dissolves in seconds, then swallow with saliva. Liquid not required. Or ondansetron (ZOFRAN) injection 4 mgJump to med 4 mg, Intravenous, EVERY 6 HOURS PRN, nausea, vomiting, Administer over 2-5 Minutes, Starting on Wed04/26/24 at 1432, Give IF patient unable to tolerate oral medication. This is Step 1 of nausea and vomiting management. If nausea not resolved in 15 minutes, go to Step 2 prochlorperazine (COMPAZINE). Irritant. Group 6: prochlorperazine (COMPAZINE) injection 5 mgJump to med 5 mg, Intravenous, EVERY 6 HOURS PRN, nausea, vomiting, Administer over 1-2 Minutes, Starting on Wed04/26/24 at 1432, IF patient unable to tolerate oral medication. This is Step 2 of nausea and vomiting management. Give if nausea not resolved 15 minutes after giving ondansetron (ZOFRAN). Or prochlorperazine (COMPAZINE) tablet 5 mgJump to med 5 mg, Oral, EVERY 6 HOURS PRN, vomiting, Starting on Wed04/26/24 at 1432, This is Step 2 of nausea and vomiting management. Give if nausea not resolved 15 minutes after giving ondansetron (ZOFRAN). Or prochlorperazine (COMPAZINE) suppository 12.5 mgJump to med 12.5 mg, Rectal, EVERY 12 HOURS PRN, nausea, vomiting, Starting on Wed04/26/24 at 1432, This is Step 2 of nausea and vomiting management. Give if nausea not resolved 15 minutes after giving ondansetron (ZOFRAN). Group 7: senna-docusate (SENOKOT-S/PERICOLACE) 8.6-50 MG per tablet 1 tabletJump to med 1 tablet, Oral, 2 TIMES DAILY PRN, constipation, Starting on Wed04/26/24 at 1432, If no bowel movement in 24 hours, increase to 2 tablets by mouth. IF more than 1 constipation PRN medication is ordered, administer step-byrd as indicated, moving to the next step ONLY if prior step ineffective. Step 1: senna-docusate (SENOKOT-S; PERICOLACE) OR bisacodyl (DULCOLAX) EC tablet Step 2: polyethylene glycol (MIRALAX/GLYCOLAX) Step 3: bisacodyl (DULCOLAX) suppository Step 4: enema Hold for loose stools. Or senna-docusate (SENOKOT-S/PERICOLACE) 8.6-50 MG per tablet 2 tabletJump to med 2 tablet, Oral, 2 TIMES DAILY PRN, constipation, Starting on Wed04/26/24 at 1432, IF more than 1 constipation PRN medication is ordered, administer step-byrd as indicated, moving to the next step ONLY if prior step ineffective. Step 1: senna-docusate (SENOKOT-S; PERICOLACE) OR bisacodyl (DULCOLAX) EC tablet Step 2: polyethylene glycol (MIRALAX/GLYCOLAX) Step 3: bisacodyl (DULCOLAX) suppository Step 4: enema Hold for loose stools. documented in this encounter Additional Health Concerns Infection Onset Date Last Indicated Resolved Time Rule Out COVID-19 04/26/2024 04/26/2024 04/26/2024 11:23 AM CDT documented as of this encounter Care Teams Center Lead Consultant Relationship Specialty Start Date End Date Arnoldo Mejia MD [address] [place] [address] PCP - General 08/26/21 documented as of this encounter
--- NOTE | 2024-05-09 13:29 | W.ANESCHARGE ---
Anesthesia Charges Start Date/Time Anesthesia Start Date: 05/09/24 Anesthesia Start Time: 13:10 Stop Date/Time Anesthesia Stop Date: 05/09/24 Anesthesia Stop Time: 13:52 Summary Extremes of Age - Over 70 or under 1: MDA
--- NOTE | 2024-05-09 13:56 | P.ANES_ITS ---
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
== END 2024-05-09 12:04 | disposition home or self-care (01) ==
LOC: INJ CL 12:04
PROVIDERS: PCP Surgery; Visit Provider Family Medicine
DX: M17.12 Unilateral primary osteoarthritis, left knee (principal); M25.562 Pain in left knee
CPT/HCPCS: 01991; 64624; 99100; J2704; J3490

== ENCOUNTER 2024-05-29 14:11 | Emergency (ER) | payer MEDICARE, BC, SELFPAY ==
[2024-05-29 14:15] VITALS: BP 145/77; PULSE 85; RESP 20; TEMP 36.5; O2SAT 92; BMI 43.5
--- NOTE | 2024-05-29 15:32 | ED.GENADULT ---
HPI - General Adult General Chief complaint: Extremity Pain/Injury, Lower Stated complaint: knee pain - trouble walking Time Seen by Provider: 05/29/24 15:21 History of Present Illness HPI narrative: Knee pain in both knees 05/09- left knee ablasion Fell a couple of days later and hit right knee- xray done then- no break Left knee twisted and snapped yesterday at [employer] while on scooter Hard to walk at home now 68-year-old woman presenting to the emergency department with concern of left knee pain. Frankly pain in both knees. Main issue though today is the left knee. Approximately 3 weeks ago had an ablation of 4 nerves in her left knee and a couple days later fell injuring her right knee. Imaging at that time was negative on the right knee. Today reaching into the freezer at [employer] while bracing off of her scooter felt her left knee pop/shift and has had marked increase in pain since. He has also been swelling. Does struggle with chronic pain. Has low-dose fentanyl patch as well as a receiving 10 mg Burt does every 4 hours if needed. Sees a pain clinic. Related Data Home Medications ?Medication ?Instructions ?Recorded ?Confirmed allopurinol 300 mg tablet mg 05/29/24 atorvastatin 20 mg tablet mg 05/29/24 blood sugar diagnostic (Contour 05/29/24 05/29/24 Next Test Strips) blood-glucose meter (Contour Next 05/29/24 05/29/24 EZ Meter) escitalopram oxalate 20 mg tablet mg 05/29/24 fentanyl 25 mcg/hr transdermal 05/29/24 patch ferrous sulfate 325 mg (65 mg mg 05/29/24 iron) tablet (FeroSul) furosemide 40 mg tablet mg 05/29/24 gabapentin 600 mg tablet mg 05/29/24 hydrocodone 10 mg-acetaminophen tab 05/29/24 325 mg tablet losartan 25 mg tablet mg 05/29/24 metformin 1,000 mg tablet mg 05/29/24 methocarbamol 750 mg tablet mg 05/29/24 nystatin 100,000 unit/gram topical topical 05/29/24 cream omeprazole 20 mg capsule,delayed mg 05/29/24 release pramipexole 0.125 mg tablet mg 05/29/24 triamterene 37.5 tab 05/29/24 mg-hydrochlorothiazide 25 mg tablet Review of Systems Status of ROS: Reports: 6 or more systems reviewed and unremarkable except as noted in History and below [facility] Social History Smoking Status: Never smoker Second hand tobacco smoke exposure: No How often do you have a drink containing alcohol: never How often do you have six or more drinks on one occasion: Never AUDIT-C Alcohol total score: 0 Non-prescribed substance use: denies use service: No Exam Narrative: Exam Narrative: Lying in bed with both legs out in front. Appears generally little uncomfortable. Rather prominent venous varicosities superficial over the left knee and lower leg. Knee appears generally swollen. Faint erythema in the area of the pes anserine bursa. Quite tender here as well. Tender enough to limit exam generally of the knee. Any flexion is painful. Does not appear to have any laxity to varus and valgus stressors. Not able to do Rodney's or Celia's. Const: Vital Signs, click to edit/add: Vital Signs - 24 hr 05/29/24 14:15 Temperature 97.7 F Pulse Rate [Pulse Oximeter] 85 Respiratory Rate 20 Blood Pressure [Le ft Upper Arm] 145/77 H Pulse Oximetry 92 Oxygen Delivery Me thod Room Air Documenting provider has reviewed patient's vital signs: yes Course Vital Signs Vital signs: Initial Vital Signs Temperature 97.7 F 05/29/24 14:15 Temperature Source Temporal Artery Scan 05/29/24 14:15 Pulse Rate 85 05/29/24 14:15 Respiratory Rate 20 05/29/24 14:15 Blood Pressure 145/77 H 05/29/24 14:15 Blood Pressure Mean 99 05/29/24 14:15 Blood Pressure Position Sitting 05/29/24 14:15 Pulse Oximetry 92 05/29/24 14:15 Oxygen Delivery Method Room Air 05/29/24 14:15 Vital Signs Temperature 97.7 F 05/29/24 14:15 Pulse Rate 85 05/29/24 14:15 Respiratory Rate 20 05/29/24 14:15 Blood Pressure 145/77 H 05/29/24 14:15 Pulse Oximetry 92 05/29/24 14:15 Oxygen Delivery Method Room Air 05/29/24 14:15 Temperature 97.7 F 05/29/24 14:15 Pulse Rate 85 05/29/24 14:15 Respiratory Rate 20 05/29/24 14:15 Blood Pressure 145/77 H 05/29/24 14:15 Pulse Oximetry 92 05/29/24 14:15 Oxygen Delivery Method Room Air 05/29/24 14:15 Medications Administered Medications: Discontinued Medications Generic Name Dose Route Start Last Admin Trade Name Jac PRN Reason Stop Dose Admin Oxycodone/Acetaminophen 2 tab 05/29/24 15:42 05/29/24 16:20 Oxycodone/Apap 5-325 Tablet PO 05/29/24 15:43 2 tab ONCE ONE Administration Medical Decision Making MDM Narrative Medical decision making narrative: I would suspect meniscal injury but may have had partial subluxation of knee or patella. Would warrant basic x-ray imaging. X-ray reviewed by me two-view of the left knee does not reveal any acute bony abnormality Radiology over-read as below Technique: Two views of the left knee Comparison: None Findings/impression : Normal alignment and mineralization without displaced fracture, dislocation or suspicious bony lesion. Moderate tricompartmental degenerative changes are noted. There are no soft tissue radiopaque foreign bodies. Discussed pain management. Does have a history of GI bleed. Is to avoid NSAIDs in this regard. Is given 2 tabs of 5/325 Percocet. On reassessment still with considerable pain but feels she could manage at home as opposed to be admitted. She does also have a knee immobilizer. Had originally been on her right leg but she will place on her left Will need to rest this knee and reassess as it calms down. See patient discharge plan for further discussion Medical Records Medical records reviewed: Yes I reviewed the patient's medical records Discharge Plan Discharge Clinical Impression: Knee strain, Knee joint pain, Effusion of knee Patient Disposition: Home w/ Parent or Adult Condition: Stable Additional Instructions: I would apply ice packs to your knee a few times daily over the next few days. I think you over this next week should probably be wearing a knee immobilizer to give your knee a chance to calm down with less use. Tomorrow morning I would call to Orthopedics at phone number [phone] for a follow-up appointment and re-evaluation. Please report your medication needs/prescription to your pain clinic and/or primary care provider. Additional Percocet from [facility]. Prescriptions: No Action furosemide 40 mg tablet Patient Comments: TAKE 1 TABLET BY MOUTH ONCE DAILY IN THE MORNING gabapentin 600 mg tablet Patient Comments: [NO ORIGINAL SIG] atorvastatin 20 mg tablet Patient Comments: [NO ORIGINAL SIG] (DME) blood-glucose meter [Contour Next EZ Meter] [facility] MISCELLANEOUS Patient Comments: USE TO TEST ONCE TO TWICE DAILY (DME) Contour Next Test Strips Strip MISCELLANEOUS Patient Comments: USE 1 STRIP TO CHECK GLUCOSE ONCE DAILY hydrocodone-acetaminophen 10-325 mg tablet Patient Comments: TAKE 1 TABLET BY MOUTH EVERY 4 HOURS NEEDED FOR PAIN . DO NOT EXCEED 6 PER 24 HOURS - USE DATES 05/21/24-06/19/24 methocarbamol 750 mg tablet Patient Comments: TAKE 1 TABLET BY MOUTH THREE TIMES DAILY NEEDED FOR MUSCLE SPASM ferrous sulfate [FeroSul] 325 mg (65 mg iron) tablet Patient Comments: TAKE 1 TABLET BY MOUTH EVERY DAY WITH A MEAL metformin 1,000 mg tablet Patient Comments: [NO ORIGINAL SIG] nystatin 100,000 unit/gram cream TOPICAL Patient Comments: APPLY CREAM TOPICALLY TO AFFECTED AREA TWICE DAILY losartan 25 mg tablet Patient Comments: [NO ORIGINAL SIG] pramipexole 0.125 mg tablet Patient Comments: [NO ORIGINAL SIG] triamterene-hydrochlorothiazid 37.5-25 mg tablet Patient Comments: [NO ORIGINAL SIG] omeprazole 20 mg capsule,delayed release(DR/EC) Patient Comments: [NO ORIGINAL SIG] allopurinol 300 mg tablet Patient Comments: [NO ORIGINAL SIG] fentanyl 25 mcg/hr patch 72 hour Patient Comments: APPLY 1 PATCH EXTERNALLY EVERY 72 HOURS (USE DATES 04/18/24-05/17/24) escitalopram oxalate 20 mg tablet Patient Comments: [NO ORIGINAL SIG] Follow Up/Referrals: Arnoldo Mejia MD [Primary Care Provider] - Stand Alone Forms: [employer] Info Instructions
--- NOTE | 2024-05-29 15:42 | CRLHL7_ITS ---
For Patients: As a result of the Cures Act, medical imaging exams and procedure reports are released immediately into your electronic medical record. You may view this report before your referring provider. If you have questions, please contact your health care provider. Indication: Injury Technique: Two views of the left knee Comparison: None Findings/impression : Normal alignment and mineralization without displaced fracture, dislocation or suspicious bony lesion. Moderate tricompartmental degenerative changes are noted. There are no soft tissue radiopaque foreign bodies. Dictated by Peña Powell MD @ 05/29/2024 4:31:04 PM (Electronically Signed)
[2024-05-29] MEDS: OxyCODONE/APAP 5-325 TABLET 2 TAB PO (16:20)
== END 2024-05-29 17:45 | disposition home or self-care (01) ==
PROVIDERS: Emergency Provider Family Medicine; PCP Surgery
DX: S86.912A Strain of unspecified muscle(s) and tendon(s) at lower leg level, left leg, initial encounter (principal); M25.462 Effusion, left knee; W05.1XXA Fall from non-moving nonmotorized scooter, initial encounter
CPT/HCPCS: 73560; 99284; A9270

== ENCOUNTER 2024-10-22 10:57 | Inpatient (IN) | payer MEDICARE, BC, SELFPAY ==
[2024-10-22] VITALS (22 sets, daily range): BP systolic 109–193; BP diastolic 85–101; PULSE 79–102; RESP 18–24; TEMP 36.4–36.7; O2SAT 86–95; BMI 43.5; BMI 49.7
--- NOTE | 2024-10-22 12:16 | ED_ITS ---
HPI - General Adult General Time Seen by Provider: 12:17 Date Seen: 10/22/24 Chief complaint: Shortness of Breath/Dyspnea Stated complaint: Lightheaded, short of breath Time Seen by Provider: 10/22/24 12:12 Source: patient and RN notes reviewed Mode of arrival: ambulatory Limitations: no limitations History of Present Illness HPI narrative: This 68-year-old female is coming into the ER for evaluation of feeling significantly short of breath, this really started this morning. She started coughing yesterday, believes she had fevers as she has felt warm and chilled overnight. She does not have a thermometer. She notes some sore throat, she has a headache with this. She is not aware of any ill contacts. She really is complaining of shortness of breath. She feels some chest congestion with coughing but is not having any chest pain. She notes some maybe increased swelling in her left lower leg. Her shortness of breath is certainly worsened with activity. She has felt lightheaded/dizzy and extremely tired with her current symptoms. She denies any history any chronic heart issues, no congestive heart failure, no history of lung problems or lung disease. She is not on chronic oxygen at home. Has a very remote history of smoking. Related Data Home Medications ?Medication ?Instructions ?Recorded ?Confirmed allopurinol 300 mg tablet mg 05/29/24 atorvastatin 20 mg tablet mg 05/29/24 blood sugar diagnostic (Contour 05/29/24 05/29/24 Next Test Strips) blood-glucose meter (Contour Next 05/29/24 05/29/24 EZ Meter) escitalopram oxalate 20 mg tablet mg 05/29/24 fentanyl 25 mcg/hr transdermal 05/29/24 patch ferrous sulfate 325 mg (65 mg mg 05/29/24 iron) tablet (FeroSul) furosemide 40 mg tablet mg 05/29/24 gabapentin 600 mg tablet mg 05/29/24 hydrocodone 10 mg-acetaminophen tab 05/29/24 325 mg tablet losartan 25 mg tablet mg 05/29/24 metformin 1,000 mg tablet mg 05/29/24 methocarbamol 750 mg tablet mg 05/29/24 nystatin 100,000 unit/gram topical topical 05/29/24 cream omeprazole 20 mg capsule,delayed mg 05/29/24 release pramipexole 0.125 mg tablet mg 08/05/24 triamterene 37.5 tab 05/29/24 mg-hydrochlorothiazide 25 mg tablet Review of Systems Status of ROS: Reports: 6 or more systems reviewed and unremarkable except as noted in History and below PFSH PFSH Surgical History History of arthroscopy of left knee (03/25/99) ?Z98.890 - Other specified postprocedural states (ICD-10) History of arthroscopy of right shoulder (05/26/99) ?Z98.890 - Other specified postprocedural states (ICD-10) S/P ORIF (open reduction internal fixation) fracture (11/07/04) ?Z98.890 - Other specified postprocedural states (ICD-10) ?Z87.81 - Personal history of (healed) traumatic fracture (ICD-10) S/P trigger finger release (05/19/05) ?Z98.890 - Other specified postprocedural states (ICD-10) History of carpal tunnel surgery of left wrist (05/19/05) ?Z98.890 - Other specified postprocedural states (ICD-10) History of removal of retained hardware (05/19/05) ?Z98.890 - Other specified postprocedural states (ICD-10) History of esophagogastroduodenoscopy ?Z98.890 - Other specified postprocedural states (ICD-10) History of tubal ligation ?Z98.51 - Tubal ligation status (ICD-10) History of gastric bypass ?Z98.84 - Bariatric surgery status (ICD-10) History of hysterectomy ?Z90.710 - Acquired absence of both cervix and uterus (ICD-10) History of hernia repair ?Z98.890 - Other specified postprocedural states (ICD-10) ?Z87.19 - Personal history of other diseases of the digestive system (ICD-10) History of cholecystectomy ?Z90.49 - Acquired absence of other specified parts of digestive tract (ICD- 10) History of breast biopsy ?Z98.890 - Other specified postprocedural states (ICD-10) History of appendectomy ?Z90.49 - Acquired absence of other specified parts of digestive tract (ICD- 10) S/P ORIF (open reduction internal fixation) fracture (04/09/21) ?Z98.890 - Other specified postprocedural states (ICD-10) ?Z87.81 - Personal history of (healed) traumatic fracture (ICD-10) S/P fusion of sacroiliac joint (~07/2021) ?Z98.1 - Arthrodesis status (ICD-10) Social History Smoking Status: Never smoker Second hand tobacco smoke exposure: No How often do you have a drink containing alcohol: never How often do you have six or more drinks on one occasion: Never AUDIT-C Alcohol total score: 0 Non-prescribed substance use: denies use service: No Exam Const: Vital Signs, click to edit/add: Vital Signs - 24 hr 10/22/24 11:24 12 12:24 10/22/24 12:24 Temperature 97.6 F Pulse Rate [Pulse Oximeter] 96 Respiratory Rate 20 Blood Pressure [Ri ght Upper Arm] 178/93 H Pulse Oximetry 90 91 92 Oxygen Delivery Me thod Room Air Nasal Cannula Oxygen Flow Rate 1 Patient is assisted from the wheelchair into the bed. After resting in the bed for few minutes and complaining of still feeling short of breath, pulse oximetry is placed an with good waveform she registers for about 84-87% while I am in there, highest I did see was 88%. She can speak in short phrases, voice mildly hoarse. Pupils equal round, sclera clear. Neck is thick, difficult to assess jugular venous distension but no adenopathy, not tender. Lungs with bibasilar crackles, no wheezing heard. She is not tachypneic. CV regular rate and rhythm, no significant murmur. Abdomen is obese but soft. She has pigmentary changes consistent with venous stasis on her left lower extremity, do see some varicosities. Left leg certainly has a bit more edema than the right but nothing tender or infected that I see at this time. Documenting provider has reviewed patient's vital signs: yes Course Course ED Course: Nursing staff did note that when patient came in she was 88% but with resting went up to 90%. Just with movement from the wheelchair to the bed she is hypoxic again, will place her on 1 L nasal cannula. Will start with portable chest x-ray and a full complement of labs including cardiac in D-dimer. Triple viral swab has been done by nursing staff and is pending. Patient certainly sounds to have an infectious respiratory etiology is the cause of her symptoms, need to rule out viral versus bacterial. Consider pulmonary emboli. Reevaluation(s) Time of Reevaluation #1: 13:57 Reevaluation #1: Patient is resting comfortably, reviewed that her chest x-ray looks more like congestive changes. Her C reactive protein is quite elevated though. The acuity of her symptoms in some of the accompanying symptoms which suggest more of an infection. D-dimer is mildly elevated. We are going to proceed with chest CT PE protocol to ensure no underlying thromboembolic disease with pul monary emboli and to see if there is any evidence to suggest that this could be pneumonia. She believes she has had a recent echo, will see if we can find that in epic when there is time. Time of Reevaluation #2: 15:30 Reevaluation #2: Patient is in the restroom, updated her . Will have to talk to the hospitalist as well. Consultations Consultation #1: Have spoken with the hospitalist, she accepts cares. Time: 15:40 Vital Signs Vital signs: Initial Vital Signs Temperature 97.6 F 10/22/24 11:24 Temperature Source Temporal Artery Scan 10/22/24 11:24 Pulse Rate 96 10/22/24 11:24 Respiratory Rate 20 10/22/24 11:24 Blood Pressure 178/93 H 10/22/24 11:24 Blood Pressure Mean 121 H 10/22/24 11:24 Pulse Oximetry 90 10/22/24 11:24 Oxygen Delivery Method Room Air 10/22/24 11:24 Vital Signs Temperature 97.6 F 10/22/24 11:24 Pulse Rate 96 10/22/24 11:24 Respiratory Rate 20 10/22/24 11:24 Blood Pressure 178/93 H 10/22/24 11:24 Pulse Oximetry 90 10/22/24 11:24 Oxygen Delivery Method Room Air 10/22/24 11:24 Temperature 97.6 F 10/22/24 11:24 Pulse Rate 96 10/22/24 11:24 Respiratory Rate 20 10/22/24 11:24 Blood Pressure 178/93 H 10/22/24 11:24 Pulse Oximetry 92 10/22/24 12:24 Oxygen Delivery Method Nasal Cannula 10/22/24 12:24 Oxygen Flow Rate 1 10/22/24 12:24 Medications Administered Medications: Discontinued Medications Generic Name Dose Route Start Last Admin Trade Name Jac PRN Reason Stop Dose Admin Acetaminophen 1,000 mg 10/22/24 13:36 10/22/24 13:41 Acetaminophen 500 Mg Tablet PO 10/22/24 13:37 1,000 mg ONCE ONE Administration Medical Decision Making Lab Data Lab results reviewed: Yes I reviewed the patient's lab results Labs: Lab Results 10/22/24 10/22/24 10/22/24 Range/Units 11:31 12:28 12:45 WBC 10.71 (4.50-11.00) K/uL RBC 4.19 (4.00-5.20) m/uL Hgb 12.8 (12.0-16.0) gm/dL Hct 39.6 (33.0-51.0) % MCV 95 (80-100) fL MCH 31 (26-34) pg MCHC 32 (32-36) gm/dL RDW Coeff of Francisca 14.3 (11.5-15.5) % Plt Count 155 (140-440) K/uL Neut % (Auto) 85.4 H (42.0-72.0) % Lymph % (Auto) 8.0 L (20-44) % Braxton % (Auto) 5.9 (0.0-11.0) % Eos % (Auto) 0.5 (0.0-7.0) % Baso % (Auto) 0.1 (0.0-3.0) % Neut # (Auto) 9.10 H (1.7-7.0) K/uL Lymph # (Auto) 0.90 (0.90-2.90) K/uL Braxton # (Auto) 0.60 (0.00-0.90) K/UL Eos # (Auto) 0.05 (0.00-0.50) K/uL Baso # (Auto) 0.01 (0.00-0.30) K/uL Abs Immat Gran (auto) 0.01 (0.00-0.30) K/uL Imm/Tot Granulo (auto) 0.1 % D-Dimer Quant (PE/DVT) 0.73 H (0.00-0.50) ug/ml VBG pH 7.418 (7.32-7.43) VBG pCO2 50 (40-50) mmHG VBG pO2 48.2 H (25-47) mmHG VBG HCO3 32 H (21-28) mmol/L Sodium 129 L (135-149) mmol/L Potassium 3.7 (3.6-5.1) mmol/L Chloride 91 L (96-114) mmol/L Carbon Dioxide 30 (20-32) mmol/L Anion Gap 8 (7-15) mEq/L BUN 14 (7-30) mg/dL Creatinine 0.5 (0.5-1.5) mg/dL Estimated Creat Clear 39.50 Estimated GFR 101 ml/min Glucose 175 H (60-115) mg/dL Lactate 1.2 (0.5-1.9) mmol/L Calcium 8.9 (8.4-10.6) mg/dL Total Bilirubin 0.8 (0.1-1.5) mg/dL AST 26 (12-35) U/L ALT 23 (4-35) U/L Alkaline Phosphatase 76 (40-150) U/L Troponin I < 0.01 L (0.01-0.04) ng/mL C-Reactive Protein 6.3 H (0.5-1.0) mg/dL NT-Pro-B Natriuret Pep 391 pg/mL Total Protein 7.4 (6.0-8.3) g/dL Albumin 4.5 (3.3-5.0) g/dL Procalcitonin 0.09 (<0.50) ng/mL SARS-CoV-2 (PCR) Negative SARS-CoV-2 (Negative) Influenza Type A (PCR) Negative PCR FLU A (Negative) Influenza Type B (PCR) Negative PCR FLU B (Negative) RSV (PCR) Negative PCR RSV (Negative) Lab Acknowledgement Test Added Imaging Data Chest x-ray: Attestation: I have reviewed the pertinent imaging results. Radiologist's impression: Patient: ZECHARIAH BRUNSON Facility:?[facility] Patient ID:?[id number] Site Patient ID:?[id number]. Site :?[id number] Study:?XRay-Chest 1 VIEW PORTABLE-10/22/2024 12:43:41 PM Ordering Physician:?Marycruz Draper Final Report: INDICATION: Cough, hypoxia TECHNIQUE: 1 view chest radiograph COMPARISON: None. FINDINGS: Devices: Stent mounted valve prosthesis. Lung volumes are good. Prominent pulmonary vascular markings. Peripheral septal lines. Hazy mid to lower lung opacities. No pleural effusion. No pneumothorax. Heart size is large. IMPRESSION: Pulmonary edema. No pleural effusion seen. Dictated by Naa Rodgers MD @ 10/22/2024 1:21:08 PM (Electronic Signature) CT scan - chest: Attestation: I have reviewed the pertinent imaging results. My impression: Did review chest CT, do question if I see some infectious etiology but also possibly edema. Await Radiology over-read. Radiologist's impression: Patient: ZECHARIAH BRUNSON Facility:?[facility] Patient ID:?[id number] Site Patient ID:?[id number]. Site :?[id number] Study:?CT-Chest Angio PE 95CC ISOVUE 370-10/22/2024 2:30:07 PM Ordering Physician:?Marycruz Draper Final Report: INDICATION: Dyspnea. Chest pain. TECHNIQUE: Multiplanar CT pulmonary angiogram was performed after the administration of 100 mL of Omnipaque 350 intravenous contrast. COMPARISON: Chest radiograph 10/22/2024. FINDINGS: Lower neck: The visualized thyroid is unremarkable. Cardiovascular: Contrast opacification of the pulmonary arterial tree is adequate. Heart size is enlarged. Thoracic aorta is normal in caliber. Mildly enlarged main pulmonary artery measuring 3.5 cm. No significant atherosclerotic calcifications of the aortic arch. Dense coronary arterial calcifications. No pulmonary embolus. TAVR. Mediastinum and lymph nodes: Prominent mediastinal lymph nodes, probably reactive. No pathologic mediastinal or hilar lymphadenopathy by size criteria. Lungs: Tree-in-bud nodularity and scattered airspace ground-glass opacifications, predominantly involving the right lower lobe. Mild pulmonary vascular congestion and interstitial edema. Dependent atelectasis. Linear bandlike opacification of the lung bases bilaterally, likely subsegmental atelectasis and/or scarring. Mosaic attenuation pattern of opacification diffusely Airways: The trachea remains patent and midline. Mild diffuse peribronchial wall thickening. Pleura: No pleural effusions or pneumothorax Chest wall: Unremarkable. Prominent axillary lymph nodes that do not meet size criteria for lymphadenopathy. Bones: No acute osseous abnormalities. Mild degenerative changes of the thoracic spine. Old healed right-sided rib fracture. Upper abdomen: No acute findings in the visualized upper abdomen. No reflux of contrast material into the IVC. IMPRESSION: 1. No pulmonary embolus. No CT evidence of right heart strain. 2. Tree-in-bud nodularity and scattered ground-glass airspace opacification, probably infectious in etiology. Repeat CT in 3-6 months to assess stability or resolution. 3. Mildly dilated main pulmonary artery, nonspecific and can be seen the setting of pulmonary arterial hypertension. 4. Cardiomegaly with mild pulmonary vascular congestion and interstitial edema. Please note that all CT scans at this facility use dose modulation, iterative reconstruction, and/or weight-based dosing when appropriate to reduce radiation dose to as low as reasonably achievable. Dictated by Lance Dye MD @ 10/22/2024 2:49:06 PM (Electronic Signature) ECG Data Attestation: I personally reviewed and interpreted this ECG as follows: (Normal sinus rhythm, incomplete right bundle branch block. No definitive ischemia noted.) Prior ECG tracings: not available for review Discharge Plan Discharge Clinical Impression: Hypoxia Congestive heart failure Qualifiers: Heart failure type: unspecified Heart failure chronicity: acute Qualified Code(s): I50.9 - Heart failure, unspecified Community acquired pneumonia Qualifiers: Laterality: unspecified laterality Qualified Code(s): J18.9 - Pneumonia, unspecified organism Patient Disposition: Admitted As Observation
--- NOTE | 2024-10-22 12:24 | CRLHL7_ITS ---
For Patients: As a result of the Cures Act, medical imaging exams and procedure reports are released immediately into your electronic medical record. You may view this report before your referring provider. If you have questions, please contact your health care provider. INDICATION: Cough, hypoxia TECHNIQUE: 1 view chest radiograph COMPARISON: None. FINDINGS: Devices: Stent mounted valve prosthesis. Lung volumes are good. Prominent pulmonary vascular markings. Peripheral septal lines. Hazy mid to lower lung opacities. No pleural effusion. No pneumothorax. Heart size is large. IMPRESSION: Pulmonary edema. No pleural effusion seen. Dictated by Naa Rodgers MD @ 10/22/2024 1:21:08 PM (Electronically Signed)
[2024-10-22 12:27] LABS: PCR FLU A Negative PCR FLU A (Negative); PCR FLU B Negative PCR FLU B (Negative); PCR RSV Negative PCR RSV (Negative); SARS PCR* Negative SARS-CoV-2 (Negative)
[2024-10-22 12:50] LABS: HCO3 VBG 32 mmol/L (21-28); Lactate* 1.2 mmol/L (0.5-1.9); PCO2 VBG 50 mmHG (40-50); PO2 VBG 48.2 mmHG (25-47); pH VBG 7.418 (7.32-7.43)
[2024-10-22 12:52] LABS: Basophils Absolute Auto 0.01 K/uL (0.00-0.30); Basophils Percent Auto 0.1 % (0.0-3.0); Eosinophils Absolute Auto 0.05 K/uL (0.00-0.50); Eosinophils Percent Auto 0.5 % (0.0-7.0); Hematocrit 39.6 % (33.0-51.0); Hemoglobin* 12.8 gm/dL (12.0-16.0); Immature Granulocytes Abs Auto 0.01 K/uL (0.00-0.30); Immature Granulocytes Pct Auto 0.1 %; Mean Corpuscular HGB Conc 32 gm/dL (32-36); Mean Corpuscular Hemoglobin 31 pg (26-34); Mean Corpuscular Volume 95 fL (80-100); Monocytes Percent Auto 5.9 % (0.0-11.0); Neutrophils Percent Auto 85.4 % (42.0-72.0); Platelet Count* 155 K/uL (140-440); RDW Coefficient of Variation % 14.3 % (11.5-15.5); Red Blood Count 4.19 m/uL (4.00-5.20); White Blood Count* 10.71 K/uL (4.50-11.00)
[2024-10-22 12:55] LABS: Slide Review Reflex No
[2024-10-22 13:12] LABS: Albumin* 4.5 g/dL (3.3-5.0); Chloride* 91 mmol/L (96-114); Sodium* 129 mmol/L (135-149)
[2024-10-22 13:13] LABS: Potassium* 3.7 mmol/L (3.6-5.1)
[2024-10-22 13:15] LABS: Anion Gap 8 mEq/L (7-15); Carbon Dioxide* 30 mmol/L (20-32); Creatinine* 0.5 mg/dL (0.5-1.5); Estimated Glomerular Filt Rate 101 ml/min
[2024-10-22 13:16] LABS: Alanine Aminotransferase* 23 U/L (4-35); Alkaline Phosphatase* 76 U/L (40-150); Aspartate Amino Transferase* 26 U/L (12-35); Bilirubin Total* 0.8 mg/dL (0.1-1.5); Blood Urea Nitrogen* 14 mg/dL (7-30); Calcium* 8.9 mg/dL (8.4-10.6); Glucose* 175 mg/dL (60-115); Total Protein* 7.4 g/dL (6.0-8.3)
[2024-10-22 13:17] LABS: D Dimer Quantitative* 0.73 ug/ml (0.00-0.50)
[2024-10-22 13:19] LABS: C Reactive Protein* 6.3 mg/dL (0.5-1.0)
[2024-10-22 13:28] LABS: NT Pro B Type NatriureticPept* 391 pg/mL
[2024-10-22 13:33] LABS: Procalcitonin* 0.09 ng/mL (<0.50)
[2024-10-22 13:36] LABS: Troponin I* < 0.01 ng/mL (0.01-0.04)
[2024-10-22] MEDS: ACETAMINOPHEN 500 MG TABLET 1000 MG PO (13:41)
--- NOTE | 2024-10-22 13:56 | CRLHL7_ITS ---
For Patients: As a result of the Century Cures Act, medical imaging exams and procedure reports are released immediately into your electronic medical record. You may view this report before your referring provider. If you have questions, please contact your health care provider. INDICATION: Dyspnea. Chest pain. TECHNIQUE: Multiplanar CT pulmonary angiogram was performed after the administration of 100 mL of Omnipaque 350 intravenous contrast. COMPARISON: Chest radiograph 10/22/2024. FINDINGS: Lower neck: The visualized thyroid is unremarkable. Cardiovascular: Contrast opacification of the pulmonary arterial tree is adequate. Heart size is enlarged. Thoracic aorta is normal in caliber. Mildly enlarged main pulmonary artery measuring 3.5 cm. No significant atherosclerotic calcifications of the aortic arch. Dense coronary arterial calcifications. No pulmonary embolus. TAVR. Mediastinum and lymph nodes: Prominent mediastinal lymph nodes, probably reactive. No pathologic mediastinal or hilar lymphadenopathy by size criteria. Lungs: Tree-in-bud nodularity and scattered airspace ground-glass opacifications, predominantly involving the right lower lobe. Mild pulmonary vascular congestion and interstitial edema. Dependent atelectasis. Linear bandlike opacification of the lung bases bilaterally, likely subsegmental atelectasis and/or scarring. Mosaic attenuation pattern of opacification diffusely Airways: The trachea remains patent and midline. Mild diffuse peribronchial wall thickening. Pleura: No pleural effusions or pneumothorax Chest wall: Unremarkable. Prominent axillary lymph nodes that do not meet size criteria for lymphadenopathy. Bones: No acute osseous abnormalities. Mild degenerative changes of the thoracic spine. Old healed right-sided rib fracture. Upper abdomen: No acute findings in the visualized upper abdomen. No reflux of contrast material into the IVC. IMPRESSION: 1. No pulmonary embolus. No CT evidence of right heart strain. 2. Tree-in-bud nodularity and scattered ground-glass airspace opacification, probably infectious in etiology. Repeat CT in 3-6 months to assess stability or resolution. 3. Mildly dilated main pulmonary artery, nonspecific and can be seen the setting of pulmonary arterial hypertension. 4. Cardiomegaly with mild pulmonary vascular congestion and interstitial edema. Please note that all CT scans at this facility use dose modulation, iterative reconstruction, and/or weight-based dosing when appropriate to reduce radiation dose to as low as reasonably achievable. Dictated by Lance Dye MD @ 10/22/2024 2:49:06 PM (Electronically Signed)
[2024-10-22] MEDS: AZITHROMYCIN 250 MG TABLET 500 MG PO (15:48)
[2024-10-22] MEDS: cefTRIAXone 1 GM in 0.9 % SODIUM CHLORIDE Mini-bag 100 ML IVPB (15:48)
[2024-10-22] MEDS: FUROSEMIDE 10 MG/ML inj 40 MG IVP (18:00)
[2024-10-22] MEDS: ACETAMINOPHEN 325 MG TABLET PO (18:00)
--- NOTE | 2024-10-22 18:06 | P.IMHP_ITS ---
Hospitalist- H&P: HPI History of Present Illness Date Seen: 10/22/24 Chief complaint: Lightheaded Narrative: ADMISSION HISTORY AND PHYSICAL - HOSPITALIST Chief Complaint: Shortness of breath, cough HPI: This is 68-year-old white female with a history of pneumonia requiring hospitalization earlier this year, chronic pain, ER COURSE: CODE STATUS: EMERGENCY CONTACT PLAN: I've updated the PFSH, medications and allergies in the Expanse tabs. INVESTIGATIONS: LABS/MICRO/ECG/IMAGING REVIEW OF SYSTEMS: 12-point ROS completed with patient and negative unless otherwise stated in HPI or below. PHYSICAL EXAM: CONSTITUTIONAL: Conversive, good historian. A/O. Knows setting and context. GENERAL: Well-developed and above ideal body weight, in no respiratory distress. VITAL SIGNS: see record. HEENT: Sclerae are anicteric. No petechiae. CARDIAC: rhythm is regular. There is no S3 or rub. No harsh murmurs. Extremities show trace edema with symmetrical pulses. PULM: good air entry with no wheeze. NEURO: Speech is fluent. A brief neurologic exam is negative. SKIN: No rashes, petechiae, concerning changes PSYCHIATRIC: Euthymic. ADMIT TO MEDSURG: CCU FLOOR CARE DVT: Lovenox GI: PO intake Time spent: Today I spent 75 minutes seeing the patient, discussing the patient with ER staff, reviewing Expanse and EPIC notes/diagnostics, discussing the care plan with our care time that includes social work, PT/OT, pharmacy, RT, correction and documenting my impressions and plan in the medical record. MEDICAL NECESSITY FOR HOSPITALIZATION Anticipated midnights in the hospital: Admitting diagnosis: Risk of morbidity and mortality: high Acuity is characterized as high and reflected in: This patient will require hospital services as outlined in the assessment and plan in order to stabilize and be safely discharged to a lower level of care. Because of the risk and acuity as described above, this patient cannot be managed at a lower level of care. LENGTH OF STAY: 2 IP ? Anticipated LOS>2 midnights due to acuity of clinical presentation requiring inpatient level of care Radha Romo is a 68 year old female Final Impressions: 1. Normal LV size, moderately increased wall thickness, normal global systolic function with an estimated EF of 55 - 60%. 2. Right ventricular cavity size is normal, global systolic RV function is normal. 3. Mildly enlarged left atrium. 4. The aortic valve is functioning 29 mm Griselda 3 bioprosthesis AVR, moderate stenosis and mild regurgitation. The aortic valve peak velocity is 3.1 m/s, the peak gradient is 37 mmHg, and the mean gradient is 17 mmHg. The aortic valve area is 1.64 cm?? with a dimensionless index of 0.35. The stroke volume index is 47.5 ml/m??. Note that there is an increase in peak velocity across the TAVR THV on todays study as compared to previous ( Vmax 1.9m/s). Suggest clinical correlation and CT morphology to evaluate the TAVR valve. 5. The mitral valve is sclerotic, trace mitral regurgitation. 6. Tricuspid valve is normal. 7. No pericardial effusion. PFSH PFS Medical History (Updated 10/23/24 @ 02:12 by Malia Monroy MD) Osteoarthritis of right hip ?M16.11 - Unilateral primary osteoarthritis, right hip (ICD-10) Gout ?M10.9 - Gout, unspecified (ICD-10) Ovarian cyst ?N83.209 - Unspecified ovarian cyst, unspecified side (ICD-10) Surgical History (Updated 10/23/24 @ 02:12 by Malia Monroy MD) History of left knee replacement ?Z96.652 - Presence of left artificial knee joint (ICD-10) History of arthroscopy of left knee (03/25/99) ?Z98.890 - Other specified postprocedural states (ICD-10) History of arthroscopy of right shoulder (05/26/99) ?Z98.890 - Other specified postprocedural states (ICD-10) S/P ORIF (open reduction internal fixation) fracture (11/07/04) ?Z98.890 - Other specified postprocedural states (ICD-10) ?Z87.81 - Personal history of (healed) traumatic fracture (ICD-10) S/P trigger finger release (05/19/05) ?Z98.890 - Other specified postprocedural states (ICD-10) History of carpal tunnel surgery of left wrist (05/19/05) ?Z98.890 - Other specified postprocedural states (ICD-10) History of removal of retained hardware (05/19/05) ?Z98.890 - Other specified postprocedural states (ICD-10) History of esophagogastroduodenoscopy ?Z98.890 - Other specified postprocedural states (ICD-10) History of tubal ligation ?Z98.51 - Tubal ligation status (ICD-10) History of gastric bypass ?Z98.84 - Bariatric surgery status (ICD-10) History of hysterectomy ?Z90.710 - Acquired absence of both cervix and uterus (ICD-10) History of hernia repair ?Z98.890 - Other specified postprocedural states (ICD-10) ?Z87.19 - Personal history of other diseases of the digestive system (ICD-10) History of cholecystectomy ?Z90.49 - Acquired absence of other specified parts of digestive tract (ICD- 10) History of breast biopsy ?Z98.890 - Other specified postprocedural states (ICD-10) History of appendectomy ?Z90.49 - Acquired absence of other specified parts of digestive tract (ICD- 10) S/P ORIF (open reduction internal fixation) fracture (04/09/21) ?Z98.890 - Other specified postprocedural states (ICD-10) ?Z87.81 - Personal history of (healed) traumatic fracture (ICD-10) S/P fusion of sacroiliac joint (~07/2021) ?Z98.1 - Arthrodesis status (ICD-10) Social History What is your current living situation?: I presently have a place to live Problems where you live: no known problems Problems where you live details: NA In the past 12 months, utilities in danger of being shut off: no In past 12 months, lack of transportation kept you from medical appts, meetings, work, or getting things needed for daily living: no In the past 12 mos, have been you worried that your food would run out before you had money to buy more?: never true In the past 12 mos, the food you bought just didn't last and you didn't have money to buy more?: never true Highest level of school completed/degree received: 12th grade, no diploma Smoking Status: Former smoker Do you use any of these nicotine containing products: None Second hand tobacco smoke exposure: No How often do you have a drink containing alcohol: never How often do you have six or more drinks on one occasion: Never AUDIT-C Alcohol total score: 0 Non-prescribed substance use: denies use Caffeine: Yes (coffee) How often does anyone, including family, friends and others, physically hurt you : unable to answer How often does anyone, including family, friends and others, insult or talk down to you: unable to answer How often does anyone, including family, friends and others, threaten you with harm: unable to answer How often does anyone, including family, friends and others, scream or curse at you: unable to answer service: No Meds Home Medications and Allergies Home Medications ?Medication ?Instructions ?Recorded ?Confirmed ?Type allopurinol 300 mg tablet mg 05/29/24 History atorvastatin 20 mg tablet mg 05/29/24 History blood sugar diagnostic (Contour 05/29/24 05/29/24 History Next Test Strips) blood-glucose meter (Contour Next 05/29/24 05/29/24 History EZ Meter) escitalopram oxalate 20 mg tablet mg 05/29/24 History fentanyl 25 mcg/hr transdermal 05/29/24 History patch ferrous sulfate 325 mg (65 mg mg 05/29/24 History iron) tablet (FeroSul) furosemide 40 mg tablet mg 05/29/24 History gabapentin 600 mg tablet mg 05/29/24 History hydrocodone 10 mg-acetaminophen tab 05/29/24 History 325 mg tablet losartan 25 mg tablet mg 05/29/24 History metformin 1,000 mg tablet mg 05/29/24 History methocarbamol 750 mg tablet mg 05/29/24 History nystatin 100,000 unit/gram topical topical 05/29/24 History cream omeprazole 20 mg capsule,delayed mg 05/29/24 History release pramipexole 0.125 mg tablet mg 05/29/24 History triamterene 37.5 tab 05/29/24 History mg-hydrochlorothiazide 25 mg tablet Allergies Allergy/AdvReac Type Severity Reaction Status Date / Time cefazolin Allergy Severe Anaphylaxis Verified 10/22/24 17:27 alendronate sodium Allergy Unknown Verified 10/22/24 17:27 oxycodone AdvReac Hallucinati Verified 10/22/24 17:27 ng salicylates AdvReac Verified 10/22/24 17:27 Exam Const: Vital Signs, click to edit/add: Vital Signs - 24 hr 10/22/24 11:24 10/22/24 12:24 10/22/24 12:24 Temperature 97.6 F Pulse Rate Pulse Rate [Pulse Oximeter] 96 Pulse Rate [Right Pulse Oximeter] Respiratory Rate 20 Blood Pressure Blood Pressure [Ri ght Arm] Blood Pressure [Ri ght Upper Arm] 178/93 H Pulse Oximetry 90 91 92 Oxygen Delivery Me thod Room Air Nasal Cannula Oxygen Flow Rate 1 10/22/24 12:53 10/22/24 13:00 10/22/24 13:02 Temperature Pulse Rate 102 H 90 88 Pulse Rate [Pulse Oximeter] Pulse Rate [Right Pulse Oximeter] Respiratory Rate Blood Pressure 170/89 H Blood Pressure [Ri ght Arm] Blood Pressure [Ri ght Upper Arm] Pulse Oximetry 86 L 94 94 Oxygen Delivery Me thod Oxygen Flow Rate 10/22/24 13:15 10/22/24 13:30 10/22/24 13:32 Temperature Pulse Rate 88 87 87 Pulse Rate [Pulse Oximeter] Pulse Rate [Right Pulse Oximeter] Respiratory Rate Blood Pressure 164/91 H Blood Pressure [Ri ght Arm] Blood Pressure [Ri ght Upper Arm] Pulse Oximetry 93 95 89 Oxygen Delivery Me thod Oxygen Flow Rate 10/22/24 13:45 10/22/24 14:00 10/22/24 14:02 Temperature Pulse Rate 87 85 89 Pulse Rate [Pulse Oximeter] Pulse Rate [Right Pulse Oximeter] Respiratory Rate Blood Pressure 149/100 H Blood Pressure [Ri ght Arm] Blood Pressure [Ri ght Upper Arm] Pulse Oximetry 93 93 95 Oxygen Delivery Me thod Oxygen Flow Rate 10/22/24 14:34 10/22/24 14:35 10/22/24 14:45 Temperature Pulse Rate 95 83 82 Pulse Rate [Pulse Oximeter] Pulse Rate [Right Pulse Oximeter] Respiratory Rate Blood Pressure 193/101 H 164/96 H Blood Pressure [Ri ght Arm] Blood Pressure [Ri ght Upper Arm] Pulse Oximetry 90 93 94 Oxygen Delivery Me thod Oxygen Flow Rate 10/22/24 14:46 10/22/24 15:00 10/22/24 15:02 Temperature Pulse Rate 81 85 82 Pulse Rate [Pulse Oximeter] Pulse Rate [Right Pulse Oximeter] Respiratory Rate Blood Pressure 173/96 H Blood Pressure [Ri ght Arm] Blood Pressure [Ri ght Upper Arm] Pulse Oximetry 94 93 95 Oxygen Delivery Me thod Oxygen Flow Rate 10/22/24 15:33 10/22/24 16:21 10/22/24 16:21 Temperature 97.9 F Pulse Rate Pulse Rate [Pulse Oximeter] Pulse Rate [Right Pulse Oximeter] 79 Respiratory Rate 24 24 Blood Pressure 109/97 H Blood Pressure [Ri ght Arm] 179/91 H Blood Pressure [Ri ght Upper Arm] Pulse Oximetry 92 93 Oxygen Delivery Me thod Nasal Cannula Nasal Cannula Oxygen Flow Rate 1 1 Hospitalist - H&P: Result Labs Labs: Short CBC 10/22/24 Range/Units 12:45 WBC 10.71 (4.50-11.00) K/uL Hgb 12.8 (12.0-16.0) gm/dL Hct 39.6 (33.0-51.0) % Plt Count 155 (140-440) K/uL BMP 10/22/24 12:45 Sodium 129 L Potassium 3.7 Chloride 91 L Carbon Dioxide 30 BUN 14 Creatinine 0.5 Glucose 175 H Calcium 8.9 Cardiac Enzymes 10/22/24 Range/Units 12:45 Troponin I < 0.01 L (0.01-0.04) ng/mL Liver Function 10/22/24 Range/Units 12:45 Total Bilirubin 0.8 (0.1-1.5) mg/dL AST 26 (12-35) U/L ALT 23 (4-35) U/L Alkaline Phosphatase 76 (40-150) U/L Albumin 4.5 (3.3-5.0) g/dL Assessment and Plan Assessment and plan (1) Acute respiratory failure with hypoxia: Problem comment: Related to right lower lobe pneumonia and acute congestive heart failure Status: Acute (2) Community acquired pneumonia: Problem comment: RLL tree-in-bud nodularity; ground glass opacifications. Azithromycin and Rocephin given in the ED but I see a cefazolin anaphylaxis allergy. No reaction seen from patient. started Levaquin for am dosing. No steroids at this time. DuoNebs, RT consult, oxygen to titrate, Aerobika/IS. Status: Acute (3) Congestive heart failure: Problem comment: Just had echo in 10/17; 40mg Lasix x 1 - normally gets lasix 40 q am. we can adjust based on clinical response. Status: Acute (4) Hyponatremia: Problem comment: 129 with a glucose at 175 holding maxzide Status: Acute (5) CARA on CPAP: Problem comment: - will bring in unit from home tomorrow Status: Acute (6) Status post transcatheter aortic valve replacement (TAVR) using bioprosthesis: Problem comment: The aortic valve is functioning 29 mm Griselda 3 bioprosthesis AVR -several years ago Status: Acute (7) Type 2 diabetes mellitus: Problem comment: -monotherapy with metformin. -on hold. Accu-Cheks with sliding scale insulin. Status: Acute (8) Hypertension: Problem comment: Low-sodium. Holding Maxzide. consider different agent; following for now. Status: Acute (9) Hypothyroidism: Problem comment: -adding TSH Status: Acute (10) Major depression: Problem comment: continue home med Status: Acute (11) Osteoporosis: Status: Acute
--- NOTE | 2024-10-22 19:35 | PC.NURSE ---
Nursing Care Hours: [id number] Pt this shift arrived via W/C alert and oriented, SOB on 1L NC. SB assist with walker and gait belt and cane in room. Pt voiding frequently d/t lasix therapy. By the fifth trip to , pt becoming wheezing and exhausted. BSC set up next to recliner chair and pt allowed to use independently. Pt is SL, gait steady. LS wheezing and coarse crackles. Tight but productive cough, green and thick. NSR on tele. HTN noted with headache. Pain reported to back and bilat legs, both chronic and pt has not taken home pain meds. Tylenol given.
[2024-10-22] MEDS: GABAPENTIN 600 MG TABLET 1200 MG PO (20:16)
[2024-10-22] MEDS: ENOXAPARIN 40 MG/0.4 ML INJ SUBCUT (20:16)
[2024-10-22] MEDS: PRAMIPEXOLE 0.125 MG TABLET 0.25 MG PO (20:16)
[2024-10-22] MEDS: ATORVASTATIN 10 MG TABLET 20 MG PO (20:16)
[2024-10-22] MEDS: SODIUM CHLORIDE 0.9 % (FLUSH) 10 ML SYRINGE 5 ML IVF (20:17)
[2024-10-22] MEDS: fentaNYL 25 MCG/HR PATCH 1 PATCH TRANSDERMA (20:17)
[2024-10-22] MEDS: IPRAT-ALBUT 0.5-2.5 MG/3 ML NEB 1 NEB IH ×2 (20:17→23:48)
[2024-10-22] MEDS: HYDROCODONE-ACETAMIN 5-325 MG 1 TAB 2 TAB PO (20:21)
[2024-10-22] MEDS: guaiFENesin 100 MG/ML CUP PO (23:24)
[2024-10-23] VITALS (8 sets, daily range): BP systolic 137–161; BP diastolic 74–96; PULSE 78–92; RESP 18–20; TEMP 36.4–36.8; O2SAT 90–94
--- NOTE | 2024-10-23 02:29 | PM.IMHP1 ---
Hospitalist- H&P: HPI History of Present Illness Date Seen: 10/23/24 Chief complaint: Lightheaded Narrative: Hospitalist- H&P: HPI History of Present Illness Date Seen: 10/22/24 Chief complaint: Lightheaded Narrative: ADMISSION HISTORY AND PHYSICAL - HOSPITALIST Chief Complaint: Shortness of breath, cough HPI: This is 68-year-old white female with a history of pneumonia requiring hospitalization earlier this year, chronic pain, depression, HLP, DM who presents with cough and shortness of breath. She had a TAVR a few years ago and just recently had an echo this month. That echo showed some possible increasing pressures across the valve. But otherwise maintained left ventricular function. She started to feel run down a couple of days ago and it rapidly worsened till today when she had trouble catching her breath. No fever but did report chills. Dyspnea with any exertion. No diarrhea. No vomiting. No chest pressure. ER COURSE: CTA, chest x-ray, labs, antibiotics, IV furosemide CODE STATUS: FULL CODE EMERGENCY CONTACT PLAN: Adan Romo Rel To Pat Cell I've updated the PFSH, medications and allergies in the Expanse tabs. INVESTIGATIONS: LABS/MICRO/ECG/IMAGING Vitals are reviewed. Mildly hypertensive. Titrated to half a L of oxygen per nasal cannula. White count is 10.7. Hemoglobin is normal. Platelet count is normal. D-dimer is mildly elevated at 0.73. PH is normal. Sodium is slightly depressed at 129 Otherwise her electrolytes look reasonable. CRP is mildly elevated at 6.3 respiratory screen negative CTA 1. No pulmonary embolus. No CT evidence of right heart strain. 2. Tree-in-bud nodularity and scattered ground-glass airspace opacification, probably infectious in etiology. Repeat CT in 3-6 months to assess stability or resolution. 3. Mildly dilated main pulmonary artery, nonspecific and can be seen the setting of pulmonary arterial hypertension. 4. Cardiomegaly with mild pulmonary vascular congestion and interstitial edema. Echo 10/17 Final Impressions: 1. Normal LV size, moderately increased wall thickness, normal global systolic function with an estimated EF of 55 - 60%. 2. Right ventricular cavity size is normal, global systolic RV function is normal. 3. Mildly enlarged left atrium. 4. The aortic valve is functioning 29 mm Griselda 3 bioprosthesis AVR, moderate stenosis and mild regurgitation. The aortic valve peak velocity is 3.1 m/s, the peak gradient is 37 mmHg, and the mean gradient is 17 mmHg. The aortic valve area is 1.64 cm?? with a dimensionless index of 0.35. The stroke volume index is 47.5 ml/m??. Note that there is an increase in peak velocity across the TAVR THV on todays study as compared to previous ( Vmax 1.9m/s). Suggest clinical correlation and CT morphology to evaluate the TAVR valve. 5. The mitral valve is sclerotic, trace mitral regurgitation. 6. Tricuspid valve is normal. 7. No pericardial effusion. REVIEW OF SYSTEMS: 12-point ROS completed with patient and negative unless otherwise stated in HPI or below. PHYSICAL EXAM: CONSTITUTIONAL: Conversive, good historian. A/O. Knows setting and context. GENERAL: Well-developed and above ideal body weight, in mild respiratory distress - kenzie with trips to the bathroom. VITAL SIGNS: see record. HEENT: Sclerae are anicteric. No petechiae. CARDIAC: rhythm is regular. There is no S3 or rub. ADELIA noted. Extremities show 2+ edema with ropy varicosities. PULM: scattered wheeze; crackles bilaterally NEURO: Speech is fluent. A brief neurologic exam is negative. SKIN: No rashes, petechiae, concerning changes PSYCHIATRIC: Euthymic. ADMIT TO MEDSURG: FLOOR CARE DVT: Lovenox GI: PO intake Time spent: Today I spent 75 minutes seeing the patient, discussing the patient with ER staff, reviewing Expanse and EPIC notes/diagnostics, discussing the care plan with our care time that includes social work, PT/OT, pharmacy, RT, half-way and documenting my impressions and plan in the medical record. MEDICAL NECESSITY FOR HOSPITALIZATION Anticipated midnights in the hospital: Admitting diagnosis: Community-acquired pneumonia, mild congestive heart failure, increasing aortic stenosis, hypoxia Risk of morbidity and mortality: high Acuity is characterized as high and reflected in: Advanced age, type 2 diabetes, replaced aortic valve, community-acquired pneumonia, CHF all increase the risk of morbidity and mortality. This patient will require hospital services as outlined in the assessment and plan in order to stabilize and be safely discharged to a lower level of care. Because of the risk and acuity as described above, this patient cannot be managed at a lower level of care. LENGTH OF STAY: 2 IP ? Anticipated LOS>2 midnights due to acuity of clinical presentation requiring inpatient level of care Radha Romo is a 68 year old female [facility] Medical History (Updated 10/23/24 @ 02:12 by Malia Monroy MD) Osteoarthritis of right hip ?M16.11 - Unilateral primary osteoarthritis, right hip (ICD-10) Gout ?M10.9 - Gout, unspecified (ICD-10) Ovarian cyst ?N83.209 - Unspecified ovarian cyst, unspecified side (ICD-10) Surgical History (Updated 10/23/24 @ 02:12 by Malia Monroy MD) History of left knee replacement ?Z96.652 - Presence of left artificial knee joint (ICD-10) History of arthroscopy of left knee (03/25/99) ?Z98.890 - Other specified postprocedural states (ICD-10) History of arthroscopy of right shoulder (05/26/99) ?Z98.890 - Other specified postprocedural states (ICD-10) S/P ORIF (open reduction internal fixation) fracture (11/07/04) ?Z98.890 - Other specified postprocedural states (ICD-10) ?Z87.81 - Personal history of (healed) traumatic fracture (ICD-10) S/P trigger finger release (05/19/05) ?Z98.890 - Other specified postprocedural states (ICD-10) History of carpal tunnel surgery of left wrist (05/19/05) ?Z98.890 - Other specified postprocedural states (ICD-10) History of removal of retained hardware (05/19/05) ?Z98.890 - Other specified postprocedural states (ICD-10) History of esophagogastroduodenoscopy ?Z98.890 - Other specified postprocedural states (ICD-10) History of tubal ligation ?Z98.51 - Tubal ligation status (ICD-10) History of gastric bypass ?Z98.84 - Bariatric surgery status (ICD-10) History of hysterectomy ?Z90.710 - Acquired absence of both cervix and uterus (ICD-10) History of hernia repair ?Z98.890 - Other specified postprocedural states (ICD-10) ?Z87.19 - Personal history of other diseases of the digestive system (ICD-10) History of cholecystectomy ?Z90.49 - Acquired absence of other specified parts of digestive tract (ICD-10) History of breast biopsy ?Z98.890 - Other specified postprocedural states (ICD-10) History of appendectomy ?Z90.49 - Acquired absence of other specified parts of digestive tract (ICD-10) S/P ORIF (open reduction internal fixation) fracture (04/09/21) ?Z98.890 - Other specified postprocedural states (ICD-10) ?Z87.81 - Personal history of (healed) traumatic fracture (ICD-10) S/P fusion of sacroiliac joint (~07/2021) ?Z98.1 - Arthrodesis status (ICD-10) Social History What is your current living situation?: I presently have a place to live Problems where you live: no known problems Problems where you live details: NA In the past 12 months, utilities in danger of being shut off: no In past 12 months, lack of transportation kept you from medical appts, meetings, work, or getting things needed for daily living: no In the past 12 mos, have been you worried that your food would run out before you had money to buy more?: never true In the past 12 mos, the food you bought just didn't last and you didn't have money to buy more?: never true Highest level of school completed/degree received: 12th grade, no diploma Smoking Status: Former smoker Do you use any of these nicotine containing products: None Second hand tobacco smoke exposure: No How often do you have a drink containing alcohol: never How often do you have six or more drinks on one occasion: Never AUDIT-C Alcohol total score: 0 Non-prescribed substance use: denies use Caffeine: Yes (coffee) How often does anyone, including family, friends and others, physically hurt you: unable to answer How often does anyone, including family, friends and others, insult or talk down to you: unable to answer How often does anyone, including family, friends and others, threaten you with harm: unable to answer How often does anyone, including family, friends and others, scream or curse at you: unable to answer service: No Meds Home Medications and Allergies Home Medications ?Medication ?Instructions ?Recorded ?Confirmed ?Type allopurinol 300 mg tablet mg 05/29/24 History atorvastatin 20 mg tablet mg 05/29/24 History blood sugar diagnostic (Contour 05/29/24 05/29/24 History Next Test Strips) blood-glucose meter (Contour Next 05/29/24 05/29/24 History EZ Meter) escitalopram oxalate 20 mg tablet mg 05/29/24 History fentanyl 25 mcg/hr transdermal 05/29/24 History patch ferrous sulfate 325 mg (65 mg mg 05/29/24 History iron) tablet (FeroSul) furosemide 40 mg tablet mg 05/29/24 History gabapentin 600 mg tablet mg 05/29/24 History hydrocodone 10 mg-acetaminophen tab 05/29/24 History 325 mg tablet losartan 25 mg tablet mg 05/29/24 History metformin 1,000 mg tablet mg 05/29/24 History methocarbamol 750 mg tablet mg 05/29/24 History nystatin 100,000 unit/gram topical topical 05/29/24 History cream omeprazole 20 mg capsule,delayed mg 05/29/24 History release pramipexole 0.125 mg tablet mg 05/29/24 History triamterene 37.5 tab 05/29/24 History mg-hydrochlorothiazide 25 mg tablet Allergies Allergy/AdvReac Type Severity Reaction Status Date / Time cefazolin Allergy Severe Anaphylaxis Verified 10/22/24 17:27 alendronate sodium Allergy Unknown Verified 10/22/24 17:27 oxycodone AdvReac Hallucinati Verified 10/22/24 17:27 ng salicylates AdvReac Verified 10/22/24 17:27 Exam Const: Vital Signs, click to edit/add: Vital Signs - 24 hr 10/22/24 11:24 10/22/24 12:24 10/22/24 12:24 Temperature 97.6 F Pulse Rate Pulse Rate [Pulse Oximeter] 96 Pulse Rate [Right Pulse Oximeter] Respiratory Rate 20 Blood Pressure Blood Pressure [Ri ght Arm] Blood Pressure [Ri ght Upper Arm] 178/93 H Pulse Oximetry 90 91 92 Oxygen Delivery Me thod Room Air Nasal Cannula Oxygen Flow Rate 1 10/22/24 12:53 10/22/24 13:00 10/22/24 13:02 Temperature Pulse Rate 102 H 90 88 Pulse Rate [Pulse Oximeter] Pulse Rate [Right Pulse Oximeter] Respiratory Rate Blood Pressure 170/89 H Blood Pressure [Ri ght Arm] Blood Pressure [Ri ght Upper Arm] Pulse Oximetry 86 L 94 94 Oxygen Delivery Me thod Oxygen Flow Rate 10/22/24 13:15 10/22/24 13:30 10/22/24 13:32 Temperature Pulse Rate 88 87 87 Pulse Rate [Pulse Oximeter] Pulse Rate [Right Pulse Oximeter] Respiratory Rate Blood Pressure 164/91 H Blood Pressure [Ri ght Arm] Blood Pressure [Ri ght Upper Arm] Pulse Oximetry 93 95 89 Oxygen Delivery Me thod Oxygen Flow Rate 10/22/24 13:45 10/22/24 14:00 10/22/24 14:02 Temperature Pulse Rate 87 85 89 Pulse Rate [Pulse Oximeter] Pulse Rate [Right Pulse Oximeter] Respiratory Rate Blood Pressure 149/100 H Blood Pressure [Ri ght Arm] Blood Pressure [Ri ght Upper Arm] Pulse Oximetry 93 93 95 Oxygen Delivery Me thod Oxygen Flow Rate 10/22/24 14:34 10/22/24 14:35 10/22/24 14:45 Temperature Pulse Rate 95 83 82 Pulse Rate [Pulse Oximeter] Pulse Rate [Right Pulse Oximeter] Respiratory Rate Blood Pressure 193/101 H 164/96 H Blood Pressure [Ri ght Arm] Blood Pressure [Ri ght Upper Arm] Pulse Oximetry 90 93 94 Oxygen Delivery Me thod Oxygen Flow Rate 10/22/24 14:46 10/22/24 15:00 10/22/24 15:02 Temperature Pulse Rate 81 85 82 Pulse Rate [Pulse Oximeter] Pulse Rate [Right Pulse Oximeter] Respiratory Rate Blood Pressure 173/96 H Blood Pressure [Ri ght Arm] Blood Pressure [Ri ght Upper Arm] Pulse Oximetry 94 93 95 Oxygen Delivery Me thod Oxygen Flow Rate 10/22/24 15:33 10/22/24 16:21 10/22/24 16:21 Temperature 97.9 F Pulse Rate Pulse Rate [Pulse Oximeter] Pulse Rate [Right Pulse Oximeter] 79 Respiratory Rate 24 24 Blood Pressure 109/97 H Blood Pressure [Ri ght Arm] 179/91 H Blood Pressure [Ri ght Upper Arm] Pulse Oximetry 92 93 Oxygen Delivery Me thod Nasal Cannula Nasal Cannula Oxygen Flow Rate 1 1 10/22/24 17:24 10/22/24 17:24 10/22/24 17:24 Temperature Pulse Rate 95 Pulse Rate [Pulse Oximeter] Pulse Rate [Right Pulse Oximeter] Respiratory Rate 18 Blood Pressure Blood Pressure [Ri ght Arm] Blood Pressure [Ri ght Upper Arm] Pulse Oximetry 95 95 Oxygen Delivery Me thod Nasal Cannula Oxygen Flow Rate 1 10/22/24 20:11 Temperature 98.0 F Pulse Rate Pulse Rate [Pulse Oximeter] Pulse Rate [Right Pulse Oximeter] 79 Respiratory Rate 20 Blood Pressure Blood Pressure [Ri ght Arm] 164/90 H Blood Pressure [Ri ght Upper Arm] Pulse Oximetry 93 Oxygen Delivery Me thod Nasal Cannula Oxygen Flow Rate 0.5 Hospitalist - H&P: Result Labs Labs: Short CBC 10/22/24 Range/Units 12:45 WBC 10.71 (4.50-11.00) K/uL Hgb 12.8 (12.0-16.0) gm/dL Hct 39.6 (33.0-51.0) % Plt Count 155 (140-440) K/uL BMP 10/22/24 12:45 Sodium 129 L Potassium 3.7 Chloride 91 L Carbon Dioxide 30 BUN 14 Creatinine 0.5 Glucose 175 H Calcium 8.9 Cardiac Enzymes 10/22/24 Range/Units 12:45 Troponin I < 0.01 L (0.01-0.04) ng/mL Liver Function 10/22/24 Range/Units 12:45 Total Bilirubin 0.8 (0.1-1.5) mg/dL AST 26 (12-35) U/L ALT 23 (4-35) U/L Alkaline Phosphatase 76 (40-150) U/L Albumin 4.5 (3.3-5.0) g/dL Assessment and Plan Assessment and plan (1) Acute respiratory failure with hypoxia: Problem comment: Related to right lower lobe pneumonia and acute congestive heart failure Status: Acute (2) Community acquired pneumonia: Problem comment: RLL tree-in-bud nodularity; ground glass opacifications. Azithromycin and Rocephin given in the ED but I see a cefazolin anaphylaxis allergy. No reaction seen from patient. started Levaquin for am dosing. No steroids at this time. DuoNebs, RT consult, oxygen to titrate, Aerobika/IS. Status: Acute (3) Congestive heart failure: Problem comment: Just had echo in 10/17; 40mg Lasix x 1 - normally gets lasix 40 q am. we can adjust based on clinical response. Status: Acute (4) Hyponatremia: Problem comment: 129 with a glucose at 175 holding maxzide Status: Acute (5) CARA on CPAP: Problem comment: - will bring in unit from home tomorrow Status: Acute (6) Status post transcatheter aortic valve replacement (TAVR) using bioprosthesis: Problem comment: The aortic valve is functioning 29 mm Griselda 3 bioprosthesis AVR -several years ago Status: Acute (7) Type 2 diabetes mellitus: Problem comment: -monotherapy with metformin. -on hold. Accu-Cheks with sliding scale insulin. Status: Acute (8) Hypertension: Problem comment: Low-sodium. Holding Maxzide. consider different agent; following for now. Status: Acute (9) Hypothyroidism: Problem comment: -adding TSH Status: Acute (10) Major depression: Problem comment: continue home med Status: Acute (11) Osteoporosis: Status: Acute
[2024-10-23] MEDS: IPRAT-ALBUT 0.5-2.5 MG/3 ML NEB 1 NEB IH ×5 (03:57→20:04)
[2024-10-23] MEDS: HYDROCODONE-ACETAMIN 5-325 MG 1 TAB 2 TAB PO ×3 (03:57→22:24)
[2024-10-23 04:23] LABS: Appearance Urine Clear (Clear); Bilirubin Urine Negative (Negative); Blood Urine Trace-intact (Negative); Color Urine Yellow (Yellow); Glucose Urine Negative (Negative); Ketones Urine Negative (Negative); Leukocyte Esterase Urine Negative (Negative); Nitrite Urine Negative (Negative); Protein Urine 3+ (Negative); Specific Gravity Urine 1.015 (1.000-1.030); Urobilinogen Urine 0.2 (0.2-1.0)
[2024-10-23 04:36] LABS: Legionella pneumo Ag Urine L. pneumo Negative (Negative); S pneumo Ag Urine S. pneumo Negative (Negative)
[2024-10-23 04:39] LABS: RBC Urine 0-2 (0-2); Squamous Epithelial Cell Urine Few (None-Few); WBC Urine 0-2 (0-5)
[2024-10-23] MEDS: OMEPRAZOLE 20 MG CAPSULE DR PO (06:05)
[2024-10-23 06:36] LABS: HCO3 VBG 35 mmol/L (21-28); PCO2 VBG 54 mmHG (40-50); PO2 VBG 49.5 mmHG (25-47); pH VBG 7.425 (7.32-7.43)
[2024-10-23 06:41] LABS: Basophils Absolute Auto 0.02 K/uL (0.00-0.30); Basophils Percent Auto 0.2 % (0.0-3.0); Eosinophils Absolute Auto 0.06 K/uL (0.00-0.50); Eosinophils Percent Auto 0.7 % (0.0-7.0); Hematocrit 37.7 % (33.0-51.0); Hemoglobin* 12.3 gm/dL (12.0-16.0); Immature Granulocytes Abs Auto 0.01 K/uL (0.00-0.30); Immature Granulocytes Pct Auto 0.1 %; Lymphocytes Percent Auto 14.1 % (20-44); Mean Corpuscular HGB Conc 33 gm/dL (32-36); Mean Corpuscular Hemoglobin 30 pg (26-34); Mean Corpuscular Volume 93 fL (80-100); Neutrophils Percent Auto 73.9 % (42.0-72.0); Platelet Count* 184 K/uL (140-440); RDW Coefficient of Variation % 14.5 % (11.5-15.5); Red Blood Count 4.04 m/uL (4.00-5.20); White Blood Count* 8.56 K/uL (4.50-11.00)
[2024-10-23 06:48] LABS: Slide Review Reflex No
--- NOTE | 2024-10-23 06:59 | PC.NURSE ---
Pt is alert and oriented x3. Afebrile. Pt reports 8-10/10 dull generalized pain, managed with PRN?medications.?Pt was on 0.5L throughout night to maintain O2 stats of 90% and higher. Pt was titrated down to room air around 0600 tolerating well. Pt is lung sounds have course crackles. Pt has course cough, managed with PRN medication per pt request. Pt is using IS with vs and IND.?Pt is up SBA with cane, voiding and tolerating a regular diet. Pt requested external clarke catheter overnight, catheter is patent and draining. ?
[2024-10-23 07:00] LABS: Chloride* 92 mmol/L (96-114)
[2024-10-23 07:01] LABS: Potassium* 3.4 mmol/L (3.6-5.1); Sodium* 132 mmol/L (135-149)
[2024-10-23 07:03] LABS: Anion Gap 6 mEq/L (7-15); Aspartate Amino Transferase* 23 U/L (12-35); Bilirubin Total* 0.6 mg/dL (0.1-1.5); Carbon Dioxide* 34 mmol/L (20-32); Creatinine* 0.5 mg/dL (0.5-1.5); Estimated Glomerular Filt Rate 101 ml/min; Total Protein* 6.8 g/dL (6.0-8.3)
[2024-10-23 07:04] LABS: Alanine Aminotransferase* 20 U/L (4-35); Alkaline Phosphatase* 74 U/L (40-150); Blood Urea Nitrogen* 12 mg/dL (7-30); Calcium* 8.7 mg/dL (8.4-10.6); Glucose* 148 mg/dL (60-115)
[2024-10-23 07:13] LABS: Troponin I* < 0.01 ng/mL (0.01-0.04)
[2024-10-23 07:25] LABS: C Reactive Protein* 8.8 mg/dL (0.5-1.0)
[2024-10-23] MEDS: levoFLOXacin 500 MG TABLET PO (09:09)
[2024-10-23] MEDS: GABAPENTIN 600 MG TABLET 1200 MG PO ×3 (09:09→20:09)
[2024-10-23] MEDS: FUROSEMIDE 40 MG TABLET PO (09:09)
[2024-10-23] MEDS: LOSARTAN POTASSIUM 50 MG TABLET 25 MG PO (09:09)
[2024-10-23] MEDS: allopurinoL 300 MG TABLET PO (09:10)
[2024-10-23] MEDS: SODIUM CHLORIDE 0.9 % (FLUSH) 10 ML SYRINGE 5 ML IVF (09:10)
[2024-10-23] MEDS: ESCITALOPRAM 10 MG TABLET 20 MG PO (09:10)
[2024-10-23] MEDS: ACETAMINOPHEN 325 MG TABLET PO (10:35)
[2024-10-23 10:37] LABS: HCO3 VBG 35 mmol/L (21-28); PCO2 VBG 56 mmHG (40-50); PO2 VBG < 30.1 mmHG (25-47); pH VBG 7.407 (7.32-7.43)
[2024-10-23] MEDS: INSULIN ASPART 100 UNIT/ML SUBCUT ×2 (12:52→21:00)
--- NOTE | 2024-10-23 16:22 | PM.IMPN1 ---
Progress Note: A&P Assessment and plan (1) Acute respiratory failure with hypoxia: Problem details: Related to right lower lobe pneumonia and acute congestive heart failure VBG pH 7.407, pCO2 56, HC03 35 Has weaned to room air, oxygen saturations > 90% Status: Acute (2) Community acquired pneumonia: Problem details: RLL tree-in-bud nodularity; ground glass opacifications. No leukocytosis. Strep pneumo/Legionella negative. Procalcitonin 0.09 Azithromycin and Rocephin given in the ED but I see a cefazolin anaphylaxis allergy. No reaction seen from patient. started Levaquin for am dosing. No steroids at this time. DuoNebs, RT consult, oxygen to titrate, Aerobika/IS. Status: Acute (3) Congestive heart failure: Problem details: Just had echo in 10/17; 40mg Lasix x 1 - normally gets lasix 40 q am. Will continue IV diuresis bid for now Status: Acute (4) Hyponatremia: Problem details: 129 with a glucose at 175 holding maxzide Improved to 132 Status: Acute (5) CARA on CPAP: Problem details: -continue home CPAP Status: Acute (6) Status post transcatheter aortic valve replacement (TAVR) using bioprosthesis: Problem details: The aortic valve is functioning 29 mm Griselda 3 bioprosthesis AVR -several years ago Status: Acute (7) Type 2 diabetes mellitus: Problem details: -monotherapy with metformin. -on hold. Accu-Cheks with sliding scale insulin. Status: Acute (8) Hypertension: Problem details: Low-sodium. Holding Maxzide. consider different agent; following for now. Status: Acute (9) Hypothyroidism: Problem details: -TSH 2.17. Not currently on levothyroxine Status: Acute (10) Major depression: Problem details: continue home med Status: Acute Time Spent With Patient Total time spent: Total time spent caring for the patient today was 45 minutes. This includes time spent for the visit reviewing the chart, time spent during the visit, time spent after the visit and documentation and planning in coordination of care. Subjective Date Seen: 10/23/24 Interval history: Patient seen lying in bed this morning. No significant change since admission. Remains on nasal cannula for oxygen supplementation. Continues with a cough. Mild frontal headache. Denies chest pain. No nausea or vomiting. Remains afebrile. Exam Narrative: Exam Narrative: PHYSICAL EXAM General: Pleasant, appears tired otherwise NAD HEENT: Normocephalic, atraumatic, sclera white, EOMI, oral mucosa moist Cardiovascular: RRR, S1S2. Pulmonary: Mildly diminished course breath sounds throughout, mild dyspnea Abdominal: Soft, nondistended, NTTP Neurological: Alert, answering questions appropriately, cranial nerves intact, no focal findings Extremities: No gross joint deformity or swelling. AROMI. Neurovascularly intact Skin: Warm, dry. Const: Vital Signs, click to edit/add: Vital Signs - 24 hr 10/22/24 17:24 10/22/24 17:24 10/22/24 17:24 Temperature Pulse Rate 95 Pulse Rate [Right Pulse Oximeter] Respiratory Rate 18 Blood Pressure [Ri ght Arm] Pulse Oximetry 95 95 Oxygen Delivery Me thod Nasal Cannula Oxygen Flow Rate 1 10/22/24 20:11 10/22/24 23:23 10/22/24 23:23 Temperature 98.0 F 98.1 F Pulse Rate Pulse Rate [Right Pulse Oximeter] 79 79 87 Respiratory Rate 20 20 20 Blood Pressure [Ri ght Arm] 164/90 H 158/85 H Pulse Oximetry 93 94 Oxygen Delivery Me thod Nasal Cannula Nasal Cannula Oxygen Flow Rate 0.5 0.5 10/23/24 02:26 10/23/24 04:04 10/23/24 07:00 Temperature 98.1 F Pulse Rate 92 Pulse Rate [Right Pulse Oximeter] 92 90 Respiratory Rate 18 18 Blood Pressure [Ri ght Arm] 161/81 H Pulse Oximetry 90 Oxygen Delivery Me thod Nasal Cannula Oxygen Flow Rate 0.5 10/23/24 07:00 10/23/24 07:00 10/23/24 11:00 Temperature 98.0 F 98.3 F Pulse Rate 84 Pulse Rate [Right Pulse Oximeter] 91 78 Respiratory Rate 18 18 Blood Pressure [Ri ght Arm] 153/78 H 140/76 H Pulse Oximetry 90 94 Oxygen Delivery Me thod Nasal Cannula Room Air Oxygen Flow Rate 0.5 10/23/24 12:45 Temperature Pulse Rate Pulse Rate [Right Pulse Oximeter] Respiratory Rate 20 Blood Pressure [Ri ght Arm] Pulse Oximetry 92 Oxygen Delivery Me thod Room Air Oxygen Flow Rate Labs Labs: Laboratory Results - last 24 hr 10/22/24 10/23/24 10/23/24 12:45 02:04 04:15 WBC RBC Hgb Hct MCV MCH MCHC RDW Coeff of Francisca Plt Count Neut % (Auto) Lymph % (Auto) [place] % (Auto) Eos % (Auto) Baso % (Auto) Neut # (Auto) Lymph # (Auto) [place] # (Auto) Eos # (Auto) Baso # (Auto) Abs Immat Gran (auto) Imm/Tot Granulo (auto) VBG pH VBG pCO2 VBG pO2 VBG HCO3 Sodium Potassium Chloride Carbon Dioxide Anion Gap BUN Creatinine Estimated Creat Clear Estimated GFR Glucose Calcium Total Bilirubin AST ALT Alkaline Phosphatase Troponin I C-Reactive Protein Total Protein Albumin TSH 2.170 Urine Color Yellow Urine Appearance Clear Urine pH 7.0 Ur Specific [place] 1.015 Urine Protein 3+ A Urine Glucose (UA) Negative Urine Ketones Negative Urine Blood Trace-intact A Urine Nitrite Negative Urine Bilirubin Negative Urine Urobilinogen 0.2 Ur Leukocyte Esterase Negative Urine RBC 0-2 Urine WBC 0-2 Ur Squamous Epith Cells Few Urine Bacteria None Urine L. pneumophilia Ag L. pneumo Negative Urine Strep pneumoniae Ag S. pneumo Negative Lab Acknowledgement Test Added 10/23/24 10/23/24 05:58 10:19 WBC 8.56 RBC 4.04 Hgb 12.3 Hct 37.7 MCV 93 MCH 30 MCHC 33 RDW Coeff of Francisca 14.5 Plt Count 184 Neut % (Auto) 73.9 H Lymph % (Auto) 14.1 L [place] % (Auto) 11.0 Eos % (Auto) 0.7 Baso % (Auto) 0.2 Neut # (Auto) 6.30 Lymph # (Auto) 1.20 [place] # (Auto) 0.90 Eos # (Auto) 0.06 Baso # (Auto) 0.02 Abs Immat Gran (auto) 0.01 Imm/Tot Granulo (auto) 0.1 VBG pH 7.425 7.407 VBG pCO2 54 H 56 H VBG pO2 49.5 H < 30.1 VBG HCO3 35 H 35 H Sodium 132 L Potassium 3.4 L Chloride 92 L Carbon Dioxide 34 H Anion Gap 6 L BUN 12 Creatinine 0.5 Estimated Creat Clear 39.50 Estimated GFR 101 Glucose 148 H Calcium 8.7 Total Bilirubin 0.6 AST 23 ALT 20 Alkaline Phosphatase 74 Troponin I < 0.01 L C-Reactive Protein 8.8 H Total Protein 6.8 Albumin 4.0 TSH Urine Color Urine Appearance Urine pH Ur Specific [place] Urine Protein Urine Glucose (UA) Urine Ketones Urine Blood Urine Nitrite Urine Bilirubin Urine Urobilinogen Ur Leukocyte Esterase Urine RBC Urine WBC Ur Squamous Epith Cells Urine Bacteria Urine L. pneumophilia Ag Urine Strep pneumoniae Ag Lab Acknowledgement
--- NOTE | 2024-10-23 19:15 | PC.NURSE ---
End of shift: patient alert and oriented, VSS, RA. Ambulating indep in room with cane. Tolerating a diabetic diet. PRN tylenol and [place] admin. for chronic pain. Patient encouraged to use Aerobika with Nebs and tolerating well.
[2024-10-23] MEDS: ENOXAPARIN 40 MG/0.4 ML INJ SUBCUT (20:04)
[2024-10-23] MEDS: PRAMIPEXOLE 0.125 MG TABLET 0.25 MG PO (20:04)
[2024-10-23] MEDS: ATORVASTATIN 10 MG TABLET 20 MG PO (20:04)
[2024-10-24 03:25] VITALS: BP 141/78; PULSE 92; TEMP 36.4; O2SAT 91
[2024-10-24] MEDS: IPRAT-ALBUT 0.5-2.5 MG/3 ML NEB 1 NEB IH ×2 (03:50→08:33)
[2024-10-24] MEDS: OMEPRAZOLE 20 MG CAPSULE DR PO (05:49)
--- NOTE | 2024-10-24 06:34 | PC.NURSE ---
End of shift [id number]: A&O pleasant and cooperative. VSS. afebrile. Pt tolerating room air. Intermittent dry cough reported. Reports generalized chronic pain throughout shift. See eMAR for interventions. Up at solo in room. Using call light appropriately.
[2024-10-24 07:00] VITALS: BP 157/92; PULSE 79; PULSE 95; RESP 16; TEMP 36.6; O2SAT 95
[2024-10-24] MEDS: levoFLOXacin 500 MG TABLET PO (08:32)
[2024-10-24] MEDS: allopurinoL 300 MG TABLET PO (08:32)
[2024-10-24] MEDS: ESCITALOPRAM 10 MG TABLET 20 MG PO (08:32)
[2024-10-24] MEDS: GABAPENTIN 600 MG TABLET 1200 MG PO (08:32)
[2024-10-24] MEDS: LOSARTAN POTASSIUM 50 MG TABLET 25 MG PO (08:33)
[2024-10-24] MEDS: buPROPion HCL SR 150 MG TAB PO (08:33)
[2024-10-24 08:55] LABS: Hematocrit 40.3 % (33.0-51.0); Hemoglobin* 12.9 gm/dL (12.0-16.0); Mean Corpuscular HGB Conc 32 gm/dL (32-36); Mean Corpuscular Hemoglobin 30 pg (26-34); Mean Corpuscular Volume 94 fL (80-100); Platelet Count* 197 K/uL (140-440); Red Blood Count 4.28 m/uL (4.00-5.20); White Blood Count* 7.41 K/uL (4.50-11.00)
[2024-10-24 08:59] LABS: Slide Review Reflex No
[2024-10-24 09:12] LABS: Chloride* 93 mmol/L (96-114); Sodium* 133 mmol/L (135-149)
[2024-10-24 09:13] LABS: Potassium* 3.7 mmol/L (3.6-5.1)
[2024-10-24 09:15] LABS: Anion Gap 5 mEq/L (7-15); Carbon Dioxide* 35 mmol/L (20-32); Creatinine* 0.6 mg/dL (0.5-1.5); Estimated Glomerular Filt Rate 97 ml/min
[2024-10-24 09:16] LABS: Blood Urea Nitrogen* 14 mg/dL (7-30); Calcium* 8.7 mg/dL (8.4-10.6); Glucose* 154 mg/dL (60-115)
[2024-10-24] MEDS: FUROSEMIDE 40 MG TABLET PO (09:27)
[2024-10-24] MEDS: buPROPion HCL 75 MG TABLET PO (09:27)
--- NOTE | 2024-10-24 12:00 | P.DS_ITS ---
DS: Providers Provider Date Seen: 10/24/24 Date of admission: 10/22/24 20:13 Primary care physician: Arnoldo Mejia MD Admitting Clinician: Malia Monroy MD Consults: 10/22/24 17:24 Consult to Occupational Therapy [CONS] Routine Comment: Reason(s) for OT Consult:: Evaluate and Treat Any Restrictions?:: No Restrictions Consult to Physical Therapy [CONS] Routine Comment: Reason(s) for PT Consult:: Evaluate and Treat Any Restrictions?:: No Restrictions Consult to Respiratory Therapy [CONS] Routine Comment: Reason(s) for RT Consult:: Consult Consult to Team Psychologist [CONS] Routine Comment: Reason for Consult:: Social Service Consult Attending Physician on discharge: COLE Chauhan, [facility] Hospitalist Date of Discharge: 10/24/24 DS: Diagnosis Discharge Diagnosis (1) Acute respiratory failure with hypoxia: Status: Resolved Problem details: Related to right lower lobe pneumonia and acute congestive heart failure VBG pH 7.407, pCO2 56, HC03 35 Has weaned to room air, oxygen saturations > 90%. No further oxygen supplementation necessary (2) Community acquired pneumonia: Status: Acute Problem details: RLL tree-in-bud nodularity; ground glass opacifications. No leukocytosis. Strep pneumo/Legionella negative. Procalcitonin 0.09 Azithromycin and Rocephin given in the ED but I see a cefazolin anaphylaxis allergy. No reaction seen from patient. started Levaquin for am dosing. No steroids at this time. DuoNebs, RT consult, oxygen to titrate, Aerobika/IS. Discharged home to complete course of Levaquin. Continue Mucinex, Aerobika, incentive spirometry (3) Congestive heart failure: Status: Acute Problem details: Just had echo in 10/17; 40mg Lasix x 1 - normally gets lasix 40 q am. Will continue IV diuresis bid for now Continue previous home dose of Lasix 40 mg daily. Outpatient follow-up with PCP (4) Hyponatremia: Status: Acute Problem details: 129 with a glucose at 175 holding maxzide Improved to 132 (5) CARA on CPAP: Status: Acute Problem details: -continue home CPAP (6) Status post transcatheter aortic valve replacement (TAVR) using bioprosthesis: Status: Acute Problem details: The aortic valve is functioning 29 mm Griselda 3 bioprosthesis AVR -several years ago (7) Type 2 diabetes mellitus: Status: Acute Problem details: -monotherapy with metformin. -on hold. Accu-Cheks with sliding scale insulin. Continue home medications (8) Hypertension: Status: Acute Problem details: Low-sodium. Holding Maxzide. consider different agent; following for now. Resume home medications at discharge (9) Hypothyroidism: Status: Acute Problem details: -TSH 2.17. Not currently on levothyroxine (10) Major depression: Status: Acute Problem details: continue home med DS: Summary Hospital Course Hospital Course: Course of care and details as noted above. Remainder of chronic medical comorbidities were monitored and managed with home medications. Status at Discharge Functional status at discharge: independent ambulation Overall status at discharge: patient is back to baseline Time Spent with Patient Time attestation: Total time spent providing and/or coordinating discharge services: Time spent: Greater than 30 minutes Exam Narrative: Exam Narrative: PHYSICAL EXAM General: Pleasant, conversant, NAD Cardiovascular: RRR Pulmonary: No dyspnea Neurological: Alert, answering questions appropriately Skin: Warm, dry. Const: Vital Signs, click to edit/add: Vital Signs - 24 hr 10/23/24 12:45 10/23/24 15:00 10/23/24 15:00 Temperature 97.6 F Pulse Rate [Right Pulse Oximeter] 88 88 Respiratory Rate 20 18 18 Blood Pressure [Ri ght Arm] 156/96 H Pulse Oximetry 92 94 Oxygen Delivery Me thod Room Air Room Air 10/23/24 19:57 10/23/24 23:00 10/24/24 03:25 Temperature 97.8 F 98.2 F 97.5 F L Pulse Rate [Right Pulse Oximeter] 83 89 92 Respiratory Rate 18 Blood Pressure [Ri ght Arm] 158/81 H 137/74 141/78 H Pulse Oximetry 92 93 91 Oxygen Delivery Me thod Room Air Room Air Room Air 10/24/24 07:00 10/24/24 07:00 Temperature 97.9 F Pulse Rate [Right Pulse Oximeter] 95 79 Respiratory Rate 16 16 Blood Pressure [Ri ght Arm] 157/92 H Pulse Oximetry 95 Oxygen Delivery Me thod Room Air DS: Data Data Completed and Pending Labs on day of discharge: Labs from last 24 hours 10/24/24 08:48 WBC 7.41 RBC 4.28 Hgb 12.9 Hct 40.3 MCV 94 MCH 30 MCHC 32 Plt Count 197 Sodium 133 L Potassium 3.7 Chloride 93 L Carbon Dioxide 35 H Anion Gap 5 L BUN 14 Creatinine 0.6 Estimated Creat Clear 39.50 Estimated GFR 97 Glucose 154 H Calcium 8.7 Imaging CTA chest: Attestation: I have reviewed the pertinent imaging results. Radiologist's impression: Lower neck: The visualized thyroid is unremarkable. Cardiovascular: Contrast opacification of the pulmonary arterial tree is adequate. Heart size is enlarged. Thoracic aorta is normal in caliber. Mildly enlarged main pulmonary artery measuring 3.5 cm. No significant atherosclerotic calcifications of the aortic arch. Dense coronary arterial calcifications. No pulmonary embolus. TAVR. Mediastinum and lymph nodes: Prominent mediastinal lymph nodes, probably reactive. No pathologic mediastinal or hilar lymphadenopathy by size criteria. Lungs: Tree-in-bud nodularity and scattered airspace ground-glass opacifications, predominantly involving the right lower lobe. Mild pulmonary vascular congestion and interstitial edema. Dependent atelectasis. Linear bandlike opacification of the lung bases bilaterally, likely subsegmental atelectasis and/or scarring. Mosaic attenuation pattern of opacification diffusely Airways: The trachea remains patent and midline. Mild diffuse peribronchial wall thickening. Pleura: No pleural effusions or pneumothorax Chest wall: Unremarkable. Prominent axillary lymph nodes that do not meet size criteria for lymphadenopathy. Bones: No acute osseous abnormalities. Mild degenerative changes of the thoracic spine. Old healed right-sided rib fracture. Upper abdomen: No acute findings in the visualized upper abdomen. No reflux of contrast material into the IVC. IMPRESSION: 1. No pulmonary embolus. No CT evidence of right heart strain. 2. Tree-in-bud nodularity and scattered ground-glass airspace opacification, probably infectious in etiology. Repeat CT in 3-6 months to assess stability or resolution. 3. Mildly dilated main pulmonary artery, nonspecific and can be seen the setting of pulmonary arterial hypertension. 4. Cardiomegaly with mild pulmonary vascular congestion and interstitial edema. Discharge Plan Discharge Disposition: Home, Self-Care Date of Admission: 10/22/24 20:13 Attending Provider on Discharge: Erum Dougherty Primary Care Provider: Arnoldo Mejia Condition: Improved Anticipated Discharge Date/Time: 10/24/24 11:49 Discharge Medications: New levofloxacin 500 mg Tablet 500 mg PO Q24H 3 Days Qty: 3 0RF guaifenesin [Mucinex] 600 mg tablet extended release 12hr 600 mg PO BID Qty: 10 0RF furosemide 40 mg Tablet 40 mg PO DAILY@0800 Qty: 30 0RF Continued gabapentin 600 mg tablet 1,200 mg PO TID Patient Comments: [NO ORIGINAL SIG] atorvastatin 20 mg tablet 20 mg PO DAILY Patient Comments: [NO ORIGINAL SIG] (DME) blood-glucose meter [Contour Next EZ Meter] Mis MISCELLANEOUS Patient Comments: USE TO TEST ONCE TO TWICE DAILY (DME) Contour Next Test Strips Strip MISCELLANEOUS Patient Comments: USE 1 STRIP TO CHECK GLUCOSE ONCE DAILY hydrocodone-acetaminophen 10-325 mg tablet 1 tab PO Q4H PRN Patient Comments: TAKE 1 TABLET BY MOUTH EVERY 4 HOURS NEEDED FOR PAIN . DO NOT EXCEED 6 PER 24 HOURS - USE DATES 05/21/24-06/19/24 methocarbamol 750 mg tablet 750 mg PO TID Patient Comments: TAKE 1 TABLET BY MOUTH THREE TIMES DAILY NEEDED FOR MUSCLE SPASM ferrous sulfate [FeroSul] 325 mg (65 mg iron) tablet 325 mg PO DAILY Patient Comments: TAKE 1 TABLET BY MOUTH EVERY DAY WITH A MEAL metformin 1,000 mg tablet 1,000 mg PO BIDWMEAL Patient Comments: [NO ORIGINAL SIG] losartan 25 mg tablet 25 mg PO DAILY Patient Comments: [NO ORIGINAL SIG] pramipexole 0.125 mg tablet 0.125 mg PO HS Patient Comments: [NO ORIGINAL SIG] triamterene-hydrochlorothiazid 37.5-25 mg tablet 1 tab PO DAILY Patient Comments: [NO ORIGINAL SIG] omeprazole 20 mg capsule,delayed release(DR/EC) 20 mg PO DAILY Patient Comments: [NO ORIGINAL SIG] allopurinol 300 mg tablet 300 mg PO DAILY Patient Comments: [NO ORIGINAL SIG] fentanyl 25 mcg/hr patch 72 hour 1 patch transdermal Q48H PRN escitalopram oxalate 20 mg tablet 20 mg PO DAILY Patient Comments: [NO ORIGINAL SIG] bupropion HCl 150 mg tablet sustained-release 12 hr 150 mg PO BID bupropion HCl 75 mg tablet 75 mg PO BID Discharge Orders: Discharge Order (Routine); Ordered 10/24/24 Ordered By: Erum Dougherty Patient Education: Furosemide (By mouth), Guaifenesin (By mouth), Levofloxacin (By mouth), Heart Failure (GEN), Bacterial Pneumonia (GEN) Additional Instructions: Finish levaquin for your pneumonia. Continue taking Mucinex as well as using the incentive spirometer and aerobika. Resume taking furosemide as you had done in the past. Activity Level: Activity as Tolerated Discharge Diet: Regular Follow Up Appointments: Adan Cook MD [Referring] - 11/01/24 9:10 am ([facility] for postop hospital follow-up.) Arnoldo Mejia MD [Primary Care Provider] - (Post hospital follow-up 3-5 days) Provider,Not a Local [Non-Staff] - Forms: [employer] Info Instructions
--- NOTE | 2024-10-24 13:28 | PC.NURSE ---
Discharge: patient alert and oriented x4. Ambulating hallway to BR and chair indepe. 95% on RA. Afebrile this shift. IV removed prior, tip intact. Discharge instructions given and signed. patient verbalized understanding of instructions. VSS.
== END 2024-10-24 13:00 | disposition home or self-care (01) | DRG 193 ==
LOC: ED 15:39 → MEDSURG 15:56
PROVIDERS: Physician Assistant; Admitting Provider Family Medicine; Emergency Provider Family Medicine; PCP Surgery; Visit Provider Family Medicine
DX: J18.9 Pneumonia, unspecified organism (principal); I50.33 Acute on chronic diastolic (congestive) heart failure; J96.01 Acute respiratory failure with hypoxia; Z68.41 Body mass index [BMI] 40.0-44.9, adult; E87.1 Hypo-osmolality and hyponatremia; I11.0 Hypertensive heart disease with heart failure; Z98.84 Bariatric surgery status; I83.12 Varicose veins of left lower extremity with inflammation; I83.11 Varicose veins of right lower extremity with inflammation; G89.29 Other chronic pain; F32.A Depression, unspecified; I10 Essential (primary) hypertension; E66.9 Obesity, unspecified; I35.0 Nonrheumatic aortic (valve) stenosis; E11.9 Type 2 diabetes mellitus without complications; Z79.84 Long term (current) use of oral hypoglycemic drugs; G47.33 Obstructive sleep apnea (adult) (pediatric); Z99.89 Dependence on other enabling machines and devices; Z95.2 Presence of prosthetic heart valve; F32.9 Major depressive disorder, single episode, unspecified; E03.9 Hypothyroidism, unspecified; M81.0 Age-related osteoporosis without current pathological fracture
CPT/HCPCS: 36415; 71045; 71275; 80048; 80053; 81001; 82803; 82962; 83605; 83880; 84145; 84443; 84484; 85025; 85027; 85379; 86140; 87449; 87631; 87899; 93005; 94664; 94761; 97116; 97162; 97165; 97535; 99284; 99285; A9270; J0696; J1650; J1940; Q9967; S0106